=== PATIENT | male | born 1945 | race Caucasian/White ===

== ENCOUNTER 2016-11-17 00:06 | Observation (INO) | payer OTHER ==
[~2016-11-17] VITALS: Ht 182.9 cm; Wt 143.0 kg
[~2016-11-17 00:06] MED LIST: TAMS0.4C38 PO
[2016-11-17] MEDS ORDERED: SODIUM CHLORIDE 0.9% 1000ML 1,000 ML IV STA (00:27)
[2016-11-17] MEDS ORDERED: LORAZEPAM 2 MG/ML 1 ML VIAL IV STA (00:27)
[2016-11-17] MEDS ORDERED: ONDANSETRON INJ 2 MG/ML 2 ML VIAL IV STA (00:27)
[2016-11-17 00:39] LABS: HEMATOCRIT 43.2 % (42-52); MEAN CELL VOLUME 87.4 fL (80-100); MEAN CORPUSCULAR HEMOGLOBIN 31.2 pg (25-34); MEAN CORPUSCULAR HGB CONC 35.6 g/dl (32-36); MEAN PLATELET VOLUME 9.6 fL (7.4-10.4); PLATELET COUNT 192 K/uL (130-400); RED BLOOD COUNT 4.94 M/uL (4.7-6.1); WHITE BLOOD COUNT 8.95 K/uL (4.8-10.8)
[2016-11-17] MEDS ORDERED: ASCO500C43 PO (00:43)
[2016-11-17] MEDS ORDERED: OMEG10007 PO (00:43)
--- NOTE | 2016-11-17 00:52 | EMERGENCY ROOM VISIT NOTE ---
History Report prepared by Nahomi: Santi Downs Under the Supervision of: Dr. Dayna Samaniego M.D. 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 History of Present Illness The patient is a 71 year old male who presents to the Emergency Room with complaints of waxing and waning dizziness that began 90 minutes prior to arrival. The patient states that he was sitting down watching football when the room began to spin around him. He is still currently dizzy and also complains of nausea and vomiting. He denies unilateral weakness but has difficulty ambulating d/t dizziness. 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 A total of 10 systems reviewed and were otherwise negative. Past Medical & Surgical Medical Problems: (1) BPH (benign prostatic hypertrophy) (2) Dizziness (3) Hypertension (4) Obesity Surgical Problems: (1) H/O cataract removal with insertion of prosthetic lens (2) History of total left hip arthroplasty Family History Diabetes mellitus FHx: heart disease Hypertension Kidney disease Kidney stones Social History Smoking Status: Never Smoker Alcohol Use: none Marital Status: Housing Status: lives with family Current/Historical Medications Scheduled Ascorbic Acid (Vitamin C 500 mg), 1,000 MG PO DAILY Fish Oil ([place]-3), 1 CAP PO DAILY Tamsulosin Hcl (Flomax), 0.4 MG PO DAILY Scheduled PRN Cyclobenzaprine HCl (Cyclobenzaprine HCl), 10 MG PO TID PRN for Muscle Spasms Meclizine HCl (Meclizine HCl), 1 TAB PO Q8 PRN for vertigo Allergies Coded Allergies: Levofloxacin (Verified Allergy, Unknown, HIVES, 11/17/16) per records of Dr. NERI. Ppatient unsure when he recieved this med Physical Exam Vital Signs Date Time Temp Pulse Resp B/P Pulse Ox O2 Delivery O2 Flow Rate FiO2 11/17/16 05:05 68 20 150/82 93 Room Air 11/17/16 04:32 72 11/17/16 03:53 65 18 156/82 93 Room Air 11/17/16 03:33 60 18 173/101 95 Room Air 11/17/16 02:38 65 18 136/82 98 Room Air 11/17/16 01:49 65 18 186/83 96 Room Air 11/17/16 01:12 60 16 156/79 95 Nasal Cannula 2.0 11/17/16 01:12 95 Nasal Cannula 2.0 11/17/16 00:45 58 18 160/85 95 11/17/16 00:26 57 11/17/16 00:16 98 Room Air 11/17/16 00:09 36.3 58 18 169/83 97 Room Air Physical Exam Vital signs reviewed. General: Obese well-appearing older male, in mild discomfort. HEENT: No scleral icterus, PERRLA, neck supple. Atraumatic. Cardiovascular: Regular rate and rhythm, no extra sounds. Pulmonary: Hypoxic on room air. Clear to auscultation bilaterally, normal work of breathing. Abdomen: Abdomen is obese. Soft, nontender, nondistended, positive bowel sounds. Musculoskeletal: Atraumatic, no peripheral edema. Neurologic: Patient awake alert and oriented x 3, full strength in all 4 extremities. Minimal horizontal nystagmus. Cranial nerves 2 through 12 grossly intact. Skin: Warm, dry, no rash Medical Decision & Procedures Laboratory Results 11/17/16 00:20 Red Blood Count 4.94, Mean Corpuscular Volume 87.4, Mean Corpuscular Hemoglobin 31.2, Mean Corpuscular Hemoglobin Concent 35.6, Mean Platelet Volume 9.6 Test 11/17/16 00:20 White Blood Count 8.95 K/uL (4.8-10.8) Red Blood Count 4.94 M/uL (4.7-6.1) Hemoglobin 15.4 g/dL (14.0-18.0) Hematocrit 43.2 % (42-52) Mean Corpuscular Volume 87.4 fL (80-100) Mean Corpuscular Hemoglobin 31.2 pg (25-34) Mean Corpuscular Hemoglobin Concent 35.6 g/dl (32-36) Platelet Count 192 K/uL (130-400) Mean Platelet Volume 9.6 fL (7.4-10.4) RDW Standard Deviation 41.3 fL (36.4-46.3) RDW Coefficient of Variation 12.8 % (11.5-14.5) Neutrophils % (Manual) 24.8 % Lymphocytes % (Manual) 30.1 % Monocytes % (Manual) 9.7 % Eosinophils % (Manual) 1.8 % Basophils % (Manual) 0.9 % (0-2) Neutrophils # (Manual) 2.22 K/uL (1.4-6.5) Total Absolute Neutrophils 2.22 K/uL (1.4-6.5) Lymphocytes # (Manual) 2.69 K/uL (1.2-3.4) Total Absolute Lymphocytes 5.62 K/uL (1.2-3.4) Monocytes # (Manual) 0.87 K/uL (0.11-0.59) Eosinophils # (Manual) 0.16 K/uL (0-0.5) Basophils # (Manual) 0.08 K/uL (0-0.2) Percent Large Granular Lymphocytes 32.7 % Absolute Large Granular Lymphocytes 2.93 K/uL Blood Smear Review Magnesium Level 2.1 mg/dl (1.8-2.4) Total Bilirubin 0.3 mg/dl (0.2-1) Direct Bilirubin < 0.1 mg/dl (0-0.2) Aspartate Amino Transf (AST/SGOT) 21 U/L (15-37) Alanine Aminotransferase (ALT/SGPT) 23 U/L (12-78) Alkaline Phosphatase 60 U/L (45-117) Total Protein 7.5 gm/dl (6.4-8.2) Albumin 3.4 gm/dl (3.4-5.0) Laboratory results per my review. Medications Administered Medications (Trade) Dose Ordered Sig/Jhoan Route Start Time Stop Time Status Last Admin Dose Admin Sodium Chloride (Nss 1000ml) 1,000 ml @ 999 mls/hr Q1H1M STAT IV 11/17/16 00:27 11/17/16 01:27 DC 11/17/16 00:42 999 MLS/HR Lorazepam (Ativan Inj) 1 mg NOW STAT IV 11/17/16 00:27 11/17/16 00:28 DC 11/17/16 00:43 1 MG Ondansetron HCl (Zofran Inj) 4 mg NOW STAT IV 11/17/16 00:27 11/17/16 00:28 DC 11/17/16 00:42 4 MG Potassium Chloride (Klor-Con M10) 40 meq NOW STAT PO 11/17/16 02:48 11/17/16 02:49 DC 11/17/16 03:00 40 MEQ Potassium Chloride (Kcl 10 Meq / Wtr) 20 meq NOW STAT IV 11/17/16 04:03 11/17/16 04:05 DC 11/17/16 04:35 20 MEQ Methylprednisolone Sodium Succinate (Solu-Medrol IV) 125 mg NOW STAT IV 11/17/16 04:03 11/17/16 04:05 DC 11/17/16 04:36 125 MG ED Course 0026: Past medical records reviewed. The patient was evaluated in room A2. A complete history and physical examination was performed. 0027: Ordered Zofran 4 mg IV, Lorazepam 1 mg IV, Sodium Chloride 1000 mL @ 999 mL/hr IV. 0248: Ordered Potassium Chloride 40 mew PO. 0250: Upon reevaluation, the patient appeared to have improvement of his symptoms. I discussed findings with him. He verbalized agreement of the treatment plan. The patient was discharged home. Medical Decision Differential diagnosis: Etiologies such as benign positional vertigo, dehydration, hypovolemia, anemia, tumor, infection, hypoglycemia, electrolyte abnormalities, cardiac sources, intracerebral event, toxicologic, neurologic, as well as others were entertained. This pt was evaluated and appeared to be in no distress. IV access was obtained and lab work was drawn. Pt was hydrated with NSS, given IV zofran and ativan. Pt was given oral meclizine and IV solu medral. He had improvement in symptoms and attempted to ambulate to the rest room. Pt became dizzy, unsteady with gait and vomited. He was placed back in bed and was feeling improved. Potassium was repleted. Pt was d/w the hospitalist service for further management. Pt and family were aware of the plan and agreed. Impression Primary Impression: Vomiting Additional Impression: Vertigo Scribe Attestation The scribe's documentation has been prepared under my direction and personally reviewed by me in its entirety. I confirm that the note above accurately reflects all work, treatment, procedures, and medical decision making performed by me. Departure Information Dispostion Home / Self-Care Prescriptions Cyclobenzaprine HCl (Cyclobenzaprine HCl) 10 Mg Tab 10 MG PO TID Y for Muscle Spasms for 30 Days, #90 TAB 4 Refills Prov: Josefa Long M.D. 11/18/16 Meclizine HCl (Meclizine HCl) 25 Mg Tab 1 TAB PO Q8 Y for vertigo, #20 TAB Prov: Dayna Samaniego M.D. 11/17/16 Referrals Joseph Christie M.D. (PCP) Forms HOME CARE DOCUMENTATION FORM, IMPORTANT VISIT INFORMATION, WORK / SCHOOL INSTRUCTIONS Patient Instructions [facility] Additional Instructions Diagnosis: Vomiting, vertigo Meclizine 25 mg every 8 hours as needed for vertigo. Zofran 4 mg ODT every 6 hours as needed for nausea. Drink plenty of clear fluids. Follow-up with your physician this week for reevaluation. Return to the ER for worsening of symptoms or any medical concerns. Problem Qualifiers Primary Impression: Vomiting Vomiting type: unspecified Vomiting Intractability: intractable Nausea presence: with nausea Qualified Codes: R11.2 - Nausea with vomiting, unspecified
[2016-11-17 00:56] LABS: BLOOD UREA NITROGEN 21 mg/dl (7-18); BUN/CREATININE RATIO 18.7 (10-20); CALCIUM 8.8 mg/dl (8.5-10.1); CARBON DIOXIDE 23 mmol/L (21-32); CHLORIDE 105 mmol/L (98-107); GLUCOSE 176 mg/dl (70-99); MAGNESIUM 2.1 mg/dl (1.8-2.4); POTASSIUM 3.2 mmol/L (3.5-5.1); SODIUM 142 mmol/L (136-145)
[2016-11-17 00:59] LABS: ALKALINE PHOSPHATASE 60 U/L (45-117); ALT/SGPT 23 U/L (12-78); AST/SGOT 21 U/L (15-37)
[2016-11-17 01:11] LABS: BASO ABS # 0.08 K/uL (0-0.2); BASOPHIL % 0.9 % (0-2); EOSINOPHIL % 1.8 %; LARGE GRANULAR LYMPH ABSOLUTE 2.93 K/uL; LARGE GRANULAR LYMPHOCYTE % 32.7 %; LYMPH ABS # 2.69 K/uL (1.2-3.4); LYMPHOCYTE % 30.1 %; NEUTROPHILS % 24.8 %
[2016-11-17 01:13] LABS: COMPLETE YES
[2016-11-17] MEDS ORDERED: POTASSIUM CHLORIDE 10 MEQ TABCR PO STA (02:48)
[2016-11-17] MEDS ORDERED: ANT25 PO (03:03)
[2016-11-17] MEDS ORDERED: ONDANSETRON HOME PACK 4MG OD TAB PO ONE (03:15)
[2016-11-17] MEDS ORDERED: POTASSIUM CHLORIDE 10 MEQ / 100ML WTR IV STA (04:03)
[2016-11-17] MEDS ORDERED: METHYLPREDNISOLONE 125 MG VIAL IV STA (04:03)
[2016-11-17] MEDS ORDERED: ONDANSETRON INJ 2 MG/ML 2 ML VIAL IV PRN (05:15)
[2016-11-17] MEDS ORDERED: ACETAMINOPHEN 325 MG TAB PO PRN (05:15)
[2016-11-17] MEDS ORDERED: MECLIZINE HCL 25 MG TAB PO PRN (05:15)
[2016-11-17] MEDS ORDERED: IV FLUIDS COMPLETED PRN (05:30)
[2016-11-17 06:10] VITALS: BP 180/77; PULSE 70; TEMP 36.7; O2SAT 91; Ht 182.9 cm; Wt 143.0 kg
--- NOTE | 2016-11-17 06:15 | DIAGNOSTIC IMAGING REPORT ---
CT SCAN OF THE BRAIN WITHOUT IV CONTRAST CLINICAL HISTORY: Vertigo. COMPARISON STUDY: No priors. TECHNIQUE: Unenhanced axial CT scan of the brain is performed from the vertex to the skull base. CT DOSE: 537.48 mGy.cm FINDINGS: Brain parenchyma: There are age-related involutional changes noting mild subcortical and periventricular microangiopathic change. There is no hemorrhage, mass effect, or evidence of acute territorial ischemia by CT criteria. Alberts-white matter is preserved. No extra-axial fluid collection is seen. Ventricles, sulci, cisterns: Prominent secondary to involutional change. Intracranial vasculature: There is atherosclerotic calcification of the cavernous carotid and vertebral arteries. Calvarium: Unremarkable. Sinuses and mastoids: The visualized paranasal sinuses are clear. The mastoid air cells are well pneumatized. Orbits: The bony orbits are grossly intact. There is a right ocular lens implant. IMPRESSION: There is no hemorrhage, mass effect, or evidence of acute territorial ischemia by CT criteria. Electronically signed by: Chapincito Sanderson M.D. 11/17/2016 6:13 AM Dictated Date/Time: 11/17/2016 6:11 AM
--- NOTE | 2016-11-17 06:24 | HISTORY & PHYSICAL EXAMINATION ---
DATE OF ADMISSION: 11/17/2016 CHIEF COMPLAINT: Dizziness since this morning. HISTORY OF PRESENT COMPLAINT: He is a 71-year-old male with significant past medical history including hypertension, obesity, benign prostatic hypertrophy, prostate cancer. He apparently has been complaining of dizziness. He was watching TV and watching football and he had to go to the bathroom and he had epigastric discomfort with nausea and vomited about 5 or 6 times. No diarrhea. He was also complaining of severe headache with dizziness that persisted for a while. The dizziness involves while moving the head and also associated with pain around the eyes and the headache. He did not have any numbness or tingling in the extremities. With these symptoms he called the ambulance and was brought into the Emergency Room. In the ER, he was noted to have a slight decrease in potassium and he was very dizzy on movement. From that point, he got meclizine without much improvement and then he was advised for admission. PAST MEDICAL HISTORY: Significant for hypertension, obesity, prostate cancer with prostatic hypertrophy, and nephrolithiasis. PAST SURGICAL HISTORY: Cataract surgery, cystoscopy and total hip replacement. FAMILY HISTORY: Brother has colon cancer. Father had heart disorder. Maternal grandfather heart disorder. ALLERGIES: LEVOFLOXACIN. MEDICATIONS: He has been taking fish oil 1 capsule daily, meclizine 1 tablet p.o. q. 8 hourly as needed, Flomax 0.4 mg daily, ascorbic acid 1000 mg daily. SOCIAL HISTORY: He is and lives with his . He does not drink and/or smoke and he has been reasonably ambulant. REVIEW OF SYSTEMS: CENTRAL NERVOUS SYSTEM: He complains of headache and pain around the eyes with the dizziness and nausea, vomiting. RESPIRATORY: No cough or phlegm. No shortness of breath. CARDIOVASCULAR: No chest pain, palpitation. GASTROINTESTINAL: Abdominal discomfort in the epigastric region with nausea and vomiting, no diarrhea. GENITOURINARY: No problem with urine. MUSCULOSKELETAL: No acute arthritis in any joint. EAR, NOSE AND THROAT: No acute symptoms. GENERAL: He denies history of any rash and/or enlargement of lymph nodes. LABORATORY DATA: Noted today white count was 8.95, H\T\H 15.4/43.2, platelet was 192. Sodium 142, potassium 3.2, chloride 105, BUN 21, creatinine 1.10, random glucose 176. LFTs normal. CT scan of the head is pending. IMPRESSION AND PLAN: 1. Dizziness may be secondary to dehydration or labyrinthine disease. He will be admitted to medical floor. He will be given IV fluid and he may need Gisella maneuver if the dizziness continued. He will be given meclizine for dizziness. 2. Nausea, vomiting with epigastric discomfort may have gastritis. Again, IV fluid and Maalox and Mylanta for mild epigastric discomfort. 3. Hypertension. Blood pressure seems to be controlled at this time. Continue with current medication. 4. Gastrointestinal prophylaxis with Maalox and Mylanta. 5. Deep venous thrombosis prophylaxis with subcutaneous heparin. 6. Code status: He will be full code. In my clinical judgment, the beneficiary meets criteria as per CMS for 2 midnight stay in the hospital. KIERSTEN
[2016-11-17] MEDS: NSS + 20MEQ KCL 1000ML 1,000 ML IV SCH ×2 (06:29→12:27)
[2016-11-17] MEDS: ASCORBIC ACID 500 MG TAB PO SCH (08:01)
[2016-11-17] MEDS: TAMSULOSIN HCL 0.4 MG CAP PO SCH (08:01)
[2016-11-17] MEDS: OMEGA-3 (PURIFIED FISH OIL) 1 GM CAP PO SCH (08:01)
[2016-11-17] MEDS ORDERED: HEPARIN SOD 5000 UNIT/0.5 ML CARP SQ SCH (14:00)
[2016-11-17] MEDS ORDERED: MoRPHine SULFATE 2 MG/ML CARP IV PRN (15:30)
[2016-11-17] MEDS ORDERED: HydrALAZINE HCL 20 MG/ML VIAL IV. PRN (15:30)
[2016-11-17] MEDS ORDERED: PROMETHAZINE HCL INJ 12.5 MG in SODIUM CHLORIDE 0.9% 50ML 50 ML IV PRN (15:30)
[2016-11-17] MEDS ORDERED: LORAZEPAM 2 MG/ML 1 ML VIAL IV PRN (15:30)
[2016-11-17] MEDS ORDERED: LORAZEPAM INJ 0.5 MG in SYRINGE 0.75 ML IV PRN (15:30)
[2016-11-17 15:45] VITALS: BP 145/72; PULSE 77
--- NOTE | 2016-11-17 16:48 | Progress Note ---
Internal Med Progress Note Date of Service: Nov 17, 2016. Provider Documentation: SUBJECTIVE: feels a bit better now dizzy spell has minimized , getting dizzy spell when moving head side to side or changing position has persisted retro-orbital and occipital headache -improved no fever no visual disturbance no weakness or paresthesia in extremities OBJECTIVE: Vital Signs-as noted below Exam: General-no sign of distress Eyes-+ nystagmus on lateral gaze, PERRLA/EOMI ENT-moist oral mucosa , normal oropharynx Neck-tenderness on muscle of rt sided neck , no neck stiffness Lungs-CTA no wheeze or rales Heart-regular S1/S2 Abdomen-soft,non tender Extremities-no lower ext edema Neuro-no focal neurological deficit Lab data as noted below. ASSESSMENT & PLAN: HEADACHE : pt mentions of having neck muscle strain a week back on rt side while turning head had radiating pain to back of head -ongoing yesterday as he was watching TV developed dizzy spell and retroorbital headache associated with Nausea CT HEAD : IMPRESSION: There is no hemorrhage, mass effect, or evidence of acute territorial ischemia by CT criteria. 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 -no prior hx received IV Solu Medrol in ED will order Toradol PRN PRN Flexeril for neck muscle spasm MRI or brain ,MRA Of neck ordered to R/O post circulation compromise Neurology eval requested DIZZY SPELL worse with turning head , change of movement suggestive of BPPV ( benign paroxysmal positional vertigo ) PRN Meclizine symptom has improved Neurology eval PT consult for Gisella maneuver LOW K: due to GI loss -nausea /vomiting replaced follow PRP HTN: no prior dx , not on any meds BP elevated possible due to anxiety , headache cont pain control , PRN Ativan PRN IV hydralazine for SBP > 160 DVT PROPHYLAXIS scd and teds ambulate DISPOSITION Discharge home when medically stable Medicine follow up with Dr Mckinney Vital Signs: Date Time Temp Pulse Resp B/P Pulse Ox O2 Delivery O2 Flow Rate FiO2 11/17/16 16:00 Room Air 11/17/16 15:45 77 20 145/72 11/17/16 08:00 Room Air 11/17/16 06:10 36.7 70 18 180/77 91 Room Air 11/17/16 05:46 65 18 156/85 96 Room Air 11/17/16 05:05 68 20 150/82 93 Room Air 11/17/16 04:32 72 11/17/16 03:53 65 18 156/82 93 Room Air 11/17/16 03:33 60 18 173/101 95 Room Air 11/17/16 02:38 65 18 136/82 98 Room Air 11/17/16 01:49 65 18 186/83 96 Room Air 11/17/16 01:12 60 16 156/79 95 Nasal Cannula 2.0 11/17/16 01:12 95 Nasal Cannula 2.0 11/17/16 00:45 58 18 160/85 95 11/17/16 00:26 57 11/17/16 00:16 98 Room Air 11/17/16 00:09 36.3 58 18 169/83 97 Room Air Lab Results: Results Past 24 Hours Test 11/17/16 00:20 11/17/16 06:47 Range/Units White Blood Count 8.95 4.8-10.8 K/uL Red Blood Count 4.94 4.7-6.1 M/uL Hemoglobin 15.4 14.0-18.0 g/dL Hematocrit 43.2 42-52 % Mean Corpuscular Volume 87.4 80-100 fL Mean Corpuscular Hemoglobin 31.2 25-34 pg Mean Corpuscular Hemoglobin Concent 35.6 32-36 g/dl Platelet Count 192 130-400 K/uL Mean Platelet Volume 9.6 7.4-10.4 fL RDW Standard Deviation 41.3 36.4-46.3 fL RDW Coefficient of Variation 12.8 11.5-14.5 % Neutrophils % (Manual) 24.8 % Lymphocytes % (Manual) 30.1 % Monocytes % (Manual) 9.7 % Eosinophils % (Manual) 1.8 % Basophils % (Manual) 0.9 0-2 % Neutrophils # (Manual) 2.22 1.4-6.5 K/uL Total Absolute Neutrophils 2.22 1.4-6.5 K/uL Lymphocytes # (Manual) 2.69 1.2-3.4 K/uL Total Absolute Lymphocytes 5.62 1.2-3.4 K/uL Monocytes # (Manual) 0.87 0.11-0.59 K/uL Eosinophils # (Manual) 0.16 0-0.5 K/uL Basophils # (Manual) 0.08 0-0.2 K/uL Percent Large Granular Lymphocytes 32.7 % Absolute Large Granular Lymphocytes 2.93 K/uL Sodium Level 142 136-145 mmol/L Potassium Level 3.2 3.5-5.1 mmol/L Chloride Level 105 98-107 mmol/L Carbon Dioxide Level 23 21-32 mmol/L Anion Gap 14.0 3-11 mmol/L Blood Urea Nitrogen 21 7-18 mg/dl Creatinine 1.10 0.60-1.40 mg/dl Est Creatinine Clear Calc Drug Dose 90.4 ml/min Estimated GFR () 77.9 Estimated GFR (Non- 67.2 BUN/Creatinine Ratio 18.7 10-20 Random Glucose 176 70-99 mg/dl Calcium Level 8.8 8.5-10.1 mg/dl Magnesium Level 2.1 1.8-2.4 mg/dl Total Bilirubin 0.3 0.2-1 mg/dl Direct Bilirubin < 0.1 0-0.2 mg/dl Aspartate Amino Transf (AST/SGOT) 21 15-37 U/L Alanine Aminotransferase (ALT/SGPT) 23 12-78 U/L Alkaline Phosphatase 60 45-117 U/L Total Protein 7.5 6.4-8.2 gm/dl Albumin 3.4 3.4-5.0 gm/dl Prothrombin Time 11.0 9.0-12.0 SECONDS Prothromb Time International Ratio 1.0 0.9-1.1
[2016-11-17] MEDS ORDERED: KETOROLAC TROMETHAMINE 15 MG/ML VIAL IV PRN (17:45)
[2016-11-17] MEDS ORDERED: LORAZEPAM 2 MG/ML 1 ML VIAL IV SCH (18:00)
[2016-11-17] MEDS: CYCLOBENZAPRINE HCL 10 MG TAB PO SCH (18:28)
--- NOTE | 2016-11-17 22:14 | DIAGNOSTIC IMAGING REPORT ---
MRI OF THE BRAIN COMBO CLINICAL HISTORY: Dizziness and headache. COMPARISON STUDY: CT of the brain dated 11/17/2016. TECHNIQUE: MRI of the brain was performed utilizing various T1 and T2-weighted sequences in the axial, sagittal, and coronal planes. Contrast-enhanced sequences were acquired following the administration of 20 cc of Magnevist. FINDINGS: Brain parenchyma: There are age-related involutional changes noting minimal patchy subcortical and periventricular microangiopathic disease. There is no hemorrhage or mass effect. There is no restricted diffusion to suggest acute ischemia. No enhancing mass lesion is identified on the postcontrast images. Alberts-white matter differentiation is preserved. No extra-axial fluid collection is seen. The cerebellar tonsils are normal in configuration. Ventricles, sulci, and cisterns: Slightly prominent secondary to involutional change. Pituitary and sella: Unremarkable. Intracranial vasculature: Normal flow voids are maintained at the skull base. Orbits: The bony orbits are grossly intact. Orbital contents are normal in appearance noting a right ocular lens implant. Sinuses and mastoids: There is trace mucosal thickening within the maxillary antra. The remaining paranasal sinuses and mastoid air cells are clear. Calvarium: Unremarkable. Cervical cord: Partially visualized cervical spinal cord is normal in morphology and signal intensity. IMPRESSION: No acute intracranial abnormality. Electronically signed by: Chapincito Sanderson M.D. 11/17/2016 10:13 PM Dictated Date/Time: 11/17/2016 10:09 PM
[2016-11-17] MEDS ORDERED: MAGNEVIST IV PRN (22:15)
--- NOTE | 2016-11-17 22:18 | DIAGNOSTIC IMAGING REPORT ---
MR ANGIOGRAM OF THE NECK COMBO CLINICAL HISTORY: Headache and dizziness. COMPARISON STUDY: No priors. TECHNIQUE: Axial 3-D [id number] MR angiography of the neck is performed. Subsequently, following the IV administration of 20 cc of Magnevist coronal MR angiogram of the neck was performed to corroborate the findings. 3-D reformats are created and assessed. All measurements were calculated based on NASCET criteria. FINDINGS: Visualized portions of the thoracic aorta are normal in caliber. The aortic arch demonstrates standard 3-vessel anatomy. The subclavian arteries are widely patent bilaterally. The right common carotid artery is widely patent, as are the right internal and external carotid arteries. The left common carotid artery is widely patent, as are the left internal and external carotid arteries. The vertebral arteries are widely patent and codominant. The partially imaged intracranial vessels at the skull base are within normal limits. IMPRESSION: Unremarkable MR angiogram of the neck. Electronically signed by: Chapincito Sanderson M.D. 11/17/2016 10:16 PM Dictated Date/Time: 11/17/2016 10:13 PM
[2016-11-17 23:09] VITALS: BP 146/71; PULSE 70; TEMP 36.8; O2SAT 97
[2016-11-18] VITALS: O2SAT 91
[2016-11-18] MEDS: CYCLOBENZAPRINE HCL 10 MG TAB PO SCH ×2 (00:11→09:07)
[2016-11-18 06:48] LABS: BUN/CREATININE RATIO 21.7 (10-20); CALCIUM 8.3 mg/dl (8.5-10.1); CREATININE 0.95 mg/dl (0.60-1.40); POTASSIUM 4.1 mmol/L (3.5-5.1)
[2016-11-18 07:28] VITALS: BP 132/71; PULSE 62; TEMP 36.4; O2SAT 98
--- NOTE | 2016-11-18 08:02 | Discharge Instructions ---
Discharge Instructions Admission Reason for Admission: Dizziness & Giddiness, Gastritis, N & V Discharge Discharge Diagnosis / Problem: DIZZY SPELL /HEADACHE Discharge Goals Goal(s): Improve disease control, Diagnostic testing Activity Recommendations Activity Limitations: resume your previous activity . Instructions / Follow-Up Instructions / Follow-Up HOSPITAL FOLLOW UP WITH DR Christie ON 11/27/2016 AT 12:30 PM [facility] NEUROLOGY FOLLOW UP WITH DR Teresita Daniels ON 11/28/2016 @ 12:45 PM Neurology [facility] Diet Patient's current hospital diet: Regular Diet Discharge Diet Recommended Diet: Regular Diet Pending Studies Studies pending at discharge: no Medical Emergencies . Who to Call and When: Medical Emergencies: If at any time you feel your situation is an emergency, please call 911 immediately. . Non-Emergent Contact Non-Emergency issues call your: Primary Care Provider . . "Provider Documentation" section prepared by Josefa Long. VTE Core Measure Inpt VTE Proph given/why not?: Marielle Guzman, SCD's
[2016-11-18] MEDS ORDERED: FLX10 PO (08:04)
[2016-11-18] MEDS: OMEGA-3 (PURIFIED FISH OIL) 1 GM CAP PO SCH (09:06)
[2016-11-18] MEDS: TAMSULOSIN HCL 0.4 MG CAP PO SCH (09:06)
[2016-11-18] MEDS: ASCORBIC ACID 500 MG TAB PO SCH (09:07)
--- NOTE | 2016-11-18 10:01 | Progress Note ---
Progress Note ATTENDING NOTE: MRI /MRA OF NECK REVIEWED : no abnormality noted had PT eval today evaluated for BPPV - [place]-Hallpike testing did not reproduce any symptoms. Pt denies having dizziness or headache this AM stable to be discharged home today Arrangements made for out patient follow up with Neurology Dr Daniels at [facility] office on @ 12: 45 pm
[2016-11-18 10:15] VITALS: BP 132/71; PULSE 62; TEMP 36.4; O2SAT 98
--- NOTE | 2016-11-18 11:09 | Progress Note ---
Internal Med Progress Note Date of Service: Nov 18, 2016. Provider Documentation: SUBJECTIVE: no episode of dizzy spell today , no nausea finished breakfast no headache feels absolutely fine Had PT eval with Ildefonso diaz pike Maneuver -no dizzy spell or symptom revoked MRI /MRA of scan -normal study stable to be discharged home today OBJECTIVE: Vital Signs-as noted below Exam: General-no sign of distress , ambulating independently in room ,no dizzy spell Eyes-non icteric sclera , no nystagmus noted , PERRLA/EOMI ENT-moist oral mucosa , normal oropharynx Neck-tenderness on muscle of rt sided neck , no neck stiffness Lungs-CTA no wheeze or rales Heart-regular S1/S2 Abdomen-soft,non tender Extremities-no lower ext edema Neuro-no focal neurological deficit Lab data as noted below. 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 no visual symptom PRN Flexeril ordered neck muscle spasm MRI or brain ,MRA Of neck normal study stable to be discharged home today out pt follow up with Neurology DIZZY SPELL symptom has resolved possible due to dehydration MRA of neck /MRI of brain negative study Lawley Diaz pike-negative -no BPPV ( benign paroxysmal positional vertigo ) LOW K: corrected normal level today ELEVATED BP : resolved, BP wnl toay no prior dx , not on any meds BP was elevated possible due to anxiety , headache DVT PROPHYLAXIS scd and teds ambulate DISPOSITION Discharge home today Medicine follow up with Dr Mckinney Vital Signs: Date Time Temp Pulse Resp B/P Pulse Ox O2 Delivery O2 Flow Rate FiO2 11/18/16 10:15 36.4 62 18 98 Room Air 11/18/16 10:11 Room Air 11/18/16 07:28 36.4 62 18 132/71 98 Room Air 11/18/16 00:00 91 Room Air 11/17/16 23:09 36.8 70 18 146/71 97 Room Air 11/17/16 16:00 Room Air 11/17/16 15:45 77 20 145/72 Lab Results: Results Past 24 Hours Test 11/18/16 05:20 Range/Units Sodium Level 141 136-145 mmol/L Potassium Level 4.1 3.5-5.1 mmol/L Chloride Level 107 98-107 mmol/L Carbon Dioxide Level 23 21-32 mmol/L Anion Gap 11.0 3-11 mmol/L Blood Urea Nitrogen 21 7-18 mg/dl Creatinine 0.95 0.60-1.40 mg/dl Est Creatinine Clear Calc Drug Dose 104.7 ml/min Estimated GFR () 93.0 Estimated GFR (Non- 80.2 BUN/Creatinine Ratio 21.7 10-20 Random Glucose 148 70-99 mg/dl Calcium Level 8.3 8.5-10.1 mg/dl
--- NOTE | 2016-11-18 11:11 | Discharge Summary ---
Discharge Summary Admission Date: Nov 17, 2016 at 05:12 Discharge Date: Nov 18, 2016 Discharge Disposition: Home Principal Diagnosis: DIZZY SPELL /HEADACHE Procedures: CT SCAN OF THE BRAIN WITHOUT IV CONTRAST IMPRESSION: There is no hemorrhage, mass effect, or evidence of acute territorial ischemia by CT criteria. MR ANGIOGRAM OF THE NECK COMBO IMPRESSION: Unremarkable MR angiogram of the neck. MRI OF THE BRAIN COMBO CLINICAL HISTORY: Dizziness and headache. COMPARISON STUDY: CT of the brain dated 11/17/2016. IMPRESSION: No acute intracranial abnormality. Pending Studies/Follow-Up: Instructions / Follow-Up HOSPITAL FOLLOW UP WITH DR Christie ON 11/27/2016 AT 12:30 PM [facility] NEUROLOGY FOLLOW UP WITH DR Teresita Daniels ON 11/28/2016 @ 12:45 PM Neurology [facility] Medication Reconciliation New Medications: Cyclobenzaprine HCl (Cyclobenzaprine HCl) 10 Mg Tab 10 MG PO TID PRN for Muscle Spasms for 30 Days, #90 TAB 4 Refills Continued Medications: Ascorbic Acid (Vitamin C 500 mg) 1 Chw Chw 1000 MG PO DAILY Fish Oil ([place]-3) 1 Ea Cap 1 CAP PO DAILY, CAP Meclizine HCl (Meclizine HCl) 25 Mg Tab 1 TAB PO Q8 PRN for vertigo, #20 TAB Tamsulosin Hcl (Flomax) 0.4 Mg Cap 0.4 MG PO DAILY, CAP Referrals At Discharge Follow up Referrals: Physician Referral - 11/27/16 with Joseph Christie M.D. Physician Referral - 11/28/16 with Teresita Daniels M.D. Admission Information HPI (per Admitting provider): DATE OF ADMISSION: 11/17/2016 CHIEF COMPLAINT: Dizziness since this morning. HISTORY OF PRESENT COMPLAINT: He is a 71-year-old male with significant past medical history including hypertension, obesity, benign prostatic hypertrophy, prostate cancer. He apparently has been complaining of dizziness. He was watching TV and watching football and he had to go to the bathroom and he had epigastric discomfort with nausea and vomited about 5 or 6 times. No diarrhea. He was also complaining of severe headache with dizziness that persisted for a while. The dizziness involves while moving the head and also associated with pain around the eyes and the headache. He did not have any numbness or tingling in the extremities. With these symptoms he called the ambulance and was brought into the Emergency Room. In the ER, he was noted to have a slight decrease in potassium and he was very dizzy on movement. From that point, he got meclizine without much improvement and then he was advised for admission. PAST MEDICAL HISTORY: Significant for hypertension, obesity, prostate cancer with prostatic hypertrophy, and nephrolithiasis. PAST SURGICAL HISTORY: Cataract surgery, cystoscopy and total hip replacement. FAMILY HISTORY: Brother has colon cancer. Father had heart disorder. Maternal grandfather heart disorder. ALLERGIES: LEVOFLOXACIN. MEDICATIONS: He has been taking fish oil 1 capsule daily, meclizine 1 tablet p.o. q. 8 hourly as needed, Flomax 0.4 mg daily, ascorbic acid 1000 mg daily. SOCIAL HISTORY: He is and lives with his . He does not drink and/or smoke and he has been reasonably ambulant. Physical Exam (per Admitting): REVIEW OF SYSTEMS: CENTRAL NERVOUS SYSTEM: He complains of headache and pain around the eyes with the dizziness and nausea, vomiting. RESPIRATORY: No cough or phlegm. No shortness of breath. CARDIOVASCULAR: No chest pain, palpitation. GASTROINTESTINAL: Abdominal discomfort in the epigastric region with nausea and vomiting, no diarrhea. GENITOURINARY: No problem with urine. MUSCULOSKELETAL: No acute arthritis in any joint. EAR, NOSE AND THROAT: No acute symptoms. GENERAL: He denies history of any rash and/or enlargement of lymph nodes. 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 no visual symptom PRN Flexeril ordered neck muscle spasm MRI or brain ,MRA Of neck normal study stable to be discharged home today out pt follow up with Neurology DIZZY SPELL symptom has resolved possible due to dehydration MRA of neck /MRI of brain negative study Ildefonso cortez-negative -no BPPV ( benign paroxysmal positional vertigo ) LOW K: corrected normal level today ELEVATED BP : resolved, BP wnl toay no prior dx , not on any meds BP was elevated possible due to anxiety , headache DVT PROPHYLAXIS scd and teds ambulate DISPOSITION Discharge home today Medicine follow up with Dr Mckinney Discharge Instructions Patient Name: Elias Salmon Unit Number: [id number] Date of : 1945 Patient Status: Admitted Inpatient (obs) Attending Doctor: Josefa Long M.D. DI: Medical v4 Discharge Instructions Admission Reason for Admission: Dizziness & Giddiness, Gastritis, N & V Discharge Discharge Diagnosis / Problem: DIZZY SPELL /HEADACHE Discharge Goals Goal(s): Improve disease control, Diagnostic testing Activity Recommendations Activity Limitations: resume your previous activity . Instructions / Follow-Up Instructions / Follow-Up HOSPITAL FOLLOW UP WITH DR Christie ON 11/27/2016 AT 12:30 PM [facility] NEUROLOGY FOLLOW UP WITH DR Teresita Daniels ON 11/28/2016 @ 12:45 PM Neurology [facility] Diet Patient's current hospital diet: Regular Diet Discharge Diet Recommended Diet: Regular Diet Pending Studies Studies pending at discharge: no Medical Emergencies . Who to Call and When: Medical Emergencies: If at any time you feel your situation is an emergency, please call 911 immediately. . Non-Emergent Contact Non-Emergency issues call your: Primary Care Provider . . "Provider Documentation" section prepared by Josefa Long. VTE Core Measure Inpt VTE Proph given/why not?: Marielle Guzman, SCD's
== END 2016-11-18 11:53 | disposition home or self-care (01) ==
LOC: ENRESERVTM → ENRESERVDT → EDBD 00:06 → C.EDA 00:07 → C.4E 05:12
PROVIDERS: ADMIT Internal Medicine; ATTEND Hospitalist
DX: R42 Dizziness and giddiness (principal); R51 Headache; R11.2 Nausea with vomiting, unspecified; I10 Essential (primary) hypertension; E66.9 Obesity, unspecified; N40.0 Benign prostatic hyperplasia without lower urinary tract symptoms; G43.909 Migraine, unspecified, not intractable, without status migrainosus; Z85.46 Personal history of malignant neoplasm of prostate; Z87.442 Personal history of urinary calculi; Z96.649 Presence of unspecified artificial hip joint; Z98.49 Cataract extraction status, unspecified eye; Z82.49 Family history of ischemic heart disease and other diseases of the circulatory system; Z83.3 Family history of diabetes mellitus; Z84.1 Family history of disorders of kidney and ureter

== ENCOUNTER 2017-05-10 11:42 | Emergency (ER) | payer OTHER ==
[~2017-05-10] VITALS: Ht 182.9 cm; Wt 132.0 kg
[~2017-05-10 11:42] MED LIST changes: +ANT25 PO; +ASCO500C43 PO; +FLX10 PO; +OMEG10007 PO
[2017-05-10] MEDS ORDERED: SODIUM CHLORIDE 0.9% 1000ML 1,000 ML IV STA (11:55)
[2017-05-10] MEDS ORDERED: MECLIZINE HCL 25 MG TAB PO STA (11:55)
[2017-05-10] MEDS ORDERED: ONDANSETRON 8 MG/54 ML D5W IV STA (11:55)
[2017-05-10 11:57] VITALS: TEMP 36.6; Ht 182.9 cm; Wt 132.0 kg
[2017-05-10 12:03] LABS: BASO % 0.1 %; BASO ABS # 0.01 K/uL (0-0.2); COMPLETE YES; EOS % 0.2 %; HEMATOCRIT 44.4 % (42-52); IG% 0.2 %; LYMPH % 15.6 %; LYMPH ABS # 1.47 K/uL (1.2-3.4); MEAN CELL VOLUME 89.3 fL (80-100); MEAN CORPUSCULAR HGB CONC 34.7 g/dl (32-36); MEAN PLATELET VOLUME 9.7 fL (7.4-10.4); MONO % 6.1 %; NEUT % 77.8 %; PLATELET COUNT 165 K/uL (130-400); RED BLOOD COUNT 4.97 M/uL (4.7-6.1)
--- NOTE | 2017-05-10 12:11 | DIAGNOSTIC IMAGING REPORT ---
CHEST ONE VIEW PORTABLE CLINICAL HISTORY: Altered mental status. Weakness. COMPARISON STUDY: July 01, 2016 FINDINGS: The heart is mildly enlarged. There is no failure. There is no focal pulmonary consolidation. There are no pleural effusions.[ IMPRESSION: No active disease in the chest. Electronically signed by: Jeffrey Gonzalez M.D. 05/10/2017 12:10 PM Dictated Date/Time: 05/10/2017 12:09 PM
[2017-05-10 12:12] LABS: ALT/SGPT 22 U/L (12-78); BLOOD UREA NITROGEN 16 mg/dl (7-18); BUN/CREATININE RATIO 14.2 (10-20); CALCIUM 9.5 mg/dl (8.5-10.1); CARBON DIOXIDE 25 mmol/L (21-32); CHLORIDE 105 mmol/L (98-107); GLUCOSE 165 mg/dl (70-99); MAGNESIUM 1.9 mg/dl (1.8-2.4); POTASSIUM 3.9 mmol/L (3.5-5.1); SODIUM 139 mmol/L (136-145)
[2017-05-10 12:13] LABS: PARTIAL THROMBOPLASTIN RATIO 0.9; PROTHROMBIN TIME (PATIENT) 11.1 SECONDS (9.0-12.0)
[2017-05-10 12:21] LABS: ALKALINE PHOSPHATASE 59 U/L (45-117); AST/SGOT 17 U/L (15-37); CKMB/CK RATIO 2.1 (0-3.0)
--- NOTE | 2017-05-10 12:46 | DIAGNOSTIC IMAGING REPORT ---
CT HEAD WITHOUT CONTRAST (CT) CLINICAL HISTORY: Bundle Cutter dizziness. COMPARISON STUDY: 11/17/2016 TECHNIQUE: Axial CT of the brain is performed from the vertex to the skull base. IV contrast was not administered for this examination. CT DOSE: 537.48 mGy.cm FINDINGS: No intra or extra-axial mass lesions are visualized. There is no CT evidence of acute cortical infarction. There is no evidence of midline shift. There is no acute hemorrhage. No calvarial fractures are visualized. There are minimal white matter hypodensities likely on a small vessel basis. There is no evidence of pathologic ventricular dilatation. There is no evidence of acute sinusitis IMPRESSION: Normal noncontrast head CT for age. Electronically signed by: Jeffrey Gonzalez M.D. 05/10/2017 12:45 PM Dictated Date/Time: 05/10/2017 12:43 PM
[2017-05-10] MEDS ORDERED: KETOROLAC TROMETHAMINE 30 MG/ML VIAL IV STA (13:05)
[2017-05-10 13:22] LABS: URINE APPEARANCE CLEAR (CLEAR); URINE BILIRUBIN NEG (NEG); URINE COLOR YELLOW; URINE EPITHELIAL CELL AUTO >30 /lpf (0-5); URINE NITRITE NEG (NEG); URINE SPECIFIC GRAVITY 1.024 (1.000-1.030); UROBILINOGEN NEG (NEG); ZZUR CULT IF INDIC CLEAN CATCH NO
[2017-05-10 13:23] LABS: MANUAL MICROSCOPIC REQUIRED? NO; REVIEW REQ? NO
[2017-05-10] MEDS ORDERED: MECL1TAB42 PO (14:09)
[2017-05-10] MEDS ORDERED: ONDA4TAB10 SL (14:09)
--- NOTE | 2017-05-10 14:09 | EMERGENCY ROOM VISIT NOTE ---
History Report prepared by Scribmendel: Vargas Parra Under the Supervision of: Dr. Roman Servin D.O. First contact with patient: 11:51 Chief Complaint: CHEST PAIN Stated Complaint: CHEST PAIN History of Present Illness The patient is a 71 year old male who presents to the Emergency Room with complaints of constant chest pain beginning 45 minutes ago. He states that his symptoms began with dizziness shortly after getting out of the shower. He proceeded to vomit. The patient states that his dizziness has persisted, but is improved with sitting. He states that his chest pain radiates into his left arm. He denies any shortness of breath. The patient has a history of similar symptoms occurring about six months ago, except he did not have chest pain at the time. Source of History: patient Onset: 45 minutes ago Position: chest Timing: constant Associated Symptoms: + vomiting, No SOB Note: Additional symptoms: dizziness, pain radiating into his left arm. Review of Systems See HPI for pertinent positives & negatives. A total of 10 systems reviewed and were otherwise negative. Past Medical & Surgical Medical Problems: (1) BPH (benign prostatic hypertrophy) (2) Dizziness (3) Hypertension (4) Obesity Surgical Problems: (1) H/O cataract removal with insertion of prosthetic lens (2) History of total left hip arthroplasty Family History Diabetes mellitus FHx: heart disease Hypertension Kidney disease Kidney stones Social History Smoking Status: Never Smoker Alcohol Use: none Marital Status: Housing Status: lives with family Current/Historical Medications Scheduled Ondasetron Odt (Zofran Odt), 4 MG SL Q6H Tamsulosin Hcl (Flomax), 0.4 MG PO DAILY Scheduled PRN Meclizine Hcl (Meclizine Hcl), 1 TAB PO TID PRN for Dizziness or Vertigo Allergies Coded Allergies: Levofloxacin (Verified Allergy, Unknown, HIVES, 11/17/16) per records of Dr. NERI. Ppatient unsure when he recieved this med Physical Exam Vital Signs Date Time Temp Pulse Resp B/P (MAP) Pulse Ox O2 Delivery O2 Flow Rate FiO2 05/10/17 11:57 36.6 63 18 173/84 95 Room Air 05/10/17 11:51 95 Room Air 05/10/17 11:50 59 Physical Exam CONSTITUTIONAL/VITAL SIGNS: Reviewed / noted above. GENERAL: Non-toxic in appearance. INTEGUMENTARY: Warm, dry, and [place]. HEAD: Normocephalic. EYES: without scleral icterus or trauma. ENT/OROPHARYNX: clear and moist. LYMPHADENOPATHY/NECK: Is supple without lymphadenopathy or meningismus. RESPIRATORY: Lungs clear and equal. CARDIOVASCULAR: Regular rate and rhythm. GI/ABDOMEN: Soft and nontender. No organomegaly or pulsatile mass. No rebound or guarding. Normal bowel sounds. EXTREMITIES: Warm and well perfused. BACK: No CVA tenderness. NEUROLOGICAL: Intact without focal deficits. PSYCHIATRIC: normal affect. MUSCULOSKELETAL: Normally developed with good muscle tone. Medical Decision & Procedures ER Provider Diagnostic Interpretation: Radiology results as stated below per my review and radiologist interpretation: CT HEAD WITHOUT CONTRAST (CT) FINDINGS: No intra or extra-axial mass lesions are visualized. There is no CT evidence of acute cortical infarction. There is no evidence of midline shift. There is no acute hemorrhage. No calvarial fractures are visualized. There are minimal white matter hypodensities likely on a small vessel basis. There is no evidence of pathologic ventricular dilatation. There is no evidence of acute sinusitis IMPRESSION: Normal noncontrast head CT for age. Electronically signed by: Jeffrey Gonzalez M.D. CHEST ONE VIEW PORTABLE FINDINGS: The heart is mildly enlarged. There is no failure. There is no focal pulmonary consolidation. There are no pleural effusions.[ IMPRESSION: No active disease in the chest. Electronically signed by: Jeffrey Gonzalez M.D. Laboratory Results 05/10/17 11:38 Red Blood Count 4.97, Mean Corpuscular Volume 89.3, Mean Corpuscular Hemoglobin 31.0, Mean Corpuscular Hemoglobin Concent 34.7, Mean Platelet Volume 9.7, Neutrophils (%) (Auto) 77.8, Lymphocytes (%) (Auto) 15.6, Monocytes (%) (Auto) 6.1, Eosinophils (%) (Auto) 0.2, Basophils (%) (Auto) 0.1, Neutrophils # (Auto) 7.31, Lymphocytes # (Auto) 1.47, Monocytes # (Auto) 0.57, Eosinophils # (Auto) 0.02, Basophils # (Auto) 0.01 05/10/17 11:38 Test 05/10/17 11:38 05/10/17 12:53 White Blood Count 9.40 K/uL (4.8-10.8) Red Blood Count 4.97 M/uL (4.7-6.1) Hemoglobin 15.4 g/dL (14.0-18.0) Hematocrit 44.4 % (42-52) Mean Corpuscular Volume 89.3 fL (80-100) Mean Corpuscular Hemoglobin 31.0 pg (25-34) Mean Corpuscular Hemoglobin Concent 34.7 g/dl (32-36) Platelet Count 165 K/uL (130-400) Mean Platelet Volume 9.7 fL (7.4-10.4) Neutrophils (%) (Auto) 77.8 % Lymphocytes (%) (Auto) 15.6 % Monocytes (%) (Auto) 6.1 % Eosinophils (%) (Auto) 0.2 % Basophils (%) (Auto) 0.1 % Neutrophils # (Auto) 7.31 K/uL (1.4-6.5) Lymphocytes # (Auto) 1.47 K/uL (1.2-3.4) Monocytes # (Auto) 0.57 K/uL (0.11-0.59) Eosinophils # (Auto) 0.02 K/uL (0-0.5) Basophils # (Auto) 0.01 K/uL (0-0.2) RDW Standard Deviation 41.9 fL (36.4-46.3) RDW Coefficient of Variation 12.9 % (11.5-14.5) Immature Granulocyte % (Auto) 0.2 % Immature Granulocyte # (Auto) 0.02 K/uL (0.00-0.02) Prothrombin Time 11.1 SECONDS (9.0-12.0) Prothromb Time International Ratio 1.0 (0.9-1.1) Activated Partial Thromboplast Time 23.4 SECONDS (21.0-31.0) Partial Thromboplastin Ratio 0.9 Anion Gap 9.0 mmol/L (3-11) Est Creatinine Clear Calc Drug Dose 86.6 ml/min Estimated GFR () 77.9 Estimated GFR (Non- 67.2 BUN/Creatinine Ratio 14.2 (10-20) Calcium Level 9.5 mg/dl (8.5-10.1) Magnesium Level 1.9 mg/dl (1.8-2.4) Total Bilirubin 0.7 mg/dl (0.2-1) Direct Bilirubin 0.1 mg/dl (0-0.2) Aspartate Amino Transf (AST/SGOT) 17 U/L (15-37) Alanine Aminotransferase (ALT/SGPT) 22 U/L (12-78) Alkaline Phosphatase 59 U/L (45-117) Total Creatine Kinase 112 U/L (39-308) Creatine Kinase MB 2.3 ng/ml (0.5-3.6) Creatine Kinase MB Ratio 2.1 (0-3.0) Troponin I < 0.015 ng/ml (0-0.045) Total Protein 7.8 gm/dl (6.4-8.2) Albumin 3.7 gm/dl (3.4-5.0) Lipase 259 U/L (73-393) Thyroid Stimulating Hormone (TSH) 1.050 uIu/ml (0.300-4.500) Urine Color YELLOW Urine Appearance CLEAR (CLEAR) Urine pH 5.0 (4.5-7.5) Urine Specific [place] 1.024 (1.000-1.030) Urine Protein TRACE (NEG) Urine Glucose (UA) 1+ (NEG) Urine Ketones TRACE (NEG) Urine Occult Blood NEG (NEG) Urine Nitrite NEG (NEG) Urine Bilirubin NEG (NEG) Urine Urobilinogen NEG (NEG) Urine Leukocyte Esterase NEG (NEG) Urine WBC (Auto) 1-5 /hpf (0-5) Urine RBC (Auto) 0-4 /hpf (0-4) Urine Hyaline Casts (Auto) 10-30 /lpf (0-5) Urine Epithelial Cells (Auto) >30 /lpf (0-5) Urine Bacteria (Auto) NEG (NEG) Laboratory results as stated above per my review. Medications Administered Medications (Trade) Dose Ordered Sig/Jhoan Route Start Time Stop Time Status Last Admin Dose Admin Sodium Chloride 1,000 ml @ 999 mls/hr Q1H1M STAT IV 05/10/17 11:55 05/10/17 12:55 DC 05/10/17 12:12 999 MLS/HR Meclizine HCl (Antivert Tab) 25 mg NOW STAT PO 05/10/17 11:55 05/10/17 11:56 DC 05/10/17 12:13 25 MG Ondansetron HCl (Zofran 8mg Iv) 8 mg NOW STAT IV 05/10/17 11:55 05/10/17 11:57 DC 05/10/17 12:13 8 MG Ketorolac Tromethamine (Toradol Inj) 30 mg NOW STAT IV 05/10/17 13:05 05/10/17 13:06 DC 05/10/17 13:11 30 MG ECG Indication: chest pain Rate (beats per minute): 56 Rhythm: sinus bradycardia Findings: no acute ischemic change, no ectopy ED Course 1152: Previous medical records were reviewed. The patient was evaluated in room B12B. A complete history and physical examination was performed. 1155: Ordered Zofran 8 mg IV, Antivert Tab 25 mg PO, Sodium Chloride 1000 ml @ 999 mls/hr IV. 1305: Ordered Toradol Inj 30 mg IV. 1405: On reevaluation, the patient is resting comfortably. I discussed the results and findings with the patient. He verbalized agreement of the treatment plan. He was discharged home. Medical Decision The differential was considered includes acute myocardial infarction, acute coronary syndrome, myocarditis, pericarditis, pericardial effusion/tamponade, esophageal perforation, thoracic aortic dissection, pulmonary embolism, pneumonia, pneumothorax, pancreatitis, shingles, acute cholecystitis, perforated abdominal viscus. Patient was found to have a slightly elevated blood pressure due to circumstances. I do not believe that the patient requires hypertension monitoring. Medication Reconciliation: I attest that I have personally reviewed the patient' s current medication list. This is a 71-year-old male who presents to the ED with a chief complaint of dizziness this morning. The patient states that he became dizzy and vomited. He states that he has had vertigo in the past. He has been evaluated this in the hospital previously. He states nothing was found. They told him it was viral related. His symptoms are worse with standing and certain movements. He also developed an episode of chest pain and left arm pain after his vomiting. I was about one hour ago. The symptoms now resolved. He developed a headache while he was here. His physical exam and neurologic exam was unremarkable. He did have an episode of vomiting during his ED stay which resulted in some bradycardia. This resolved after the vomiting episode. He did feel dizzy during this time. He has not had any additional arrhythmias or abnormal vital signs. His chest x-ray did not show acute disease. Complete metabolic panel was normal. Troponin was negative. EKG shows a normal sinus rhythm without ischemic changes. CBC is normal, CT scan of the brain was negative for acute disease. Urine did not show infection. The patient was treated with IV fluids , IV Zofran and by mouth meclizine. IV Toradol was given for the headache. He was told the results. On reassessment, he is feeling better. He is felt to be stable for discharge. He will return for recurrence or worsening. Impression Primary Impression: Vertigo Additional Impressions: Vomiting Chest pain, precordial Scribe Attestation The scribe's documentation has been prepared under my direction and personally reviewed by me in its entirety. I confirm that the note above accurately reflects all work, treatment, procedures, and medical decision making performed by me. Departure Information Dispostion Home / Self-Care Prescriptions Meclizine Hcl (MECLIZINE HCL) 25 Mg Tab 1 TAB PO TID Y for Dizziness or Vertigo for 10 Days, #30 TAB Prov: Roman Servin D.O. 05/10/17 Ondasetron Odt (ZOFRAN ODT) 4 Mg Tab 4 MG SL Q6H for Nausea, #15 TAB Prov: Roman Servin D.O. 05/10/17 Referrals Joseph Christie M.D. (PCP) Patient Instructions [facility] Additional Instructions Meclizine as needed for vertigo. Zofran: Allow one tablet to dissolve under the tongue every 6 hours as needed for nausea or vomiting. Follow-up with your doctor for further care and evaluation in 1-2 days. Return to the emergency department for worsening or new symptoms or any concerns. You have been examined and treated today on an emergency basis only. This is not a substitute for, or an effort to provide, complete comprehensive medical care. It is impossible to recognize and treat all injuries or illnesses in a single emergency department visit. It is therefore important that you follow up closely with your doctor. Call as soon as possible for an appointment. Problem Qualifiers
[2017-05-10 14:30] VITALS: BP 150/74; PULSE 56; O2SAT 94
== END 2017-05-10 14:45 | disposition home or self-care (01) ==
LOC: EDBD 11:42 → C.EDB 11:43
DX: R42 Dizziness and giddiness (principal); R11.10 Vomiting, unspecified; R07.2 Precordial pain; M79.602 Pain in left arm; R00.1 Bradycardia, unspecified; I10 Essential (primary) hypertension; N40.0 Benign prostatic hyperplasia without lower urinary tract symptoms; Z79.899 Other long term (current) drug therapy; Z82.49 Family history of ischemic heart disease and other diseases of the circulatory system; Z83.3 Family history of diabetes mellitus; Z84.1 Family history of disorders of kidney and ureter

== ENCOUNTER → 2018-06-05 | Outpatient (CLI) | payer OTHER ==
[~2018-06-05] MED LIST changes: -ANT25 PO; -ASCO500C43 PO; -FLX10 PO; -OMEG10007 PO
--- NOTE | 2018-06-05 09:48 | DIAGNOSTIC IMAGING REPORT ---
MRI THE RIGHT FOREFOOT NO CONTRAST CLINICAL HISTORY: Right foot pain localized the first and fifth digits. COMPARISON STUDY: No previous studies for comparison. FINDINGS: There is T1 and T2 edema involving the medial aspect of the tuft of the distal phalanx of the great toe. This is a nonspecific finding which can be seen in a fracture, infection, or neoplasm. Correlation with radiographs is recommended. There are no pathologic soft tissue masses. There are no findings to indicate a neuroma. There are mild osteoarthritic changes, most pronounced the level the first metatarsal phalangeal joint, and fifth metatarsal phalangeal joint. IMPRESSION: 1. Small focus of nonspecific edema involving the medial aspect of the tuft of the distal phalanx the great toe. This a nonspecific finding which can be seen in a fracture infection or neoplasm. Correlation with conventional radiographs is recommended. Electronically signed by: Jeffrey Gonzalez M.D. 06/05/2018 9:47 AM Dictated Date/Time: 06/05/2018 9:40 AM
== END | disposition home or self-care (01) ==
LOC: C.MRI 08:21
PROVIDERS: ATTEND Podiatrist Foot & Ankle Surgery
DX: M79.671 Pain in right foot (principal); R60.0 Localized edema

== ENCOUNTER 2019-02-27 16:54 | Inpatient (IN) ==
[2019-02-27] MEDS ORDERED: fentaNYL citrate 100 MCG/2 ML VIAL IV ONE (16:59)
[2019-02-27] MEDS: NITROGLYCERIN SL 0.4 MG/TAB TAB SL PRN ×4 (17:07→19:52)
[2019-02-27 17:08] LABS: Hematocrit (blood only) 43.4 % (42-52); Hemoglobin 15.4 g/dL (14.0-18.0); Mean Corpuscular Hgb Conc 35.5 g/dL (32-36); Mean Corpuscular Volume 88.9 fL (80-100); Mean Platelet Volume 9.5 fL (7.4-10.4); Platelet Count 207 K/uL (130-400); RDW Coefficient of Variation 12.8 % (11.5-14.5); Red Blood Count 4.88 M/uL (4.7-6.1); White Blood Count 8.77 K/uL (4.8-10.8)
[2019-02-27] MEDS ORDERED: HEPARIN SOD (PORCINE) 1000 UNIT/ML 10 ML VIAL ONE (17:08)
[2019-02-27] MEDS ORDERED: HEPARIN 25000 UNIT/500 ML D5W IV ONE (17:08)
[2019-02-27] MEDS ORDERED: Heparin IV Low Dose WITH Bolus IV STA (17:12)
--- NOTE | 2019-02-27 17:14 | XRay Report ---
XR chest 1V portable CLINICAL HISTORY: Chest Pain pain COMPARISON STUDY: 05/10/2017 FINDINGS: Mild cardia megaly. Diaphragms are smooth. Lungs are clear. IMPRESSION: Mild cardiomegaly. Otherwise negative study. The above report was generated using voice recognition software. It may contain grammatical, syntax or spelling errors. Electronically signed by: Jose Clarke M.D. 02/27/2019 5:13 PM
[2019-02-27 17:19] LABS: Partial Thromboplastin Ratio 0.9; Partial Thromboplastin Time 25.7 Seconds (21.0-31.0); Prothrombin Time 10.7 Seconds (9.0-12.0)
[2019-02-27] MEDS ORDERED: MIDAZOLAM HCL 1 MG/ML 2ML VIAL ONE ×2 (17:19→20:09)
[2019-02-27] MEDS ORDERED: NITROGLYCERIN/D5W 100MCG/ML 20ML SYR ONE (17:20)
[2019-02-27] MEDS ORDERED: NiCARDipine HCL INJ 2.5 MG/ML 10 ML AMP ONE (17:20)
[2019-02-27] MEDS ORDERED: HEPARIN (PORCINE) 1000 UNIT/ML 10 ML (CATH LAB USE ONLY) ONE (17:20)
[2019-02-27] MEDS ORDERED: fentaNYL citrate 100 MCG/2 ML VIAL ONE ×2 (17:20→20:09)
[2019-02-27] MEDS ORDERED: METOPROLOL TARTRATE 1 MG/ML VIAL IV STA (17:21)
[2019-02-27 17:22] LABS: Alanine Aminotransferase 24 U/L (12-78); Albumin Level 3.4 gm/dl (3.4-5.0); Aspartate Aminotransferase 20 U/L (15-37); BUN Creatinine Ratio 11.8 (10-20); Blood Urea Nitrogen 13 mg/dl (7-18); Calcium 8.9 mg/dl (8.5-10.1); Carbon Dioxide 24 mmol/L (21-32); Chloride 107 mmol/L (98-107); Creatinine Clr Calc Pharmacy 84.8 ml/min; Est GFR (African American) 76.8; Est GFR (Non-African American) 66.2; Glucose 147 mg/dl (70-99); Potassium 3.5 mmol/L (3.5-5.1); Sodium 140 mmol/L (136-145)
[2019-02-27 17:22] LABS: iSTAT Creatinine 0.9 mg/dl (0.6-1.3); iSTAT Ionized Calcium 1.14 mmol/l (1.12-1.32); iSTAT Potassium 3.6 mEq/L (3.3-5.0)
[2019-02-27 17:27] LABS: Albumin Globulin Ratio 0.8 (0.9-2); Alkaline Phosphatase 69 U/L (45-117); Bilirubin,Total 0.5 mg/dl (0.2-1); Globulin 4.4 gm/dl (2.5-4.0); Phosphorus 1.7 mg/dl (2.5-4.9); Total Protein 7.8 gm/dl (6.4-8.2); Troponin I < 0.015 ng/ml (0-0.045)
[2019-02-27 17:47] LABS: ALC (manual) 4.31 K/uL (1.2-3.4); Basophils # (manual) 0.16 K/uL (0-0.2); Basophils % (manual) 1.8 %; Eosinophils # (manual) 0.24 K/uL (0-0.5); Eosinophils % (manual) 2.7 %; Lymphocytes # (manual) 1.96 K/uL (1.2-3.4); Lymphocytes % (manual) 22.3 %; Monocytes # (manual) 0.55 K/uL (0.11-0.59); Monocytes % (manual) 6.3 %; Myelocytes # (manual) 0.08 K/uL (0-0); Myelocytes % (manual) 0.9 %; Neutrophils % (manual) 39.2 %; RBC Morphology Unremarkable; Reactive Lymphocytes # (manual) 2.35 K/uL
--- NOTE | 2019-02-27 18:05 | Emergency Department Note ---
Entered by Jose Lr acting as a scribe for History of Present Illness General Chief complaint: Heart Alert Stated complaint: heart alert Source: patient and EMS History of Present Illness Onset (ago): minute(s) 30 Location: chest Pain Consistency: + constant Maximum Pain Intensity: 8 Quality: + sharp Relieved By: + medication (Nitro - mild) Associated symptoms: no nausea/vomiting Treatments prior to arrival: aspirin The patient is a 73 y/o white male w/ PMHx HTN, obesity, BPH, left hip arthroplasty who presents to the ED w/ CC of constant, sharp, left-sided chest pain beginning 30 minutes ago. 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 His symptoms do not radiate from the left side. He reports his symptoms have not waned with 2 full dose aspirins. EMS notes the patient was given a spray of intro in route without much relief. The patient notes his father of an abscess on his heart that burst. He states he takes prostate medication. The patient denies nausea and vomiting, taking other medication, alcohol use, and a history of smoking. Home Medications Home Medications Medication Instructions Recorded Confirmed Type tamsulosin 0.4 mg PO DAILY 02/27/19 02/27/19 History Allergies Allergy/AdvReac Type Severity Reaction Status Date / Time levofloxacin Allergy Unknown HIVES Verified 02/27/19 17:26 Past Med/Surg History Medical History Hypertension (Chronic) Obesity (Chronic) BPH (benign prostatic hypertrophy) (Chronic) Surgical History H/O cataract removal with insertion of prosthetic lens (Resolved) History of total left hip arthroplasty (Resolved) "2012; Dr. Hines" Family History Other Heart disease Social History Feels Safe at Home: Yes Smoking Status: Never smoker Review of Systems See HPI for pertinent positives & negatives. and A total of 10 systems reviewed and were otherwise negative Physical Exam Vital Signs Vital Signs - 24 hr 02/27/19 16:59 02/27/19 17:04 02/27/19 17:23 Temperature 36.7 C Temperature Source Oral Sepsis Recent Fever Within 48 Hours No Sepsis New/Unexplained Change in Mental Status No Sepsis Action Taken by Nursing No Action Required Pulse Rate 69 Pulse Rate [Right Finger] 100 H Respiratory Rate 18 18 Respiratory Effort / Characteristics Non-Labored Respiratory Depth Normal Respiratory Pattern Regular Blood Pressure 209/108 H Blood Pressure [Right Arm] 167/79 H Blood Pressure Mean 141 Blood Pressure Mean [Right Arm] 108 Blood Pressure Position Sitting Pulse Oximetry 98 98 98 Oxygen Delivery Method Room Air Room Air Nasal Cannula Oxygen Flow Rate 2 02/27/19 17:30 Temperature Temperature Source Sepsis Recent Fever Within 48 Hours Sepsis New/Unexplained Change in Mental Status Sepsis Action Taken by Nursing Pulse Rate 100 H Pulse Rate [Right Finger] Respiratory Rate Respiratory Effort / Characteristics Respiratory Depth Respiratory Pattern Blood Pressure 167/79 H Blood Pressure [Right Arm] Blood Pressure Mean Blood Pressure Mean [Right Arm] Blood Pressure Position Pulse Oximetry Oxygen Delivery Method Oxygen Flow Rate GENERAL: Non-toxic in appearance. EYE EXAM: Normal conjunctiva. PERRL, no anisocoria and EOM's grossly intact w/o pain. OROPHARYNX: Moist mucus membranes. Grossly normal dentition. NECK: Supple, no nuchal rigidity, no adenopathy, non-tender. no signs of meningismus. LUNGS: Clear to auscultation. Normal chest wall mechanics. HEART: NSR, no MRG. ABDOMEN: Abdomen soft, non-tender, normo-active bowel sounds, no masses, no rebound or guarding. BACK: No CVA TTP. SKIN: No rashes and no bruising. UPPER EXTREMITIES: Upper extremities are grossly normal. LOWER EXTREMITIES: No pitting edema. No calf pain. NEURO EXAM: Cranial nerves II-XII grossly intact, normal speech, moves all 4 extremities on command w/o issue. Course 1653: The patient was evaluated in room B01. A complete history and physical exam was performed. 1706: I reevaluated the patient and updated the family at the bedside. 1720: Discussed the patient's case with Dr. Morris, Cardiology at the bedside. He is requesting I give the patient 5mg of Lopressor. 172: Discussed the patient's case with Minna Chauhan PA-C, [facility] Hospitalist (attending - Dr. Walls). The patient will be evaluated for further management. Administered Medications Nitroglycerin (Nitrostat) 0.4 mg SL UD PRN PRN Reason: Chest Pain Stop: 03/29/19 16:58 Last Admin: 02/27/19 17:07 Dose: 0.4 mg Documented by: [id number] Discontinued Medications Fentanyl Citrate (Fentanyl Citrate) 50 mcg IV NOW ONE Stop: 02/27/19 17:00 Last Admin: 02/27/19 17:07 Dose: 50 mcg Documented by: [id number] Metoprolol Tartrate (Lopressor) 5 mg IV NOW STA Stop: 02/27/19 17:22 Last Admin: 02/27/19 17:30 Dose: 5 mg Documented by: [id number] Medical Decision Making Medical Records Attestation: I reviewed the patient's medical records. Home Medications Current Medication List: was personally reviewed by me Laboratory Data Attestation: I reviewed the patient's lab results. Result diagrams: 02/27/19 16:39 02/27/19 16:39 Lab Results 02/27/19 02/27/19 02/27/19 Range/Units 16:39 16:39 16:39 WBC 8.77 (4.8-10.8) K/uL RBC 4.88 (4.7-6.1) M/uL Hgb 15.4 (14.0-18.0) g/dL POC Hgb (14.0-18.0) g/dl Hct 43.4 (42-52) % POC Hct (42-52) % MCV 88.9 (80-100) fL MCH 31.6 (25-34) pg MCHC 35.5 (32-36) g/dL RDW Std Deviation 42.0 (36.4-46.3) fL RDW Coeff of Mariam 12.8 (11.5-14.5) % Plt Count 207 (130-400) K/uL MPV 9.5 (7.4-10.4) fL Neutrophils % (Manual) 39.2 % Lymphocytes % (Manual) 22.3 % Reactive Lymphs % (Man) 26.8 % Monocytes % (Manual) 6.3 % Eosinophils % (Manual) 2.7 % Basophils % (Manual) 1.8 % Myelocytes % (Man) 0.9 % Neutrophils # (Manual) 3.44 (1.4-6.5) K/uL Total Absolute Neuts 3.44 (1.4-6.5) K/uL Lymphocytes # (Manual) 1.96 (1.2-3.4) K/uL Reactive Lymphs # 2.35 K/uL Total Abs Lymphocytes 4.31 H (1.2-3.4) K/uL Monocytes # (Manual) 0.55 (0.11-0.59) K/uL Eosinophils # (Manual) 0.24 (0-0.5) K/uL Basophils # (Manual) 0.16 (0-0.2) K/uL Myelocytes # (Manual) 0.08 H (0-0) K/uL RBC Morphology Unremarkable PT 10.7 (9.0-12.0) Seconds INR 1.0 (0.9-1.1) APTT 25.7 (21.0-31.0) Seconds PTT Ratio 0.9 POC Sodium (135-144) mEq/L Sodium 140 (136-145) mmol/L POC Potassium (3.3-5.0) mEq/L Potassium 3.5 (3.5-5.1) mmol/L POC Chloride (101-112) mEq/L Chloride 107 (98-107) mmol/L Carbon Dioxide 24 (21-32) mmol/L POC Total CO2 (24-31) mEq/l Anion Gap 9.0 (3-11) POC Anion Gap (16-25) mmol/L POC BUN (7-18) mg/dl BUN 13 (7-18) mg/dl Creatinine 1.10 (0.6-1.4) mg/dl POC Creatinine (0.6-1.3) mg/dl Est Cr Clr Drug Dosing 84.8 ml/min Est GFR ( Amer) 76.8 Est GFR (Non-Af Amer) 66.2 BUN/Creatinine Ratio 11.8 (10-20) Glucose 147 H (70-99) mg/dl POC Glucose (other) (70-99) mg/dl Calcium 8.9 (8.5-10.1) mg/dl POC Ioniz Calcium Colleen (1.12-1.32) mmol/l Phosphorus 1.7 L (2.5-4.9) mg/dl Magnesium 2.0 (1.8-2.4) mg/dl Total Bilirubin 0.5 (0.2-1) mg/dl AST 20 (15-37) U/L ALT 24 (12-78) U/L Alkaline Phosphatase 69 (45-117) U/L POC Troponin I (0-0.045) ng/ml Troponin I < 0.015 (0-0.045) ng/ml Total Protein 7.8 (6.4-8.2) gm/dl Albumin 3.4 (3.4-5.0) gm/dl Globulin 4.4 H (2.5-4.0) gm/dl Albumin/Globulin Ratio 0.8 L (0.9-2) Lipase 122 (73-393) U/L 02/27/19 02/27/19 Range/Units 17:02 17:07 WBC (4.8-10.8) K/uL RBC (4.7-6.1) M/uL Hgb (14.0-18.0) g/dL POC Hgb 15.0 (14.0-18.0) g/dl Hct (42-52) % POC Hct 44 (42-52) % MCV (80-100) fL MCH (25-34) pg MCHC (32-36) g/dL RDW Std Deviation (36.4-46.3) fL RDW Coeff of Mariam (11.5-14.5) % Plt Count (130-400) K/uL MPV (7.4-10.4) fL Neutrophils % (Manual) % Lymphocytes % (Manual) % Reactive Lymphs % (Man) % Monocytes % (Manual) % Eosinophils % (Manual) % Basophils % (Manual) % Myelocytes % (Man) % Neutrophils # (Manual) (1.4-6.5) K/uL Total Absolute Neuts (1.4-6.5) K/uL Lymphocytes # (Manual) (1.2-3.4) K/uL Reactive Lymphs # K/uL Total Abs Lymphocytes (1.2-3.4) K/uL Monocytes # (Manual) (0.11-0.59) K/uL Eosinophils # (Manual) (0-0.5) K/uL Basophils # (Manual) (0-0.2) K/uL Myelocytes # (Manual) (0-0) K/uL RBC Morphology PT (9.0-12.0) Seconds INR (0.9-1.1) APTT (21.0-31.0) Seconds PTT Ratio POC Sodium 141 (135-144) mEq/L Sodium (136-145) mmol/L POC Potassium 3.6 (3.3-5.0) mEq/L Potassium (3.5-5.1) mmol/L POC Chloride 105 (101-112) mEq/L Chloride (98-107) mmol/L Carbon Dioxide (21-32) mmol/L POC Total CO2 24 (24-31) mEq/l Anion Gap (3-11) POC Anion Gap 17.0 (16-25) mmol/L POC BUN 14 (7-18) mg/dl BUN (7-18) mg/dl Creatinine (0.6-1.4) mg/dl POC Creatinine 0.9 (0.6-1.3) mg/dl Est Cr Clr Drug Dosing ml/min Est GFR ( Amer) Est GFR (Non-Af Amer) BUN/Creatinine Ratio (10-20) Glucose (70-99) mg/dl POC Glucose (other) 178 H (70-99) mg/dl Calcium (8.5-10.1) mg/dl POC Ioniz Calcium Colleen 1.14 (1.12-1.32) mmol/l Phosphorus (2.5-4.9) mg/dl Magnesium (1.8-2.4) mg/dl Total Bilirubin (0.2-1) mg/dl AST (15-37) U/L ALT (12-78) U/L Alkaline Phosphatase (45-117) U/L POC Troponin I < 0.03 (0-0.045) ng/ml Troponin I (0-0.045) ng/ml Total Protein (6.4-8.2) gm/dl Albumin (3.4-5.0) gm/dl Globulin (2.5-4.0) gm/dl Albumin/Globulin Ratio (0.9-2) Lipase (73-393) U/L Imaging Data Radiologist's Impression: Radiology results as stated below per my review and the radiologist's interpretation: XR chest 1V portable CLINICAL HISTORY: Chest Pain pain COMPARISON STUDY: 05/10/2017 FINDINGS: Mild cardia megaly. Diaphragms are smooth. Lungs are clear. IMPRESSION: Mild cardiomegaly. Otherwise negative study. The above report was generated using voice recognition software. It may contain grammatical, syntax or spelling errors. Electronically signed by: Jose Clarke M.D. 02/27/2019 5:13 PM ECG Data Attestation: I personally reviewed and interpreted this ECG as follows: Indication: chest pain Rate (beats per minute): 69 Rhythm: sinus rhythm Findings: + other (Wide QRS, concordant elevation in V2 and V3, concerning for STEMI), + RBBB and + T-wave inversion (lead III) Blood Pressure Blood Pressure Findings: Elevated blood pressure Blood Pressure Disposition: further management by hospitalist MDM Narrative The patient is a 73 y/o white male w/ PMHx HTN, obesity, BPH, left hip arthroplasty who presents to the ED w/ CC of constant, sharp, left-sided chest pain beginning 30 minutes ago. Differential diagnoses includes but is not limited to acute coronary syndrome, myocardial infarction, pericarditis, pulmonary embolus, aortic dissection, pneumonia, pneumothorax, musculoskeletal, shingles, esophageal. Patient was seen and evaluated bedside. The patient reportedly had onset acute left-sided chest pain. Describes it as pressure radiates to the left upper extremity. Had some mild nausea but no vomiting no diaphoresis. The patient denies any known medical problems with the exception of BPH for which he takes tamsulosin. Patient does have a listed history of hypertension but does not take any other medications. The patient to take 2 full dose aspirin prior to arrival. The patient was given nitro in route which somewhat ameliorated his pain. A heart alert had been called prehospital. I did order additional blood work E KG troponin chest x-ray. The patient does appear to have an anterior OK as he has concordant elevation in V2 and V3. Patient was seen and evaluated by the surgical assistant certified to consider the patient taken to the catheterization lab. I did speak the on-call hospitalist who agreed to further evaluate for the patient. Patient was admitted to medicine service. Impression & Plan ST elevation (STEMI) myocardial infarction, HTN (hypertension), Chest pain Critical Care Time I have personally spent 30 minutes of critical care time in the direct management of this patient. This includes bedside care, interpretation of diagnostic studies, and testing, discussion with consultants, patient, and family members, and other required patient management activities. This 30 minutes is in excess of all separately billable procedures. Critical Care Time: Yes Total Critical Care Time: 30 Discharge Plan Visit Data *Final* Discharge Date/Time: 02/27/19 17:45 Chief Complaint: Heart Alert Stated Complaint: heart alert ED Provider: Maxi Dallas Discharge Problem: ST elevation (STEMI) myocardial infarction, HTN (hypertension), Chest pain Patient Disposition: Still a Patient Discharge Instructions Interventions: ED Discharge Assessment Last Done: 02/27/19 17:33 Discharge Problem: ST elevation (STEMI) myocardial infarction Qualifiers: Involved coronary artery: LAD coronary artery Qualified Code(s): I21.02 - ST elevation (STEMI) myocardial infarction involving left anterior descending coronary artery HTN (hypertension) Qualifiers: Hypertension type: unspecified Qualified Code(s): I10 - Essential (primary) hypertension Chest pain Qualifiers: Chest pain type: chest pain due to myocardial ischemia Ischemic chest pain type: unspecified angina pectoris type Qualified Code(s): I25.9 - Chronic ischemic heart disease, unspecified The scribe's documentation has been prepared under my direction and personally reviewed by me in its entirety. I confirm that the note above accurately reflects all work, treatment, procedures, and medical decision making performed by me.
[2019-02-27] MEDS ORDERED: ICU PROTOCOL FOR HYPERGLYCEMIA PRN (18:42)
[2019-02-27] MEDS ORDERED: TICAGRELOR 90 MG TAB PO ONE (18:47)
[2019-02-27] MEDS ORDERED: ACETAMINOPHEN 325 MG TAB PO PRN (18:57)
[2019-02-27] MEDS ORDERED: SODIUM CHLORIDE 0.9% 1000ML 1,000 ML IV SCH (19:00)
[2019-02-27] MEDS ORDERED: ATROPINE SULFATE 0.1 MG/ML 10ML SYR IV ONE (19:19)
[2019-02-27] MEDS ORDERED: ATROPINE SULFATE 0.1 MG/ML 10ML SYR IV STA (19:39)
[2019-02-27] MEDS ORDERED: POTASSIUM CHLORIDE 10 MEQ TABCR PO ONE (19:45)
[2019-02-27] MEDS ORDERED: MoRPHine SULFATE 4 MG/ML 1 ML CARP\\VIAL IV PRN (19:49)
[2019-02-27] MEDS ORDERED: TRAMADOL HCL 50 MG TABLET PO PRN (19:49)
[2019-02-27] MEDS ORDERED: PROMETHAZINE HCL 12.5 MG in SODIUM CHLORIDE 0.9% 50 ML IV PRN (19:49)
[2019-02-27 19:50] LABS: Basophils # (auto) 0.02 K/uL (0-0.2); Basophils % (auto) 0.2 %; Eosinophils # (auto) 0.03 K/uL (0-0.5); Eosinophils % (auto) 0.3 %; Hematocrit (blood only) 40.6 % (42-52); Hemoglobin 14.3 g/dL (14.0-18.0); Immature Granulocytes # (auto) 0.04 K/uL (0.00-0.02); Immature Granulocytes % (auto) 0.3 %; Lymphocytes % (auto) 11.1 %; Mean Corpuscular Hgb Conc 35.2 g/dL (32-36); Mean Corpuscular Volume 89.6 fL (80-100); Mean Platelet Volume 9.6 fL (7.4-10.4); Monocytes # (auto) 0.65 K/uL (0.11-0.59); Monocytes % (auto) 5.5 %; Neutrophils # (auto) 9.69 K/uL (1.4-6.5); Neutrophils % (auto) 82.6 %; Platelet Count 183 K/uL (130-400); RDW Coefficient of Variation 12.9 % (11.5-14.5); RDW Standard Deviation 42.3 fL (36.4-46.3); Red Blood Count 4.53 M/uL (4.7-6.1); White Blood Count 11.73 K/uL (4.8-10.8)
--- NOTE | 2019-02-27 19:50 | History & Physical Report ---
Date of Service February 27, 2019 Assessment & Plan (1) ST elevation (STEMI) myocardial infarction: CAD sp PCI Patient still complaining of chest pain postprocedure. Symptomatic bradycardia Hypertension, slightly elevated prediabetes as per records ICU monitoring Management of cardiac issues as per tutorial laboratory supervisor. Check TSH, lipid profile, hemoglobin A1c DVT prophylaxis. Lovenox subcu if Full code History of Present Illness Chief Complaint: Chest pain Primary Care Provider: Joseph Christie MD History obtained from patient, family, and records. Medical history significant for hypertension, BPH, arthritis, prediabetes as per records. Recent confinement November 2016 headache, dizziness symptoms. Patient was mowing his lawn this afternoon when he experienced sharp left-sided chest pain with some radiation to the neck. No shortness of breath, no cough symptoms. Incomplete relief of pain with aspirin and nitroglycerin by EMS en route to the hospital. ST elevation noted on the anterior leads on EKG. Heart alert called upon arrival at the ER. Patient underwent emergent cardiac catheterization and PCI. Hypotension and bradycardia status post atropine administration as per ONLINE PROJECT MANAGER. Patient currently at ICU still complaining of chest pain. 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 Hines" Family History Other Heart disease Social History Preferred Language: [place]ian Communication Ability: Effective Perennial House Manager Required: No Beliefs That Will Affect Care: None Current Living Situation: Spouse Other Information That Helps Us Care for You: No Feels Safe at Home: Yes Safety Concerns: Feels Safe At This Time Smoking Status: Never smoker Hx Alcohol Use: No Hx Substance Use: No Review of Systems Review of Systems: As per HPI, all 10 systems reviewed, all other ROS negative Physical Exam Physical Exam: GENERAL: Slightly anxious, obese , no respiratory distress SKIN: Normal color, warm HEENT: [place] palpebral conjunctivae, no ptosis, dry buccal mucosa NECK : Supple, short neck, no tenderness CHEST : CTA, no tenderness HEART : RRR, no obvious murmurs ABDOMEN: distention, nontender EXTREMITIES : Minimal LE swelling, no tenderness, no other conspicuous deformities noted NEUROLOGIC : Coherent, no facial asymmetry, no other gross focality Results & Data Vital Signs (Past 12 Hours) Vital Signs Temp Pulse Pulse Resp BP BP Pulse Ox 02/27/19 17:30 100 H 167/79 H 02/27/19 17:23 100 H 18 167/79 H 98 02/27/19 17:04 98 02/27/19 16:59 36.7 C 69 18 209/108 H 98 Laboratory Results Laboratory Results WBC 8.77 K/uL (4.8-10.8) 02/27/19 16:39 RBC 4.88 M/uL (4.7-6.1) 02/27/19 16:39 Hgb 15.4 g/dL (14.0-18.0) 02/27/19 16:39 POC Hgb 15.0 g/dl (14.0-18.0) 02/27/19 17:07 Hct 43.4 % (42-52) 02/27/19 16:39 POC Hct 44 % (42-52) 02/27/19 17:07 MCV 88.9 fL (80-100) 02/27/19 16:39 MCH 31.6 pg (25-34) 02/27/19 16:39 MCHC 35.5 g/dL (32-36) 02/27/19 16:39 RDW Std Deviation 42.0 fL (36.4-46.3) 02/27/19 16:39 RDW Coeff of Mariam 12.8 % (11.5-14.5) 02/27/19 16:39 Plt Count 207 K/uL (130-400) 02/27/19 16:39 MPV 9.5 fL (7.4-10.4) 02/27/19 16:39 Neutrophils % (Manual) 39.2 % 02/27/19 16:39 Lymphocytes % (Manual) 22.3 % 02/27/19 16:39 Reactive Lymphs % (Man) 26.8 % 02/27/19 16:39 Monocytes % (Manual) 6.3 % 02/27/19 16:39 Eosinophils % (Manual) 2.7 % 02/27/19 16:39 Basophils % (Manual) 1.8 % 02/27/19 16:39 Myelocytes % (Man) 0.9 % 02/27/19 16:39 Neutrophils # (Manual) 3.44 K/uL (1.4-6.5) 02/27/19 16:39 Total Absolute Neuts 3.44 K/uL (1.4-6.5) 02/27/19 16:39 Lymphocytes # (Manual) 1.96 K/uL (1.2-3.4) 02/27/19 16:39 Reactive Lymphs # 2.35 K/uL 02/27/19 16:39 Total Abs Lymphocytes 4.31 K/uL (1.2-3.4) H 02/27/19 16:39 Monocytes # (Manual) 0.55 K/uL (0.11-0.59) 02/27/19 16:39 Eosinophils # (Manual) 0.24 K/uL (0-0.5) 02/27/19 16:39 Basophils # (Manual) 0.16 K/uL (0-0.2) 02/27/19 16:39 Myelocytes # (Manual) 0.08 K/uL (0-0) H 02/27/19 16:39 RBC Morphology Unremarkable 02/27/19 16:39 PT 10.7 Seconds (9.0-12.0) 02/27/19 16:39 INR 1.0 (0.9-1.1) 02/27/19 16:39 APTT 25.7 Seconds (21.0-31.0) 02/27/19 16:39 PTT Ratio 0.9 02/27/19 16:39 Activ Coag Time Kaolin 175 SECONDS (94-140) H 02/27/19 17:38 POC Sodium 141 mEq/L (135-144) 02/27/19 17:07 Sodium 140 mmol/L (136-145) 02/27/19 16:39 POC Potassium 3.6 mEq/L (3.3-5.0) 02/27/19 17:07 Potassium 3.5 mmol/L (3.5-5.1) 02/27/19 16:39 POC Chloride 105 mEq/L (101-112) 02/27/19 17:07 Chloride 107 mmol/L (98-107) 02/27/19 16:39 Carbon Dioxide 24 mmol/L (21-32) 02/27/19 16:39 POC Total CO2 24 mEq/l (24-31) 02/27/19 17:07 Anion Gap 9.0 (3-11) 02/27/19 16:39 POC Anion Gap 17.0 mmol/L (16-25) 02/27/19 17:07 POC BUN 14 mg/dl (7-18) 02/27/19 17:07 BUN 13 mg/dl (7-18) 02/27/19 16:39 Creatinine 1.10 mg/dl (0.6-1.4) 02/27/19 16:39 POC Creatinine 0.9 mg/dl (0.6-1.3) 02/27/19 17:07 Est Cr Clr Drug Dosing 84.8 ml/min 02/27/19 16:39 Est GFR ( Amer) 76.8 02/27/19 16:39 Est GFR (Non-Af Amer) 66.2 02/27/19 16:39 BUN/Creatinine Ratio 11.8 (10-20) 02/27/19 16:39 Glucose 147 mg/dl (70-99) H 02/27/19 16:39 POC Glucose (other) 178 mg/dl (70-99) H 02/27/19 17:07 Calcium 8.9 mg/dl (8.5-10.1) 02/27/19 16:39 POC Ioniz Calcium Colleen 1.14 mmol/l (1.12-1.32) 02/27/19 17:07 Phosphorus 1.7 mg/dl (2.5-4.9) L 02/27/19 16:39 Magnesium 2.0 mg/dl (1.8-2.4) 02/27/19 16:39 Total Bilirubin 0.5 mg/dl (0.2-1) 02/27/19 16:39 AST 20 U/L (15-37) 02/27/19 16:39 ALT 24 U/L (12-78) 02/27/19 16:39 Alkaline Phosphatase 69 U/L (45-117) 02/27/19 16:39 POC Troponin I < 0.03 ng/ml (0-0.045) 02/27/19 17:02 Troponin I < 0.015 ng/ml (0-0.045) 02/27/19 16:39 Total Protein 7.8 gm/dl (6.4-8.2) 02/27/19 16:39 Albumin 3.4 gm/dl (3.4-5.0) 02/27/19 16:39 Globulin 4.4 gm/dl (2.5-4.0) H 02/27/19 16:39 Albumin/Globulin Ratio 0.8 (0.9-2) L 02/27/19 16:39 Lipase 122 U/L (73-393) 02/27/19 16:39 Diagnostic Findings Chest x-ray showed mild cardiomegaly EKG as per my interpretation :Rate 70, NSR, LAD, LAFB, RBBB, ST elevation anterior leads, PVCs (1) ST elevation (STEMI) myocardial infarction Involved coronary artery: LAD coronary artery Qualified Code(s): I21.02 - ST elevation (STEMI) myocardial infarction involving left anterior descending coronary artery
[2019-02-27] MEDS ORDERED: FUROSEMIDE 40 MG/4 ML VIAL IV STA (20:46)
[2019-02-27] MEDS ORDERED: LIDOCAINE IV BOLUS & DRIP IV STA (20:59)
[2019-02-27] MEDS ORDERED: SODIUM CHLOR 0.45% + 20MEQ KCL 20 MEQ/1,000 ML BAG IV SCH (21:00)
[2019-02-27] MEDS ORDERED: TICAGRELOR 90 MG TAB PO SCH (21:00)
[2019-02-27] MEDS ORDERED: METOPROLOL TARTRATE 25 MG TAB PO SCH (21:00)
[2019-02-27] MEDS ORDERED: LIDOCAINE/D5W DRIP 4MG/ML 2,000 MG/500 ML BAG IV SCH (21:05)
--- NOTE | 2019-02-27 21:46 | XRay Report ---
XR chest 1V portable CLINICAL HISTORY: Pacer wire placement R/O pneumothorax COMPARISON STUDY: 02/27/2019 5:03 PM FINDINGS: Temporary cardiac pacemaker placed. Lead is in good position. No evidence for pneumothorax. IMPRESSION: Temporary cardiac pacemaker placed. Good position. No evidence for pneumothorax. The above report was generated using voice recognition software. It may contain grammatical, syntax or spelling errors. Electronically signed by: Jose Clarke M.D. 02/27/2019 9:44 PM
[2019-02-27] MEDS: TAMSULOSIN HCL 0.4 MG CAP PO SCH (22:14)
[2019-02-28] MEDS: LISINOPRIL 5 MG TAB PO SCH (00:47)
[2019-02-28] MEDS ORDERED: GLUCOSE 40% GEL 15 GM TUBE PO PRN (04:31)
[2019-02-28] MEDS ORDERED: CARBOHYDRATES FOR HYPOGLYCEMIA PO PRN (04:31)
[2019-02-28] MEDS ORDERED: GLUCOSE 10 TABS/TUBE PO PRN (04:31)
[2019-02-28] MEDS ORDERED: DEXTROSE 50% 50 ML SYRINGE IV PRN (04:31)
[2019-02-28] MEDS ORDERED: GLUCAGON FOR INJ 1 MG VIAL SQ PRN (04:31)
[2019-02-28] MEDS: INSULIN ASPART 100 UNITS/ML 3 ML PEN SC SCH ×4 (04:53→20:55)
[2019-02-28] MEDS: ASPIRIN 81 MG ECTAB PO SCH (07:26)
[2019-02-28] MEDS: TICAGRELOR 90 MG TAB PO SCH ×2 (07:26→20:51)
[2019-02-28] MEDS: TAMSULOSIN HCL 0.4 MG CAP PO SCH (07:26)
[2019-02-28] MEDS: ENOXAPARIN INJ 40 MG/0.4 ML SYR SQ SCH (07:27)
[2019-02-28] MEDS ORDERED: ATORVASTATIN 40 MG TAB PO SCH (09:00)
[2019-02-28] MEDS ORDERED: LISINOPRIL 5 MG TAB PO SCH (09:00)
--- NOTE | 2019-02-28 09:13 | Cardiology Consultation ---
Date of Consultation February 28, 2019 Assessment & Plan (1) ST elevation (STEMI) myocardial infarction: The patient is clinically stable after his stent placement. Overnight he has had normal sinus rhythm and no episodes of bradycardia or heart block. No ventricular ectopy. At this point I will discontinue his lidocaine. Also, we will start him on a beta-jackie to see his response prior to discontinuing the pacemaker. An echocardiogram is pending. Serial troponins are ordered. I will increase his atorvastatin from 40 to 80 mg daily. (2) Hypertension: He is on a low dose of an SHAHZAD inhibitor. In this setting I think he would benefit from a beta-jackie and as mentioned, start before we discontinue his temporary pacemaker. If he remains hypertensive after starting the beta-jackie then we will titrate his SHAHZAD inhibitor. (3) Obesity: He should be evaluated as an outpatient for sleep apnea (4) Diabetes: He states that he is a borderline diabetic. We will obtain hemoglobin A1c. History of Present Illness Attending Physician: Hayden Barajas MD History of Present Illness This is a 73-year-old phase 0 diabetic and hypertension who presented with a STEMI. Patient states that late yesterday afternoon he was cutting his grass and developed chest pain. He immediately presented to the emergency department and was taken directly to the cardiac catheterization lab receiving coronary stent within the LAD. Post procedure he had some episodes of heart block and bradycardia along with ventricular ectopy. He was taken back to the [facility] where he received a temporary pacemaker. He was also placed on lidocaine. The patient stabilized through the night. He is currently on room air. He is alert and oriented and denies chest pain or shortness of breath. He has been in a sinus rhythm through most of the night. Allergies Allergy/AdvReac Type Severity Reaction Status Date / Time levofloxacin Allergy Intermediate HIVES Verified 02/27/19 19:13 Home Medications Home Medications Medication Instructions Recorded Confirmed Type tamsulosin 0.4 mg PO DAILY 02/27/19 02/27/19 History Patient History Medical History Hypertension (Chronic) Obesity (Chronic) BPH (benign prostatic hypertrophy) (Chronic) Surgical History H/O cataract removal with insertion of prosthetic lens (Chronic) History of total left hip arthroplasty (Chronic) "2012; Dr. 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 He is a large man and most likely predisposed to sleep apnea. Physical Exam Physical Exam: General: no acute distress and stated age Head: normocephalic, no masses, lesions, tenderness or abnormalities Eyes: conjunctiva are pink and non-injected, sclera clear Neck: supple, no adenopathy, no bruits, normal jugular venous pulse, no hepatojugular reflux Chest: normal shape and normal respiratory effort Lungs: clear to auscultation and percussion Cardiac Exam: - regular rate & rhythm, no murmurs gallops or rubs - normal S1, normal S2 Pulses: 2(+) throughout Abdomen: abdomen soft, non-tender, no abnormal masses and no hepatosplenomegaly Musculoskeletal: no gait disturbance, no joint inflammation, no deforming arthritis Extremities: no edema and no cyanosis Neuro: grossly normal exam Results & Data Vital Signs (Past 12 Hours) Vital Signs Temp Pulse Resp BP Pulse Ox 02/28/19 08:01 36.4 C L 65 20 169/77 H 92 02/28/19 08:00 65 20 92 02/28/19 07:31 78 14 166/77 H 93 02/28/19 07:30 68 17 92 02/28/19 07:28 74 14 123/78 93 02/28/19 07:01 64 16 123/78 91 02/28/19 07:00 63 19 93 02/28/19 06:31 66 18 171/76 H 95 02/28/19 06:30 64 18 94 02/28/19 06:02 66 18 97 02/28/19 06:01 67 25 H 164/73 H 97 02/28/19 06:00 83 16 94 04/28/19 05:31 65 19 167/73 H 98 02/28/19 05:01 66 20 159/73 H 93 02/28/19 05:00 64 18 96 02/28/19 04:30 63 17 164/75 H 97 02/28/19 04:01 65 19 158/71 H 94 02/28/19 04:00 70 18 93 02/28/19 03:32 61 20 97 02/28/19 03:31 64 18 176/71 H 97 02/28/19 03:30 68 18 97 02/28/19 03:15 63 18 96 02/28/19 03:09 63 20 186/75 H 98 02/28/19 03:01 66 20 209/84 H 95 02/28/19 03:00 70 19 97 02/28/19 02:45 64 18 94 02/28/19 02:31 68 22 203/64 H 92 02/28/19 02:30 65 16 94 02/28/19 02:15 63 18 96 02/28/19 02:01 63 19 176/71 H 97 02/28/19 02:00 72 23 98 02/28/19 01:45 67 17 97 02/28/19 01:31 63 16 195/80 H 97 02/28/19 01:30 65 18 96 02/28/19 01:15 67 18 96 02/28/19 01:01 67 18 188/78 H 96 02/28/19 01:00 71 19 95 02/28/19 00:45 66 19 95 02/28/19 00:32 68 16 96 02/28/19 00:31 66 24 213/91 H 97 02/28/19 00:30 71 21 97 02/28/19 00:08 70 24 97 02/28/19 00:01 70 21 197/89 H 96 02/28/19 00:00 71 19 97 02/27/19 23:31 71 24 187/89 H 95 02/27/19 23:30 69 21 96 02/27/19 23:01 66 14 182/88 H 96 02/27/19 22:46 66 15 169/78 H 97 02/27/19 22:31 68 18 132/80 95 02/27/19 22:15 67 27 H 160/97 H 95 02/27/19 22:01 78 14 154/61 H 97 02/27/19 21:45 70 26 H 169/76 H 95 02/27/19 21:31 74 22 154/85 H 97 02/27/19 21:15 78 19 141/76 H 95 02/27/19 21:08 80 17 148/70 H 92 Laboratory Results Laboratory Results - last 24 hr 02/27/19 02/27/19 02/27/19 16:39 16:39 16:39 WBC 8.77 RBC 4.88 Hgb 15.4 POC Hgb Hct 43.4 POC Hct MCV 88.9 MCH 31.6 MCHC 35.5 RDW Std Deviation 42.0 RDW Coeff of Mariam 12.8 Plt Count 207 MPV 9.5 Immature Gran % (Auto) Neut % (Auto) Lymph % (Auto) [place] % (Auto) Eos % (Auto) Baso % (Auto) Immature Gran # (Auto) Neut # (Auto) Lymph # (Auto) [place] # (Auto) Eos # (Auto) Baso # (Auto) Neutrophils % (Manual) 39.2 Lymphocytes % (Manual) 22.3 Reactive Lymphs % (Man) 26.8 Monocytes % (Manual) 6.3 Eosinophils % (Manual) 2.7 Basophils % (Manual) 1.8 Myelocytes % (Man) 0.9 Neutrophils # (Manual) 3.44 Total Absolute Neuts 3.44 Lymphocytes # (Manual) 1.96 Reactive Lymphs # 2.35 Total Abs Lymphocytes 4.31 H Monocytes # (Manual) 0.55 Eosinophils # (Manual) 0.24 Basophils # (Manual) 0.16 Myelocytes # (Manual) 0.08 H RBC Morphology Unremarkable PT 10.7 INR 1.0 APTT 25.7 PTT Ratio 0.9 Activ Coag Time Kaolin POC Sodium Sodium 140 POC Potassium Potassium 3.5 POC Chloride Chloride 107 Carbon Dioxide 24 POC Total CO2 Anion Gap 9.0 POC Anion Gap POC BUN BUN 13 Creatinine 1.10 POC Creatinine Est Cr Clr Drug Dosing 84.8 Est GFR ( Amer) 76.8 Est GFR (Non-Af Amer) 66.2 BUN/Creatinine Ratio 11.8 Glucose 147 H POC Glucose POC Glucose (other) Calcium 8.9 POC Ioniz Calcium Colleen Phosphorus 1.7 L Magnesium 2.0 Total Bilirubin 0.5 AST 20 ALT 24 Alkaline Phosphatase 69 POC Troponin I Troponin I < 0.015 Total Protein 7.8 Albumin 3.4 Globulin 4.4 H Albumin/Globulin Ratio 0.8 L LDL Cholesterol Direct Lipase 122 TSH 1.450 Nasal Screen MRSA (PCR) 02/27/19 02/27/19 02/27/19 17:02 17:03 17:07 WBC RBC Hgb POC Hgb 15.0 Hct POC Hct 44 MCV MCH MCHC RDW Std Deviation RDW Coeff of Mariam Plt Count MPV Immature Gran % (Auto) Neut % (Auto) Lymph % (Auto) [place] % (Auto) Eos % (Auto) Baso % (Auto) Immature Gran # (Auto) Neut # (Auto) Lymph # (Auto) [place] # (Auto) Eos # (Auto) Baso # (Auto) Neutrophils % (Manual) Lymphocytes % (Manual) Reactive Lymphs % (Man) Monocytes % (Manual) Eosinophils % (Manual) Basophils % (Manual) Myelocytes % (Man) Neutrophils # (Manual) Total Absolute Neuts Lymphocytes # (Manual) Reactive Lymphs # Total Abs Lymphocytes Monocytes # (Manual) Eosinophils # (Manual) Basophils # (Manual) Myelocytes # (Manual) RBC Morphology PT INR APTT PTT Ratio Activ Coag Time Kaolin 164 H POC Sodium 141 Sodium POC Potassium 3.6 Potassium POC Chloride 105 Chloride Carbon Dioxide POC Total CO2 24 Anion Gap POC Anion Gap 17.0 POC BUN 14 BUN Creatinine POC Creatinine 0.9 Est Cr Clr Drug Dosing Est GFR ( Amer) Est GFR (Non-Af Amer) BUN/Creatinine Ratio Glucose POC Glucose POC Glucose (other) 178 H Calcium POC Ioniz Calcium Colleen 1.14 Phosphorus Magnesium Total Bilirubin AST ALT Alkaline Phosphatase POC Troponin I < 0.03 Troponin I Total Protein Albumin Globulin Albumin/Globulin Ratio LDL Cholesterol Direct Lipase TSH Nasal Screen MRSA (PCR) 02/27/19 02/27/19 02/27/19 17:38 19:40 19:40 WBC 11.73 H RBC 4.53 L Hgb 14.3 POC Hgb Hct 40.6 L POC Hct MCV 89.6 MCH 31.6 MCHC 35.2 RDW Std Deviation 42.3 RDW Coeff of Mariam 12.9 Plt Count 183 MPV 9.6 Immature Gran % (Auto) 0.3 Neut % (Auto) 82.6 Lymph % (Auto) 11.1 [place] % (Auto) 5.5 Eos % (Auto) 0.3 Baso % (Auto) 0.2 Immature Gran # (Auto) 0.04 H Neut # (Auto) 9.69 H Lymph # (Auto) 1.30 [place] # (Auto) 0.65 H Eos # (Auto) 0.03 Baso # (Auto) 0.02 Neutrophils % (Manual) Lymphocytes % (Manual) Reactive Lymphs % (Man) Monocytes % (Manual) Eosinophils % (Manual) Basophils % (Manual) Myelocytes % (Man) Neutrophils # (Manual) Total Absolute Neuts Lymphocytes # (Manual) Reactive Lymphs # Total Abs Lymphocytes Monocytes # (Manual) Eosinophils # (Manual) Basophils # (Manual) Myelocytes # (Manual) RBC Morphology PT INR APTT PTT Ratio Activ Coag Time Kaolin 175 H POC Sodium Sodium POC Potassium Potassium POC Chloride Chloride Carbon Dioxide POC Total CO2 Anion Gap POC Anion Gap POC BUN BUN Creatinine POC Creatinine Est Cr Clr Drug Dosing Est GFR ( Amer) Est GFR (Non-Af Amer) BUN/Creatinine Ratio Glucose POC Glucose POC Glucose (other) Calcium POC Ioniz Calcium Colleen Phosphorus Magnesium Total Bilirubin AST ALT Alkaline Phosphatase POC Troponin I Troponin I Total Protein Albumin Globulin Albumin/Globulin Ratio LDL Cholesterol Direct 140 Lipase TSH Nasal Screen MRSA (PCR) 02/27/19 02/28/19 02/28/19 20:10 02:05 04:46 WBC RBC Hgb POC Hgb Hct POC Hct MCV MCH MCHC RDW Std Deviation RDW Coeff of Mariam Plt Count MPV Immature Gran % (Auto) Neut % (Auto) Lymph % (Auto) [place] % (Auto) Eos % (Auto) Baso % (Auto) Immature Gran # (Auto) Neut # (Auto) Lymph # (Auto) [place] # (Auto) Eos # (Auto) Baso # (Auto) Neutrophils % (Manual) Lymphocytes % (Manual) Reactive Lymphs % (Man) Monocytes % (Manual) Eosinophils % (Manual) Basophils % (Manual) Myelocytes % (Man) Neutrophils # (Manual) Total Absolute Neuts Lymphocytes # (Manual) Reactive Lymphs # Total Abs Lymphocytes Monocytes # (Manual) Eosinophils # (Manual) Basophils # (Manual) Myelocytes # (Manual) RBC Morphology PT INR APTT PTT Ratio Activ Coag Time Kaolin POC Sodium Sodium POC Potassium Potassium POC Chloride Chloride Carbon Dioxide POC Total CO2 Anion Gap POC Anion Gap POC BUN BUN Creatinine POC Creatinine Est Cr Clr Drug Dosing Est GFR ( Amer) Est GFR (Non-Af Amer) BUN/Creatinine Ratio Glucose POC Glucose 182 H POC Glucose (other) Calcium POC Ioniz Calcium Colleen Phosphorus Magnesium 2.0 Total Bilirubin AST ALT Alkaline Phosphatase POC Troponin I Troponin I Total Protein Albumin Globulin Albumin/Globulin Ratio LDL Cholesterol Direct Lipase TSH Nasal Screen MRSA (PCR) Negative 02/28/19 02/28/19 04:49 07:17 WBC RBC Hgb POC Hgb Hct POC Hct MCV MCH MCHC RDW Std Deviation RDW Coeff of Mariam Plt Count MPV Immature Gran % (Auto) Neut % (Auto) Lymph % (Auto) [place] % (Auto) Eos % (Auto) Baso % (Auto) Immature Gran # (Auto) Neut # (Auto) Lymph # (Auto) [place] # (Auto) Eos # (Auto) Baso # (Auto) Neutrophils % (Manual) Lymphocytes % (Manual) Reactive Lymphs % (Man) Monocytes % (Manual) Eosinophils % (Manual) Basophils % (Manual) Myelocytes % (Man) Neutrophils # (Manual) Total Absolute Neuts Lymphocytes # (Manual) Reactive Lymphs # Total Abs Lymphocytes Monocytes # (Manual) Eosinophils # (Manual) Basophils # (Manual) Myelocytes # (Manual) RBC Morphology PT INR APTT PTT Ratio Activ Coag Time Kaolin POC Sodium Sodium POC Potassium Potassium POC Chloride Chloride Carbon Dioxide POC Total CO2 Anion Gap POC Anion Gap POC BUN BUN Creatinine POC Creatinine Est Cr Clr Drug Dosing Est GFR ( Amer) Est GFR (Non-Af Amer) BUN/Creatinine Ratio Glucose POC Glucose 177 H 178 H POC Glucose (other) Calcium POC Ioniz Calcium Colleen Phosphorus Magnesium Total Bilirubin AST ALT Alkaline Phosphatase POC Troponin I Troponin I Total Protein Albumin Globulin Albumin/Globulin Ratio LDL Cholesterol Direct Lipase TSH Nasal Screen MRSA (PCR) Medications Administered Current Inpatient Medications Acetaminophen (Tylenol) 650 mg PO Q4H PRN PRN Reason: Mild Pain (scale 1-3) Stop: 03/29/19 18:56 [facility] [place]: 03/30/19 08:59 Last Admin: 02/28/19 07:26 Dose: 81 mg Documented by: Atorvastatin Calcium (Lipitor) [facility] [place]: 03/30/19 08:59 Dextrose (Dextrose 50%) 25 - 50 ml IV UD PRN; Protocol PRN Reason: Hypoglycemia Protocol Stop: 03/30/19 04:30 Enoxaparin Sodium (Lovenox) 40 mg SQ QAM [facility] Stop: 03/30/19 08:59 Last Admin: 02/28/19 07:27 Dose: 40 mg Documented by: Glucagon (Glucagen) 1 mg SQ UD PRN; Protocol PRN Reason: Hypoglycemia Protocol Stop: 03/30/19 04:30 Glucose (Dex4 Glucose) 4 - 8 tabs PO UD PRN; Protocol PRN Reason: Hypoglycemia Protocol Stop: 03/30/19 04:30 Glucose (Glucose 40%) 15 - 30 gm PO UD PRN; Protocol PRN Reason: Hypoglycemia Protocol Stop: 03/30/19 04:30 Promethazine HCl 12.5 mg/ (Sodium Chloride) 50.5 mls @ 202 mls/hr IV Q6H PRN PRN Reason: Nausea And Vomiting Stop: 03/29/19 19:48 Insulin Aspart (Novolog Flexpen) 0 units SC ACHS [facility] Stop: 03/30/19 04:34 Last Admin: 02/28/19 04:53 Dose: Not Given Documented by: Lisinopril (Zestril) 5 mg PO QAM [facility] Stop: 03/30/19 00:44 Last Admin: 02/28/19 00:47 Dose: 5 mg Documented by: Metoprolol Tartrate (Lopressor) 25 mg PO BID [facility] Stop: 03/30/19 08:59 Miscellaneous (Icu Protocol For Hyperglycemia) 1 ea N/A PRN PRN; Protocol PRN Reason: Hyperglycemia Protocol Stop: 03/01/19 18:41 Miscellaneous (Carbohydrates For Hypoglycemia) 15 - 30 gm PO UD PRN PRN Reason: Hypoglycemia Treatment Stop: 03/30/19 04:30 Morphine Sulfate (Morphine Sulfate) 4 mg IV Q4H PRN PRN Reason: Pain Stop: 03/13/19 19:48 Nitroglycerin (Nitrostat) 0.4 mg SL UD PRN PRN Reason: Chest Pain Stop: 03/29/19 16:58 Last Admin: 02/27/19 19:52 Dose: 0.4 mg Documented by: Tamsulosin HCl (Flomax) 0.4 mg PO DAILY [facility] Stop: 03/29/19 19:14 Last Admin: 02/28/19 07:26 Dose: 0.4 mg Documented by: Ticagrelor (Brilinta) 90 mg PO BID [facility] Stop: 03/30/19 08:59 Last Admin: 02/28/19 07:26 Dose: 90 mg Documented by: Tramadol HCl (Ultram) 25 - 50 mg PO Q4H PRN PRN Reason: Pain Stop: 03/29/19 19:48 (1) ST elevation (STEMI) myocardial infarction Involved coronary artery: LAD coronary artery Qualified Code(s): I21.02 - ST elevation (STEMI) myocardial infarction involving left anterior descending coronary artery
[2019-02-28] MEDS: ATORVASTATIN 40 MG TAB PO SCH (09:41)
[2019-02-28] MEDS: METOPROLOL TARTRATE 25 MG TAB PO SCH ×2 (09:41→20:51)
[2019-02-28 09:47] LABS: BUN Creatinine Ratio 14.5 (10-20); Calcium 8.8 mg/dl (8.5-10.1); Creatinine Clr Calc Pharmacy 101.3 ml/min; Est GFR (African American) 90.5; Est GFR (Non-African American) 78.1; Potassium 3.8 mmol/L (3.5-5.1)
--- NOTE | 2019-02-28 10:07 | XRay Report ---
XR chest 1V portable HISTORY: 73 years-old Male STEMI, hypoxia acute hypoxia COMPARISON: Chest radiograph 02/27/2019 TECHNIQUE: Portable AP view of the chest FINDINGS: Cardiac silhouette is enlarged, unchanged. Temporary pacer projecting over the right ventricle redemo nstrated. There is a kink noted about the proximal portion of the lead at the level of the clavicular head. Calcification the thoracic aortic arch. No pneumothorax, pleural effusion or overt pulmonary e jenn. Mild diaphragmatic elevation. IMPRESSION: 1. Cardiomegaly without acute process. 2. Single pacer lead overlying the right ventricle redemonstrated. A kink is noted about the proximal portion of the lead at the level of the clavicular head. The above report was generated using voice recognition software. It may contain grammatical, syntax o r spelling errors. Electronically signed by: Vick Oglesby M.D. 02/28/2019 10:05 AM
--- NOTE | 2019-02-28 12:02 | Critical Care Consultation ---
Date of Consultation February 28, 2019 Assessment & Plan (1) Chest pain: Impression: 1. ST elevation AZ, status post PCI with 3 CHEL to LAD. 2. Bradycardia, post AZ, status post temporary pacer wire. 3. Morbid obesity, possible obstructive sleep apnea. 4. Hypertension, borderline diabetes. Plan: 1. Continue post PCI day 2 treatment, patient is already on antiplatelet therapy, SHAHZAD inhibitors, beta-blockers. 2. Continue current treatment. 3. GI and DVT prophylaxis. 4. Glucose control. 5. Case discussed with Dr. Barajas, appreciate input. 6. Disposition plan per the principal team. Critical care time spent with the patient was 35 minutes including discussion with the staff. History of Present Illness Reason for Consultation: Acute chest pain syndrome Requesting Physician: Dr. Barajas Attending Physician: Hadyen Barajas MD History of Present Illness Dear Dr. Barajas: Thank you for your kind referral of Mrs. Salmon to critical care service. This 73-year-old gentleman with a history of hypertension, borderline diabetes, morbid obesity, has had episodes of chest pain in the past according to him 5 years ago where he has been evaluated and it was negative for ACS, the patient presented this time with sudden onset chest pain that has been heavy at the time. The patient was taken to the [facility] and underwent 3 stents placement in the LAD. The patient did have a brief period of bradycardia and underwent also placement of temporary pacer wire. According to the nursing staff, he did not have activation of the temporary pacer. Today, the patient denies any chest pain, no shortness of breath, tolerating oral intake, no nausea no vomiting, no dizziness or near syncopal episodes, he does not have any palpitation, and no evidence on the monitor throughout the night for bradycardia. Allergies Allergy/AdvReac Type Severity Reaction Status Date / Time levofloxacin Allergy Intermediate HIVES Verified 02/27/19 19:13 Home Medications Home Medications Medication Instructions Recorded Confirmed Type tamsulosin 0.4 mg PO DAILY 02/27/19 02/27/19 History Patient History Medical History Hypertension (Chronic) Obesity (Chronic) BPH (benign prostatic hypertrophy) (Chronic) Surgical History H/O cataract removal with insertion of prosthetic lens (Chronic) History of total left hip arthroplasty (Chronic) "2013; Dr. 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 Physical Exam Physical Exam: Vital signs are stable, blood pressure slightly elevated, S1-S2 regular rate and rhythm, lungs are clear, right anterior IJ pacer wire in place, abdomen is benign, no edema, morbid obesity, neurologically is intact, no skin rash and no mucosal abnormality. Results & Data Vital Signs (Past 12 Hours) Vital Signs Temp Pulse Resp BP Pulse Ox 02/28/19 08:01 36.4 C L 65 20 169/77 H 92 02/28/19 08:00 65 20 92 02/28/19 07:31 78 14 166/77 H 93 02/28/19 07:30 68 17 92 02/28/19 07:28 74 14 123/78 93 02/28/19 07:01 64 16 123/78 91 02/28/19 07:00 63 19 93 02/28/19 06:31 66 18 171/76 H 95 02/28/19 06:30 64 18 94 02/28/19 06:02 66 18 97 02/28/19 06:01 67 25 H 164/73 H 97 02/28/19 06:00 83 16 94 02/28/19 05:31 65 19 167/73 H 98 02/28/19 05:01 66 20 159/73 H 93 02/28/19 05:00 64 18 96 02/28/19 04:30 63 17 164/75 H 97 02/28/19 04:01 65 19 158/71 H 94 02/28/19 04:00 70 18 93 02/28/19 03:32 61 20 97 02/28/19 03:31 64 18 176/71 H 97 02/28/19 03:30 68 18 97 02/28/19 03:15 63 18 96 02/28/19 03:09 63 20 186/75 H 98 02/28/19 03:01 66 20 209/84 H 95 02/28/19 03:00 70 19 97 02/28/19 02:45 64 18 94 02/28/19 02:31 68 22 203/64 H 92 02/28/19 02:30 65 16 94 02/28/19 02:15 63 18 96 02/28/19 02:01 63 19 176/71 H 97 02/28/19 02:00 72 23 98 02/28/19 01:45 67 17 97 02/28/19 01:31 63 16 195/80 H 97 02/28/19 01:30 65 18 96 02/28/19 01:15 67 18 96 02/28/19 01:01 67 18 188/78 H 96 02/28/19 01:00 71 19 95 02/28/19 00:45 66 19 95 02/28/19 00:32 68 16 96 02/28/19 00:31 66 24 213/91 H 97 02/28/19 00:30 71 21 97 02/28/19 00:08 70 24 97 02/28/19 00:01 70 21 197/89 H 96 02/28/19 00:00 71 19 97 Laboratory Results Slight leukocytosis, CBC otherwise are unremarkable. BMP within normal range. Slight hyperglycemia. Troponin is 61 expected post PCI. Diagnostic Findings Chest x-ray showed slight cardiomegaly, no pulmonary vascular congestion. The pacer wire in place. (1) Chest pain Chest pain type: chest pain due to myocardial ischemia Ischemic chest pain type: unspecified angina pectoris type Qualified Code(s): I25.9 - Chronic ischemic heart disease, unspecified
--- NOTE | 2019-02-28 13:18 | Cardiology Progress Note ---
Date of Service February 28, 2019 Assessment & Plan (1) ST elevation (STEMI) myocardial infarction: (2) AV block, postoperative: Pacer checked threshold 0.2 mA, set at 60 bpm and 1 mA and turned off. Monitor for AV or infranodal block before removing tomorrow. Remove carefully given "kink" by todays CXR. Empiric Ancef given WBC without fever with site as found today. Present on Admission?: No Subjective Patient reports no chest pain pr dyspnea, hasnt been out of bed. Pressure devices removed from both wrists. Review of Systems Constitutional: no fever, no chills and no sweats Respiratory: + snoring; no cough and no chest congestion Cardiovascular: no chest pain at rest, no palpitations and no syncope Gastrointestinal: no blood in stools Genitourinary: no hematuria Hematologic / Lymphatic: no easy bruising Physical Exam Constitutional: + obese Neck: Pacer insertion site open to air/undressed though pacer wire and sterile sleeve are adherent to neck with Tegaderm, no drainage (purulent or otherwise) or bleeding is present. Respiratory: normal respiratory effort, lungs clear to auscultation Cardiovascular: RRR, no murmur, no edema Vessels: radial pulses present Review of telemtry shows no significant AV block, no more switching bundles as on last nights EKG's; PVC's and short runs AIVR noted; lidocaine discontinued. EKG's are reviewed and demontrate near complete resolution of ST-changes with baseline RBBB and septal Q-waves. Results & Data Vital Signs (Past 12 Hours) Vital Signs Temp Pulse Resp BP Pulse Ox 02/28/19 08:01 36.4 C L 65 20 169/77 H 92 02/28/19 08:00 65 20 92 02/28/19 07:31 78 14 166/77 H 93 02/28/19 07:30 68 17 92 02/28/19 07:28 74 14 123/78 93 02/28/19 07:01 64 16 123/78 91 02/28/19 07:00 63 19 93 02/28/19 06:31 66 18 171/76 H 95 02/28/19 06:30 64 18 94 02/28/19 06:02 66 18 97 02/28/19 06:01 67 25 H 164/73 H 97 02/28/19 06:00 83 16 94 04/28/19 05:31 65 19 167/73 H 98 02/28/19 05:01 66 20 159/73 H 93 02/28/19 05:00 64 18 96 02/28/19 04:30 63 17 164/75 H 97 02/28/19 04:01 65 19 158/71 H 94 02/28/19 04:00 70 18 93 02/28/19 03:32 61 20 97 02/28/19 03:31 64 18 176/71 H 97 02/28/19 03:30 68 18 97 02/28/19 03:15 63 18 96 02/28/19 03:09 63 20 186/75 H 98 02/28/19 03:01 66 20 209/84 H 95 02/28/19 03:00 70 19 97 02/28/19 02:45 64 18 94 02/28/19 02:31 68 22 203/64 H 92 02/28/19 02:30 65 16 94 02/28/19 02:15 63 18 96 02/28/19 02:01 63 19 176/71 H 97 02/28/19 02:00 72 23 98 02/28/19 01:45 67 17 97 02/28/19 01:31 63 16 195/80 H 97 02/28/19 01:30 65 18 96 02/28/19 01:15 67 18 96 (1) ST elevation (STEMI) myocardial infarction Involved coronary artery: LAD coronary artery Qualified Code(s): I21.02 - ST elevation (STEMI) myocardial infarction involving left anterior descending coronary artery
[2019-02-28] MEDS: CEFAZOLIN 2000MG 2,000 MG/15 ML SYR IV SCH ×2 (14:46→20:51)
[2019-02-28] MEDS ORDERED: LIDOCAINE 2% 20 MG/ML 5 ML SYR IV ONE (15:56)
--- NOTE | 2019-02-28 20:20 | Hospitalist Progress Note ---
Date of Service February 28, 2019 Assessment & Plan (1) ST elevation (STEMI) myocardial infarction: S/P PCI. Receiving aspirin, ticagrelor, metoprolol, lisinopril, atorvastatin. (2) AV block, postoperative: Temporary pacemaker inserted. (3) Hypertension: Receiving lisinopril and metoprolol. Follow and titrate Rx. (4) Hypoxia: O2 sats low during the night. No overt CHF on this morning's CXR. Consider sleep apnea and / or obesity hypoventilation syndrome. Check nocturnal pulse oximetry. (5) Hyperglycemia: History of prediabetes. Fingerstick blood sugars 170's - 180's. Hgb A1C pending. Follow. (6) Dyslipidemia: Direct LDL = 140. Started on atorvastatin. (7) BPH (benign prostatic hypertrophy): Continue tamsulosin. (8) DVT prophylaxis: SQ enoxaparin. (9) Discharge planning issues: Anticipated discharge to home. Family Medicine follow-up with Dr. Christie. Subjective Recheck for STEMI and other problems. Patient seen in their room around 0850. Pt brought to ED yesterday by EMS after experiencing severe chest pain while mowing grass on riding mower. EKG indicated anterior STEMI. Heart Alert called and taken to cathode ray tube assembler for PCI. Admitted to ICU after PCI. Had bradycardia requiring atropine and insertion of temporary pacemaker wire. Had frequent ventricular ectopy and started on lidocaine infusion. Hypoxic during the night. Comfortable this morning. No chest pain. No cough or SOB. Review of Systems: Constitutional- no fever. Cardiac- as noted above Pulmonary- as noted above GI- no nausea, vomiting, diarrhea, melena, hematochezia. - no urinary symptoms. Otherwise, as noted above. Physical Exam Constitutional: no acute distress Neck: + abnormal visual inspection (transvenous pacemaker introducer right IJ) Respiratory: no respiratory distress Auscultation: + rales (few bibasilar) Cardiovascular: Rate/Rhythm: regular rate and regular rhythm Heart Sounds: no gallop, no murmur and no cardiac rub Vessels: no JVD Extremities: no calf tenderness and no edema Gastrointestinal (Abdomen): normal bowel sounds, soft, nontender, no hepatosplenomegaly Skin: no rashes, warm and dry Psychiatric: Orientation: alert and oriented x 3 Results & Data Vital Signs (Past 12 Hours) Vital Signs Temp Pulse Resp BP Pulse Ox 02/28/19 18:01 70 10 L 142/73 H 95 02/28/19 18:00 70 16 92 02/28/19 17:31 71 24 139/70 94 02/28/19 17:30 70 20 96 02/28/19 17:01 72 18 141/66 H 95 02/28/19 17:00 67 21 95 02/28/19 16:32 81 15 147/68 H 95 02/28/19 16:30 72 19 97 02/28/19 16:02 67 36 H 93 02/28/19 16:01 66 25 H 132/68 93 02/28/19 16:00 37.0 C 64 28 H 94 02/28/19 15:31 63 14 126/70 93 02/28/19 15:30 60 15 95 02/28/19 15:01 68 21 126/71 94 02/28/19 15:00 63 21 96 02/28/19 14:31 66 20 120/73 95 02/28/19 14:30 65 19 95 02/28/19 14:01 67 21 129/72 94 02/28/19 14:00 64 21 94 02/28/19 13:31 75 21 126/70 91 02/28/19 13:30 72 23 93 02/28/19 13:19 68 23 117/56 L 95 02/28/19 13:01 67 22 140/62 95 02/28/19 13:00 69 23 95 02/28/19 12:31 73 28 H 157/74 H 95 02/28/19 12:30 72 22 96 02/28/19 12:01 73 20 149/66 H 95 02/28/19 12:00 78 13 96 02/28/19 11:31 73 21 175/86 H 94 02/28/19 11:30 79 20 95 02/28/19 11:01 69 16 156/69 H 94 02/28/19 11:00 72 18 95 02/28/19 10:31 73 23 152/81 H 93 02/28/19 10:30 69 19 92 02/28/19 10:01 68 21 172/73 H 94 02/28/19 10:00 71 24 95 02/28/19 09:31 72 26 H 173/72 H 95 02/28/19 09:30 70 26 H 95 02/28/19 09:01 74 21 178/88 H 95 02/28/19 09:00 74 27 H 95 02/28/19 08:31 81 22 172/81 H 94 02/28/19 08:30 76 14 94 Laboratory Results Laboratory Results - last 24 hr 02/27/19 02/27/19 02/27/19 16:39 19:40 20:10 Sodium Potassium Chloride Carbon Dioxide Anion Gap BUN Creatinine Est Cr Clr Drug Dosing Est GFR ( Amer) Est GFR (Non-Af Amer) BUN/Creatinine Ratio Glucose POC Glucose Calcium Magnesium Troponin I Triglycerides Cholesterol LDL Cholesterol Direct 140 LDL Cholesterol, Calc VLDL Cholesterol, Calc HDL Cholesterol Cholesterol/HDL Ratio TSH 1.450 Nasal Screen MRSA (PCR) Negative 02/28/19 02/28/19 02/28/19 02:05 04:46 04:49 Sodium Potassium Chloride Carbon Dioxide Anion Gap BUN Creatinine Est Cr Clr Drug Dosing Est GFR ( Amer) Est GFR (Non-Af Amer) BUN/Creatinine Ratio Glucose POC Glucose 182 H 177 H Calcium Magnesium 2.0 Troponin I Triglycerides Cholesterol LDL Cholesterol Direct LDL Cholesterol, Calc VLDL Cholesterol, Calc HDL Cholesterol Cholesterol/HDL Ratio TSH Nasal Screen MRSA (PCR) 02/28/19 02/28/19 02/28/19 07:17 09:07 09:07 Sodium 138 Potassium 3.8 Chloride 104 Carbon Dioxide 26 Anion Gap 8.0 BUN 14 Creatinine 0.96 Est Cr Clr Drug Dosing 101.3 Est GFR ( Amer) 90.5 Est GFR (Non-Af Amer) 78.1 BUN/Creatinine Ratio 14.5 Glucose 203 H POC Glucose 178 H Calcium 8.8 Magnesium Troponin I 61.300 H* Triglycerides 112 Cholesterol 200 LDL Cholesterol Direct LDL Cholesterol, Calc 132 VLDL Cholesterol, Calc 22 HDL Cholesterol 46 Cholesterol/HDL Ratio 4 TSH Nasal Screen MRSA (PCR) 02/28/19 02/28/19 11:16 16:16 Sodium Potassium Chloride Carbon Dioxide Anion Gap BUN Creatinine Est Cr Clr Drug Dosing Est GFR ( Amer) Est GFR (Non-Af Amer) BUN/Creatinine Ratio Glucose POC Glucose 184 H 183 H Calcium Magnesium Troponin I Triglycerides Cholesterol LDL Cholesterol Direct LDL Cholesterol, Calc VLDL Cholesterol, Calc HDL Cholesterol Cholesterol/HDL Ratio TSH Nasal Screen MRSA (PCR) (1) ST elevation (STEMI) myocardial infarction Involved coronary artery: LAD coronary artery Qualified Code(s): I21.02 - ST elevation (STEMI) myocardial infarction involving left anterior descending coronary artery
[2019-03-01 05:03] LABS: Basophils # (auto) 0.02 K/uL (0-0.2); Basophils % (auto) 0.2 %; Eosinophils # (auto) 0.13 K/uL (0-0.5); Eosinophils % (auto) 1.5 %; Hematocrit (blood only) 42.1 % (42-52); Hemoglobin 14.7 g/dL (14.0-18.0); Immature Granulocytes # (auto) 0.02 K/uL (0.00-0.02); Immature Granulocytes % (auto) 0.2 %; Lymphocytes # (auto) 1.59 K/uL (1.2-3.4); Lymphocytes % (auto) 18.5 %; Mean Corpuscular Hgb Conc 34.9 g/dL (32-36); Mean Corpuscular Volume 89.8 fL (80-100); Mean Platelet Volume 9.7 fL (7.4-10.4); Monocytes # (auto) 0.87 K/uL (0.11-0.59); Monocytes % (auto) 10.1 %; Neutrophils # (auto) 5.97 K/uL (1.4-6.5); Neutrophils % (auto) 69.5 %; Platelet Count 150 K/uL (130-400); RDW Coefficient of Variation 13.1 % (11.5-14.5); RDW Standard Deviation 42.8 fL (36.4-46.3); Red Blood Count 4.69 M/uL (4.7-6.1)
[2019-03-01 05:28] LABS: BUN Creatinine Ratio 20.2 (10-20); Calcium 8.5 mg/dl (8.5-10.1); Est GFR (African American) 102.2; Est GFR (Non-African American) 88.2; Potassium 3.6 mmol/L (3.5-5.1)
[2019-03-01] MEDS: CEFAZOLIN 2000MG 2,000 MG/15 ML SYR IV SCH ×3 (05:49→20:26)
[2019-03-01 06:03] LABS: Estimated Average Glucose 163 mg/dl; Hemoglobin A1C 7.3 % (4.5-5.6)
--- NOTE | 2019-03-01 07:56 | Operative Report ---
DATE OF OPERATION: 02/27/2019 INDICATIONS: Acute anterolateral NM presenting in a timely (less than 1 hour) fashion in an untreated hypertensive male with no presenting signs of congestive heart failure. PROCEDURE PERFORMED: Left heart catheterization, coronary cineangiography and PCI with drug-eluting stent x3, left anterior descending artery radiologic interpretation and supervision. METHOD: Upon arrival to the lab scientist, the patient was prepped and draped in the usual sterile fashion. After local infiltration with 2% lidocaine, attempts at placing a 6-Chilean sheath in the right radial artery were unsuccessful. A compression band was applied. A 6-Chilean sheath was placed in the left radial artery. Sheath was aspirated and flushed after IV nitroglycerin and nicardipine was administered. A 6-Chilean EBU 4 guiding catheter was advanced over wire under fluoroscopic guidance into the central circulation where it was aspirated and flushed. After confirmation of adequate waveforms, it was advanced into the left main. Cineangiograms of the left anterior descending artery were obtained and reviewed. A 0.014-inch Fleet Administrator wire was advanced through the guiding catheter across the area of stenosis of the apical LAD. A 2.0 Mini Trek 15 angioplasty catheter was placed in mid left anterior descending artery, inflated to maximum pressure less than a minute and the balloon was withdrawn. A 3.0 Xience 18 then 3.0 Xience 28 then 3.5 Xience 12 stent were positioned in the mid LAD, each inflated to maximum pressure less than a minute and the balloon was withdrawn. Stented segment was postdilated using a 3.5 NC Trek 15 to maximum pressure for the than 1 minute on multiple occasions. The balloon was withdrawn. Final cineangiograms were obtained and the wire was removed from the coronary artery. The guiding catheter was removed from the left main under fluoroscopic guidance from the body over wire and the sheath was aspirated and flushed. A 5-Chilean diagnostic JR 3.5 catheter was advanced over wire under fluoroscopic guidance across the aortic valve. Left ventricular end diastolic pressure was measured. The catheter was removed from the left ventricle to the aorta. Catheter was used to engage the origin of the right coronary artery. Cineangiograms of the right coronary were obtained and reviewed. The catheter was removed from the right main under fluoroscopic guidance from the body over wire and the sheath was aspirated and flushed. External compression device was deployed over the left radial artery. The patient returned to his room in good condition. COMPLICATIONS: None. FINDINGS: Left main is normal. Left anterior descending artery is moderate in caliber with a mid total occlusion after the origin of a moderate sized first diagonal branch. Left circumflex is large in caliber with no significant stenosis present. Small first marginal a moderate sized first posterolateral branch and 2nd posterolateral branch, and the posterior descending artery arising from the distal circumflex were all free of significant disease. The right coronary artery is small and nondominant with no significant stenosis present. Left ventricular end diastolic pressure is mildly elevated. No significant aortic valve gradient is demonstrated. Final cineangiograms demonstrate no residual stenosis, no uncovered dissection or MARITZA grade 3 flow throughout the LAD. IMPRESSION: Successful angioplasty and drug-eluting stent placement. Recommendations were dual antiplatelet therapy for 6-12 months. Medical therapy post-NM. I attest to the content of the Intraoperative Record and any orders documented therein. Any exception s are noted below.
--- NOTE | 2019-03-01 07:57 | Operative Report ---
DATE OF OPERATION: 02/27/2019 INDICATIONS: Ventricular escape rhythm with a left bundle branch block pattern and retrograde P waves, switching left and right bundle branch block on EKG in the face of acute anterolateral VA, patient is normotensive. PROCEDURE PERFORMED: Temporary venous access, placement of temporary pacemaker wire under fluoroscopy. Pacemaker testing, radiological interpretation and supervision and acute cardiac care. DESCRIPTION OF PROCEDURE: Upon arrival in the cath lab tech, the patient was prepped and draped in the usual sterile fashion. After local infiltration of 2% lidocaine, a 6-Guatemalan sheath was placed in the right internal jugular via middle approach. Sheath was sutured to the right neck. A 5-Guatemalan balloon tipped temporary pacing wire was advanced under fluoroscopic guidance from the right IJ to the right ventricular apex where it was tested and left on. Soon thereafter, the patient developed ventricular fibrillation requiring 2 asynchronous defibrillations with successful return to sinus rhythm, bullous and rebolus, and IV maintenance drip of lidocaine at 1 mg per minute was initiated. Pacing wire which had been withdrawn upon development of ventricular arrhythmia was repositioned and tested again left on with no recurrence of ventricular arrhythmias noted. Pacing wire was secured to the right head and neck. EKG was performed before leaving the cath lab tech. The patient returned to his room in good condition. COMPLICATIONS: None. FINDINGS: A pacing wire was advanced to 36 cm with a pacing threshold of 1/2 milliamp, pacer was left on at 60 at 3 milliamps and full demand mode. IMPRESSION: Successful temporary pacing wire. I attest to the content of the Intraoperative Record and any orders documented therein. Any exception s are noted below.
[2019-03-01] MEDS: INSULIN ASPART 100 UNITS/ML 3 ML PEN SC SCH ×4 (08:13→20:28)
[2019-03-01] MEDS: ENOXAPARIN INJ 40 MG/0.4 ML SYR SQ SCH (08:14)
[2019-03-01] MEDS: TICAGRELOR 90 MG TAB PO SCH ×2 (08:14→20:26)
[2019-03-01] MEDS: LISINOPRIL 5 MG TAB PO SCH (08:14)
[2019-03-01] MEDS: METOPROLOL TARTRATE 25 MG TAB PO SCH ×2 (08:14→20:27)
[2019-03-01] MEDS: TAMSULOSIN HCL 0.4 MG CAP PO SCH (08:14)
[2019-03-01] MEDS: ATORVASTATIN 40 MG TAB PO SCH (08:14)
[2019-03-01] MEDS: ASPIRIN 81 MG ECTAB PO SCH (08:14)
[2019-03-01] MEDS ORDERED: LISINOPRIL 5 MG TAB PO ONE (09:32)
--- NOTE | 2019-03-01 09:38 | Cardiology Progress Note ---
Date of Service March 01, 2019 Assessment & Plan (1) ST elevation (STEMI) myocardial infarction: The patient is clinically stable after his stent placement. Patient had an uneventful night. No more arrhythmias. Temporary pacing line was removed this morning. The patient can be transferred to a regular telemetry floor depending on bed availability. I will consult cardiac rehab. (2) Hypertension: Increase lisinopril to 10 mg daily. (3) Obesity: He should be evaluated as an outpatient for sleep apnea (4) Diabetes: Hemoglobin A1c was 7.3 Subjective The patient had uneventful night. He has had a stable heart rhythm since yesterday. He is tolerating his medications. Temporary pacing line was removed. I have discussed the option of cardiac rehab with him and he would like to proceed. Review of Systems Review of Systems: All systems reviewed & are unremarkable except as noted in HPI & below Unchanged. Physical Exam Physical Exam: General: no acute distress and stated age Head: normocephalic, no masses, lesions, tenderness or abnormalities Eyes: conjunctiva are pink and non-injected, sclera clear Neck: supple, no adenopathy, no bruits, normal jugular venous pulse, no hepatojugular reflux Chest: normal shape and normal respiratory effort Lungs: clear to auscultation and percussion Cardiac Exam: - regular rate & rhythm, no murmurs gallops or rubs - normal S1, normal S2 Pulses: 2(+) throughout Abdomen: abdomen soft, non-tender, no abnormal masses and no hepatosplenomegaly Musculoskeletal: no gait disturbance, no joint inflammation, no deforming arthritis Extremities: no edema and no cyanosis Neuro: grossly normal exam Results & Data Vital Signs (Past 12 Hours) Vital Signs Temp Pulse Resp BP Pulse Ox 03/01/19 09:00 70 23 95 03/01/19 08:34 67 27 H 95 03/01/19 08:01 75 21 148/73 H 96 03/01/19 08:00 75 25 H 96 03/01/19 07:30 74 15 94 03/01/19 07:01 59 L 19 138/68 94 03/01/19 07:00 61 19 94 03/01/19 06:45 62 20 93 03/01/19 06:00 71 16 143/81 H 94 03/01/19 05:01 62 18 111/67 93 03/01/19 04:01 58 L 15 131/83 94 04/29/19 03:01 62 17 162/68 H 94 03/01/19 02:01 65 10 L 149/78 H 96 03/01/19 01:01 61 18 158/65 H 94 03/01/19 00:01 36.8 C 66 27 H 142/75 H 94 02/28/19 23:08 70 02/28/19 23:01 66 18 135/72 93 02/28/19 22:01 70 18 102/65 91 Laboratory Results Laboratory Results - last 24 hr 02/27/19 02/28/19 02/28/19 19:40 09:07 09:07 WBC RBC Hgb Hct MCV MCH MCHC RDW Std Deviation RDW Coeff of Mariam Plt Count MPV Immature Gran % (Auto) Neut % (Auto) Lymph % (Auto) [place] % (Auto) Eos % (Auto) Baso % (Auto) Immature Gran # (Auto) Neut # (Auto) Lymph # (Auto) [place] # (Auto) Eos # (Auto) Baso # (Auto) Sodium 138 Potassium 3.8 Chloride 104 Carbon Dioxide 26 Anion Gap 8.0 BUN 14 Creatinine 0.96 Est Cr Clr Drug Dosing 101.3 Est GFR ( Amer) 90.5 Est GFR (Non-Af Amer) 78.1 BUN/Creatinine Ratio 14.5 Glucose 203 H POC Glucose Estimat Average Glucose 163 Hemoglobin A1c 7.3 H Calcium 8.8 Troponin I 61.300 H* Triglycerides 112 Cholesterol 200 LDL Cholesterol, Calc 132 VLDL Cholesterol, Calc 22 HDL Cholesterol 46 Cholesterol/HDL Ratio 4 02/28/19 02/28/19 02/28/19 11:16 16:16 20:53 WBC RBC Hgb Hct MCV MCH MCHC RDW Std Deviation RDW Coeff of Mariam Plt Count MPV Immature Gran % (Auto) Neut % (Auto) Lymph % (Auto) [place] % (Auto) Eos % (Auto) Baso % (Auto) Immature Gran # (Auto) Neut # (Auto) Lymph # (Auto) [place] # (Auto) Eos # (Auto) Baso # (Auto) Sodium Potassium Chloride Carbon Dioxide Anion Gap BUN Creatinine Est Cr Clr Drug Dosing Est GFR ( Amer) Est GFR (Non-Af Amer) BUN/Creatinine Ratio Glucose POC Glucose 184 H 183 H 167 H Estimat Average Glucose Hemoglobin A1c Calcium Troponin I Triglycerides Cholesterol LDL Cholesterol, Calc VLDL Cholesterol, Calc HDL Cholesterol Cholesterol/HDL Ratio 03/01/19 03/01/19 03/01/19 04:48 04:48 07:27 WBC 8.60 RBC 4.69 L Hgb 14.7 Hct 42.1 MCV 89.8 MCH 31.3 MCHC 34.9 RDW Std Deviation 42.8 RDW Coeff of Mariam 13.1 Plt Count 150 MPV 9.7 Immature Gran % (Auto) 0.2 Neut % (Auto) 69.5 Lymph % (Auto) 18.5 [place] % (Auto) 10.1 Eos % (Auto) 1.5 Baso % (Auto) 0.2 Immature Gran # (Auto) 0.02 Neut # (Auto) 5.97 Lymph # (Auto) 1.59 [place] # (Auto) 0.87 H Eos # (Auto) 0.13 Baso # (Auto) 0.02 Sodium 137 Potassium 3.6 Chloride 105 Carbon Dioxide 27 Anion Gap 5.0 BUN 16 Creatinine 0.81 Est Cr Clr Drug Dosing 120.0 Est GFR ( Amer) 102.2 Est GFR (Non-Af Amer) 88.2 BUN/Creatinine Ratio 20.2 H Glucose 153 H POC Glucose 152 H Estimat Average Glucose Hemoglobin A1c Calcium 8.5 Troponin I Triglycerides Cholesterol LDL Cholesterol, Calc VLDL Cholesterol, Calc HDL Cholesterol Cholesterol/HDL Ratio Medications Administered Current Inpatient Medications Acetaminophen (Tylenol) 650 mg PO Q4H PRN PRN Reason: Mild Pain (scale 1-3) Stop: 03/29/19 18:56 Aspirin (Ecotrin Ectab) 81 mg PO [facility] Stop: 03/30/19 08:59 Last Admin: 03/01/19 08:14 Dose: 81 mg Documented by: Atorvastatin Calcium (Lipitor) 80 mg PO [facility] Stop: 03/30/19 08:59 Last Admin: 03/01/19 08:14 Dose: 80 mg Documented by: Dextrose (Dextrose 50%) 25 - 50 ml IV UD PRN; Protocol PRN Reason: Hypoglycemia Protocol Stop: 03/30/19 04:30 Enoxaparin Sodium (Lovenox) 40 mg SQ [facility] Stop: 03/30/19 08:59 Last Admin: 03/01/19 08:14 Dose: 40 mg Documented by: Glucagon (Glucagen) 1 mg SQ UD PRN; Protocol PRN Reason: Hypoglycemia Protocol Stop: 03/30/19 04:30 Glucose (Dex4 Glucose) 4 - 8 tabs PO UD PRN; Protocol PRN Reason: Hypoglycemia Protocol Stop: 03/30/19 04:30 Glucose (Glucose 40%) 15 - 30 gm PO UD PRN; Protocol PRN Reason: Hypoglycemia Protocol Stop: 03/30/19 04:30 Promethazine HCl 12.5 mg/ (Sodium Chloride) 50.5 mls @ 202 mls/hr IV Q6H PRN PRN Reason: Nausea And Vomiting Stop: 03/29/19 19:48 Cefazolin Sodium (Ancef 2000mg) 2,000 mg in 15 mls @ 3.75 mls/min IV Q8H [facility] Stop: 03/02/19 12:59 Last Admin: 03/01/19 05:49 Dose: 3.75 mls/min Documented by: Insulin Aspart (Novolog Flexpen) 0 units SC ACHS [facility] Stop: 03/30/19 04:34 Last Admin: 03/01/19 08:13 Dose: 4 units Documented by: Lisinopril (Zestril) 10 mg PO QAM [facility] Stop: 04/01/19 08:59 Metoprolol Tartrate (Lopressor) 25 mg PO BID [facility] Stop: 03/30/19 08:59 Last Admin: 03/01/19 08:14 Dose: 25 mg Documented by: Miscellaneous (Icu Protocol For Hyperglycemia) 1 ea N/A PRN PRN; Protocol PRN Reason: Hyperglycemia Protocol Stop: 03/01/19 18:41 Miscellaneous (Carbohydrates For Hypoglycemia) 15 - 30 gm PO UD PRN PRN Reason: Hypoglycemia Treatment Stop: 03/30/19 04:30 Morphine Sulfate (Morphine Sulfate) 4 mg IV Q4H PRN PRN Reason: Pain Stop: 03/13/19 19:48 Nitroglycerin (Nitrostat) 0.4 mg SL UD PRN PRN Reason: Chest Pain Stop: 03/29/19 16:58 Last Admin: 02/27/19 19:52 Dose: 0.4 mg Documented by: Tamsulosin HCl (Flomax) 0.4 mg PO DAILY [facility] Stop: 03/29/19 19:14 Last Admin: 03/01/19 08:14 Dose: 0.4 mg Documented by: Ticagrelor (Brilinta) 90 mg PO BID [facility] Stop: 03/30/19 08:59 Last Admin: 03/01/19 08:14 Dose: 90 mg Documented by: Tramadol HCl (Ultram) 25 - 50 mg PO Q4H PRN PRN Reason: Pain Stop: 03/29/19 19:48 (1) ST elevation (STEMI) myocardial infarction Involved coronary artery: LAD coronary artery Qualified Code(s): I21.02 - ST elevation (STEMI) myocardial infarction involving left anterior descending coronary artery
--- NOTE | 2019-03-01 09:42 | Critical Care Progress Note ---
Date of Service March 01, 2019 Assessment & Plan (1) ST elevation (STEMI) myocardial infarction: Neuro- awake alert CV- HD stable. s/p STEMI with CHEL to LAD. aspirin, ticagrelor, atorvastatin, metoprolol, lisinopril. Pulmonary- sat well on RA ID- no signs infection Renal- cr ok GI- diet as tolerated Heme- enoxaparin proph Endocrine- blood sugars ok though fasting >126. hgb a1c is high at 7.3. wlll need reeval of sugars as outpatient as likely has DM Dispo- ok to transfer out of ICU Subjective no complaints today. no chest pain no shortness of breath. TVP removed this morning Physical Exam Physical Exam: Constitutional: Comfortable NAD in chair HEENT: normocephalic atraumatic. MMM. CV: RRR nl s1,s2 no murmurs rubs or gallops Lungs: clear to auscultation bilaterally. no accessory muscle use Abd: soft nontender nondistended. normal bowel sounds Ext: no edema. no cyanosis, no clubbing Skin: warm dry Neuro: alert and oriented. moving all extremities Psych: normal mood and affect Results & Data Vital Signs (Past 12 Hours) Vital Signs Temp Pulse Resp BP Pulse Ox 03/01/19 09:00 70 23 95 03/01/19 08:34 67 27 H 95 03/01/19 08:01 75 21 148/73 H 96 03/01/19 08:00 75 25 H 96 03/01/19 07:30 74 15 94 03/01/19 07:01 59 L 19 138/68 94 03/01/19 07:00 61 19 94 03/01/19 06:45 62 20 93 03/01/19 06:00 71 16 143/81 H 94 03/01/19 05:01 62 18 111/67 93 03/01/19 04:01 58 L 15 131/83 94 03/01/19 03:01 62 17 162/68 H 94 03/01/19 02:01 65 10 L 149/78 H 96 03/01/19 01:01 61 18 158/65 H 94 03/01/19 00:01 36.8 C 66 27 H 142/75 H 94 02/28/19 23:08 70 02/28/19 23:01 66 18 135/72 93 04/28/19 22:01 70 18 102/65 91 Laboratory Results Laboratory Results - last 24 hr 02/27/19 02/28/19 02/28/19 19:40 09:07 09:07 WBC RBC Hgb Hct MCV MCH MCHC RDW Std Deviation RDW Coeff of Mariam Plt Count MPV Immature Gran % (Auto) Neut % (Auto) Lymph % (Auto) [place] % (Auto) Eos % (Auto) Baso % (Auto) Immature Gran # (Auto) Neut # (Auto) Lymph # (Auto) [place] # (Auto) Eos # (Auto) Baso # (Auto) Sodium 138 Potassium 3.8 Chloride 104 Carbon Dioxide 26 Anion Gap 8.0 BUN 14 Creatinine 0.96 Est Cr Clr Drug Dosing 101.3 Est GFR ( Amer) 90.5 Est GFR (Non-Af Amer) 78.1 BUN/Creatinine Ratio 14.5 Glucose 203 H POC Glucose Estimat Average Glucose 163 Hemoglobin A1c 7.3 H Calcium 8.8 Troponin I 61.300 H* Triglycerides 112 Cholesterol 200 LDL Cholesterol, Calc 132 VLDL Cholesterol, Calc 22 HDL Cholesterol 46 Cholesterol/HDL Ratio 4 02/28/19 02/28/19 02/28/19 11:16 16:16 20:53 WBC RBC Hgb Hct MCV MCH MCHC RDW Std Deviation RDW Coeff of Mariam Plt Count MPV Immature Gran % (Auto) Neut % (Auto) Lymph % (Auto) [place] % (Auto) Eos % (Auto) Baso % (Auto) Immature Gran # (Auto) Neut # (Auto) Lymph # (Auto) [place] # (Auto) Eos # (Auto) Baso # (Auto) Sodium Potassium Chloride Carbon Dioxide Anion Gap BUN Creatinine Est Cr Clr Drug Dosing Est GFR ( Amer) Est GFR (Non-Af Amer) BUN/Creatinine Ratio Glucose POC Glucose 184 H 183 H 167 H Estimat Average Glucose Hemoglobin A1c Calcium Troponin I Triglycerides Cholesterol LDL Cholesterol, Calc VLDL Cholesterol, Calc HDL Cholesterol Cholesterol/HDL Ratio 03/01/19 03/01/19 03/01/19 04:48 04:48 07:27 WBC 8.60 RBC 4.69 L Hgb 14.7 Hct 42.1 MCV 89.8 MCH 31.3 MCHC 34.9 RDW Std Deviation 42.8 RDW Coeff of Mariam 13.1 Plt Count 150 MPV 9.7 Immature Gran % (Auto) 0.2 Neut % (Auto) 69.5 Lymph % (Auto) 18.5 [place] % (Auto) 10.1 Eos % (Auto) 1.5 Baso % (Auto) 0.2 Immature Gran # (Auto) 0.02 Neut # (Auto) 5.97 Lymph # (Auto) 1.59 [place] # (Auto) 0.87 H Eos # (Auto) 0.13 Baso # (Auto) 0.02 Sodium 137 Potassium 3.6 Chloride 105 Carbon Dioxide 27 Anion Gap 5.0 BUN 16 Creatinine 0.81 Est Cr Clr Drug Dosing 120.0 Est GFR ( Amer) 102.2 Est GFR (Non-Af Amer) 88.2 BUN/Creatinine Ratio 20.2 H Glucose 153 H POC Glucose 152 H Estimat Average Glucose Hemoglobin A1c Calcium 8.5 Troponin I Triglycerides Cholesterol LDL Cholesterol, Calc VLDL Cholesterol, Calc HDL Cholesterol Cholesterol/HDL Ratio (1) ST elevation (STEMI) myocardial infarction Involved coronary artery: LAD coronary artery Qualified Code(s): I21.02 - ST elevation (STEMI) myocardial infarction involving left anterior descending coronary artery
--- NOTE | 2019-03-01 10:46 | Hospitalist Progress Note ---
Date of Service March 01, 2019 Assessment & Plan (1) ST elevation (STEMI) myocardial infarction: Presented to ED 02/27 with severe chest pain that occurred while mowing grass on riding mower. EKG demonstrated anterior STEMI. Heart Alert called. Cardiac cath demonstrated total occlusion of mid LAD. PCI with 3 drug-eluting stents performed with good results. Echo 02/28 showed small area of anterior lateral, apical and distal septal myocardium hypokinesis with overall LVEF 55-60%. Receiving aspirin, ticagrelor, metoprolol, lisinopril, atorvastatin. Increase activity. (2) AV block, postoperative: Temporary pacemaker inserted. No further bradyarrhythmias. Pacemaker wire removed. (3) Hypertension: Receiving lisinopril and metoprolol. Follow and titrate Rx. (4) Hypoxia: O2 sats low during the night of 02/27. No overt CHF on CXR 02/28. Considered sleep apnea and / or obesity hypoventilation syndrome. Nocturnal pulse oximetry night of 02/28 did not show any significant desaturation. (5) Hyperglycemia: History of prediabetes. Random glucose as high as 203. Hgb A1C = 7.3, so meets criteria for diagnosis of DM at this time. Receiving insulin coverage. Follow. Consider starting metformin at time of DC. (6) Dyslipidemia: Direct LDL = 140. Started on atorvastatin. (7) BPH (benign prostatic hypertrophy): Continue tamsulosin. (8) DVT prophylaxis: SQ enoxaparin. (9) Discharge planning issues: Anticipated discharge to home. Family Medicine follow-up with Dr. Christie. Subjective Recheck for STEMI and other problems. Patient seen in their room around 1010. Doing well. No chest pain. No cough or SOB. Oxygenating well on RA. Temporary pacer wire removed. Review of Systems: Constitutional- no fever. Cardiac- as noted above Pulmonary- as noted above GI- no nausea, vomiting, diarrhea, melena, hematochezia. - no urinary symptoms. Otherwise, as noted above. Physical Exam Constitutional: no acute distress Respiratory: normal respiratory effort, lungs clear to auscultation no respiratory distress Cardiovascular: Rate/Rhythm: regular rate and regular rhythm Heart Sounds: no gallop, no murmur and no cardiac rub Vessels: no JVD Extremities: no calf tenderness and no edema Gastrointestinal (Abdomen): normal bowel sounds, soft, nontender, no hepatosplenomegaly Skin: no rashes, warm and dry Psychiatric: Orientation: alert and oriented x 3 Results & Data Vital Signs (Past 12 Hours) Vital Signs Temp Pulse Resp BP Pulse Ox 03/01/19 09:00 70 23 95 03/01/19 08:34 67 27 H 95 03/01/19 08:01 75 21 148/73 H 96 03/01/19 08:00 75 25 H 96 03/01/19 07:30 74 15 94 03/01/19 07:01 59 L 19 138/68 94 03/01/19 07:00 61 19 94 03/01/19 06:45 62 20 93 03/01/19 06:00 71 16 143/81 H 94 03/01/19 05:01 62 18 111/67 93 03/01/19 04:01 58 L 15 131/83 94 03/01/19 03:01 62 17 162/68 H 94 03/01/19 02:01 65 10 L 149/78 H 96 03/01/19 01:01 61 18 158/65 H 94 03/01/19 00:01 36.8 C 66 27 H 142/75 H 94 02/28/19 23:08 70 02/28/19 23:01 66 18 135/72 93 (1) ST elevation (STEMI) myocardial infarction Involved coronary artery: LAD coronary artery Qualified Code(s): I21.02 - ST elevation (STEMI) myocardial infarction involving left anterior descending coronary artery
[2019-03-01] MEDS: INSULIN GLARGINE SOLOSTAR 100 UNITS/ML 3 ML PEN SC SCH (20:27)
--- OUTSIDE RECORDS SUMMARY | 2019-03-01 22:39 | External Medical Summary | Continuity of Care Document ---
:1945 Author Name Manish Jiménez, Provider Address Unavailable Unavailable , Care Team Providers Name Role Phone Unavailable Unavailable Unavailable Juan Jiménez, Hayden Pulido Unavailable [email or web address], UNKNOWN Unavailable Unavailable Unavailable Unavailable Unavailable Problems Benign prostatic hypertrophy with urinary obstruction (600.0 1) (N40.1) Arthritis (716.90) (M19.90) Hypercholesterolemia (272.0) (E78.00) Urinary frequency (788.41) (R35.0) Nocturia (788.43) (R35.1) Diverticulitis of colon (562.11) (K57.32) Acute bronchitis (466.0) (J20.9) Increased urinary frequency (788.41) (R35.0) Abdominal pain, LLQ (left lower quadrant) (789.04) (R10.32) Chest pain (786.50) (R07.9) Dysmetabolic syndrome X (277.7) (E88.81) Primary localized osteoarthrosis of the hip (715.15) (M16.10 ) Allergic rhinitis due to dust (477.8) (J30.89) Venous stasis (459.81) (I87.8) Essential hypertension (401.9) (I10) Morbid obesity (278.01) (E66.01) Fatty liver (571.8) (K76.0) Allergies and Adverse Reactions Levaquin TABS (Allergy) Reaction: Hives Status: Denied No Known Drug Allergies (Allergy) Medications Metoprolol Tartrate 50 MG Oral Tablet; T PEPITO 1 TABLET BY MOUTH DAILY IN THE MORNING Jessy Martinez Start: 15-Mar-2013 Quantity: 90 Refills: 3 Co Q-10 CAPS , M.D. Refills: 0 Resveratrol CAPS , M.D. Refills: 0 Vitamin C TABS , M.D. Refills: 0 Vitamin E 100 UNIT Oral Tablet , M.D. Refills: 0 Vitamin B Complex TABS , M.D. Refills: 0 Procedures History of Complete Colonoscopy Status: Completed Immunizations Immunizations not documented Family History Father Family history of Rheumatic Heart Disease Status: Active Unknown Family Member Family history of Hypertension (V17.49) Status: Active Comments: Family History Family history of Diabetes Mellitus (V18.0) Status: Active Comments: Family History Family history of Nephrolithiasis Status: Active Commen ts: Family History Social History - Smoking Status Never smoker Plan of Treatment Planned Observations Planned Goals not documented Results No Known Results Results not documented
--- OUTSIDE RECORDS SUMMARY | 2019-03-01 22:39 | External Medical Summary | Continuity of Care Document ---
:1945 Author Name Manish Jiménez, Provider Address Unavailable Unavailable , Care Team Providers Name Role Phone Unavailable Unavailable Unavailable Juan Jiménez, Hayden Pulido Unavailable [email or web address] [place], UNKNOWN Unavailable Unavailable Unavailable Unavailable Unavailable Problems Abdominal pain, LLQ (left lower quadrant) (789.04) (R10.32) Increased urinary frequency (788.41) (R35.0) Acute bronchitis (466.0) (J20.9) Diverticulitis of colon (562.11) (K57.32) Nocturia (788.43) (R35.1) Morbid obesity (278.01) (E66.01) Essential hypertension (401.9) (I10) Venous stasis (459.81) (I87.8) Allergic rhinitis due to dust (477.8) (J30.89) Primary localized osteoarthrosis of the hip (715.15) (M16.10 ) Dysmetabolic syndrome X (277.7) (E88.81) Chest pain (786.50) (R07.9) Urinary frequency (788.41) (R35.0) Hypercholesterolemia (272.0) (E78.00) Arthritis (716.90) (M19.90) Benign prostatic hypertrophy with urinary obstruction (600.0 1) (N40.1) Fatty liver (571.8) (K76.0) Allergies and Adverse [...]
[2019-03-02] MEDS: CEFAZOLIN 2000MG 2,000 MG/15 ML SYR IV SCH (05:35)
[2019-03-02] MEDS: ENOXAPARIN INJ 40 MG/0.4 ML SYR SQ SCH (07:39)
[2019-03-02] MEDS: TICAGRELOR 90 MG TAB PO SCH (07:40)
[2019-03-02] MEDS: INSULIN GLARGINE SOLOSTAR 100 UNITS/ML 3 ML PEN SC SCH (07:41)
[2019-03-02] MEDS: ASPIRIN 81 MG ECTAB PO SCH (07:41)
[2019-03-02] MEDS: METOPROLOL TARTRATE 25 MG TAB PO SCH (07:41)
[2019-03-02] MEDS: ATORVASTATIN 40 MG TAB PO SCH (07:41)
[2019-03-02] MEDS: TAMSULOSIN HCL 0.4 MG CAP PO SCH (07:41)
[2019-03-02] MEDS: INSULIN ASPART 100 UNITS/ML 3 ML PEN SC SCH ×2 (07:42→11:49)
[2019-03-02] MEDS ORDERED: LISINOPRIL 10 MG TAB PO SCH (09:00)
--- NOTE | 2019-03-02 10:31 | Cardiology Progress Note ---
Date of Service March 02, 2019 Assessment & Plan (1) ST elevation (STEMI) myocardial infarction: The patient will be discharged today to outpatient follow-up. I will arrange that follow-up visit. (2) Hypertension: Better controlled today. (3) Obesity: He should be evaluated as an outpatient for sleep apnea as an outpatient. (4) Diabetes: Medicine to start the patient on metformin prior to discharge and then he will have a follow-up with his primary care. Subjective The patient had an uneventful night. No current complaints. I reviewed his medications with him. He will be ready for discharge today. Review of Systems Review of Systems: All systems reviewed & are unremarkable except as noted in HPI & below Unchanged Physical Exam Physical Exam: General: no acute distress and stated age Head: normocephalic, no masses, lesions, tenderness or abnormalities Eyes: conjunctiva are pink and non-injected, sclera clear Neck: supple, no adenopathy, no bruits, normal jugular venous pulse, no hepatojugular reflux Chest: normal shape and normal respiratory effort Lungs: clear to auscultation and percussion Cardiac Exam: - regular rate & rhythm, no murmurs gallops or rubs - normal S1, normal S2 Pulses: 2(+) throughout Abdomen: abdomen soft, non-tender, no abnormal masses and no hepatosplenomegaly Musculoskeletal: no gait disturbance, no joint inflammation, no deforming arthritis Extremities: no edema and no cyanosis Neuro: grossly normal exam Results & Data Vital Signs (Past 12 Hours) Vital Signs Temp Pulse Pulse Resp BP BP Pulse Ox 03/02/19 07:57 37 C 77 16 114/72 97 03/02/19 03:12 37.0 C 63 18 122/73 95 03/02/19 00:00 69 03/01/19 23:12 36.9 C 67 18 126/67 94 Laboratory Results Laboratory Results - last 24 hr 03/01/19 03/01/19 03/01/19 11:42 16:05 20:10 POC Glucose 142 H 135 H 126 H 03/02/19 07:34 POC Glucose 153 H Medications Administered Current Inpatient Medications Acetaminophen (Tylenol) 650 mg PO Q4H PRN PRN Reason: Mild Pain (scale 1-3) Stop: 03/29/19 18:56 Aspirin ([facility]rin Ectab) [facility] [place]: 03/30/19 08:59 Last Admin: 03/02/19 07:41 Dose: 81 mg Documented by: Atorvastatin Calcium (Lipitor) 80 mg PO QAM [facility] Stop: 03/30/19 08:59 Last Admin: 03/02/19 07:41 Dose: 80 mg Documented by: Dextrose (Dextrose 50%) 25 - 50 ml IV UD PRN; Protocol PRN Reason: Hypoglycemia Protocol Stop: 03/30/19 04:30 Enoxaparin Sodium (Lovenox) 40 mg SQ QAM [facility] Stop: 03/30/19 08:59 Last Admin: 03/02/19 07:39 Dose: 40 mg Documented by: Glucagon (Glucagen) 1 mg SQ UD PRN; Protocol PRN Reason: Hypoglycemia Protocol Stop: 03/30/19 04:30 Glucose (Dex4 Glucose) 4 - 8 tabs PO UD PRN; Protocol PRN Reason: Hypoglycemia Protocol Stop: 03/30/19 04:30 Glucose (Glucose 40%) 15 - 30 gm PO UD PRN; Protocol PRN Reason: Hypoglycemia Protocol Stop: 03/30/19 04:30 Promethazine HCl 12.5 mg/ (Sodium Chloride) 50.5 mls @ 202 mls/hr IV Q6H PRN PRN Reason: Nausea And Vomiting Stop: 03/29/19 19:48 Cefazolin Sodium (Ancef 2000mg) 2,000 mg in 15 mls @ 3.75 mls/min IV Q8H [facility] Stop: 03/02/19 12:59 Last Admin: 03/02/19 05:35 Dose: 3.75 mls/min Documented by: Insulin Aspart (Novolog Flexpen) 0 units SC ACHS [facility] Stop: 03/30/19 04:34 Last Admin: 03/02/19 07:42 Dose: 4 units Documented by: Insulin Glargine (Lantus Solostar Pen) 10 units SC BID [facility] Stop: 03/31/19 20:59 Last Admin: 03/02/19 07:41 Dose: 10 units Documented by: Lisinopril (Zestril) 10 mg PO QAM [facility] Stop: 04/01/19 08:59 Last Admin: 03/02/19 07:40 Dose: 10 mg Documented by: Metoprolol Tartrate (Lopressor) 25 mg PO BID [facility] Stop: 03/30/19 08:59 Last Admin: 03/02/19 07:41 Dose: 25 mg Documented by: Miscellaneous (Carbohydrates For Hypoglycemia) 15 - 30 gm PO UD PRN PRN Reason: Hypoglycemia Treatment Stop: 03/30/19 04:30 Morphine Sulfate (Morphine Sulfate) 4 mg IV Q4H PRN PRN Reason: Pain Stop: 03/13/19 19:48 Nitroglycerin (Nitrostat) 0.4 mg SL UD PRN PRN Reason: Chest Pain Stop: 03/29/19 16:58 Last Admin: 02/27/19 19:52 Dose: 0.4 mg Documented by: Tamsulosin HCl (Flomax) 0.4 mg PO DAILY [facility] Stop: 03/29/19 19:14 Last Admin: 03/02/19 07:41 Dose: 0.4 mg Documented by: Ticagrelor (Brilinta) 90 mg PO BID [facility] Stop: 03/30/19 08:59 Last Admin: 03/02/19 07:40 Dose: 90 mg Documented by: Tramadol HCl (Ultram) 25 - 50 mg PO Q4H PRN PRN Reason: Pain Stop: 03/29/19 19:48 (1) ST elevation (STEMI) myocardial infarction Involved coronary artery: LAD coronary artery Qualified Code(s): I21.02 - ST elevation (STEMI) myocardial infarction involving left anterior descending coronary artery
--- NOTE | 2019-03-02 11:28 | Hospitalist Progress Note ---
Date of Service March 02, 2019 Assessment & Plan (1) ST elevation (STEMI) myocardial infarction: Presented to ED 02/27 with severe chest pain that occurred while mowing grass on riding mower. EKG demonstrated anterior STEMI. Heart Alert called. Cardiac cath demonstrated total occlusion of mid LAD. PCI LAD with 3 drug-eluting stents performed with good results. Echo 02/28 showed small area of anterior lateral, apical and distal septal myocardium hypokinesis with overall LVEF 55-60%. Continue aspirin, ticagrelor, metoprolol, lisinopril, atorvastatin. Cardiac rehab to be arranged. (2) AV block, postoperative: Temporary pacemaker inserted after cath for bradyarrhythmias. Had no further bradyarrhythmias. Pacemaker wire removed. (3) Hypertension: Receiving lisinopril and metoprolol. Follow and titrate Rx. (4) Hypoxia: O2 sats low during the night of 02/27. No overt CHF on CXR 02/28. Considered sleep apnea and / or obesity hypoventilation syndrome. Nocturnal pulse oximetry night of 02/28 did not show any significant desaturation. Outpatient sleep study recommended. (5) Hyperglycemia: History of prediabetes. Random glucose as high as 203. Hgb A1C = 7.3, so meets criteria for diagnosis of DM at this time. Received insulin coverage. Discharge on metformin 500 mg daily with lunch. Outpt diabetes management / eductaion. (6) Dyslipidemia: Direct LDL = 140. Started on atorvastatin. (7) BPH (benign prostatic hypertrophy): Continue tamsulosin. (8) DVT prophylaxis: SQ enoxaparin. Ambulating. (9) Discharge planning issues: Discharge to home. Family Medicine follow-up with Dr. Christie. Cardiology follow-up with Dr. Mon. Subjective Recheck for STEMI and other problems. Patient seen in their room around 1130. Doing well. No chest pain. No cough or SOB. Review of Systems: Constitutional- no fever. Cardiac- as noted above Pulmonary- as noted above GI- no nausea, vomiting, diarrhea, melena, hematochezia. - no urinary symptoms. Otherwise, as noted above. Physical Exam Constitutional: no acute distress Respiratory: normal respiratory effort, lungs clear to auscultation no respiratory distress Cardiovascular: Rate/Rhythm: regular rate and regular rhythm Heart Sounds: no gallop, no murmur and no cardiac rub Vessels: no JVD Extremities: no calf tenderness and no edema Gastrointestinal (Abdomen): normal bowel sounds, soft, nontender, no hepatosplenomegaly Skin: no rashes, warm and dry Psychiatric: Orientation: alert and oriented x 3 Results & Data Vital Signs (Past 12 Hours) Vital Signs Temp Pulse Pulse Resp BP BP Pulse Ox 03/02/19 11:26 36.9 C 66 18 118/61 95 03/02/19 07:57 37 C 77 16 114/72 97 03/02/19 03:12 37.0 C 63 18 122/73 95 03/02/19 00:00 69 Laboratory Results Laboratory Results - last 24 hr 03/02/19 03/02/19 07:34 11:25 POC Glucose 153 H 125 H (1) ST elevation (STEMI) myocardial infarction Involved coronary artery: LAD coronary artery Qualified Code(s): I21.02 - ST elevation (STEMI) myocardial infarction involving left anterior descending coronary artery
--- NOTE | 2019-03-02 21:33 | Discharge Summary ---
Date of Service Date of Admission: 02/27/19 Date of Discharge: 03/02/19 Admission HPI Per Admitting Provider History obtained from patient, family, and records. Medical history significant for hypertension, BPH, arthritis, prediabetes as per records. Recent confinement November 2016 headache, dizziness symptoms. Patient was mowing his lawn this afternoon when he experienced sharp left-sided chest pain with some radiation to the neck. No shortness of breath, no cough symptoms. Incomplete relief of pain with aspirin and nitroglycerin by EMS en route to the hospital. ST elevation noted on the anterior leads on EKG. Heart alert called upon arrival at the ER. Patient underwent emergent cardiac catheterization and PCI. Hypotension and bradycardia status post atropine administration as per [employer]. Patient currently at ICU still complaining of chest pain. Admission Exam Per Admitting Provider GENERAL: Slightly anxious, obese , no respiratory distress SKIN: Normal color, warm HEENT: [place] palpebral conjunctivae, no ptosis, dry buccal mucosa NECK : Supple, short neck, no tenderness CHEST : CTA, no tenderness HEART : RRR, no obvious murmurs ABDOMEN: distention, nontender EXTREMITIES : Minimal LE swelling, no tenderness, no other conspicuous deformities noted NEUROLOGIC : Coherent, no facial asymmetry, no other gross focality Principal Diagnosis ST elevation MA mid LAD occlusion hypertension dyslipidemia DM type 2 (newly diagnosed) Discharge Data Allergies Allergy/AdvReac Type Severity Reaction Status Date / Time levofloxacin Allergy Intermediate HIVES Verified 02/27/19 19:13 Consultations 02/27/19 17:22 ED Decision to Admit Stat 02/27/19 18:43 Consult Case Management - Discharge Planning Routine Consult Internal Medicine Routine 02/27/19 18:46 Consult Graining Press Operator Routine 02/28/19 09:03 Consult Cardiology Routine 03/01/19 09:38 Consult Cardiac Rehabilitation Routine Procedures Performed Operation Date: 02/27/19 17:20 Actual Procedures p Aspiration/PCI w/CHEL for Stemi - David Olvera MD s Cath, Left with Cors and Vent - David Olvera MD s Cineradiography w/Routine Exam - David Olvera MD Operation Date: 02/27/19 20:20 Actual Procedures p Ins/RemTemporary Transvenous Pacer - David Olvera MD s Cineradiography w/Routine Exam - David Olvera MD Ordered Studies 02/27/19 17:18 CL Cath Imgs for PACS use only Stat 02/27/19 20:04 CL Cath Imgs for PACS use only Stat Hospital Course (1) ST elevation (STEMI) myocardial infarction: Presented to ED 02/27 with severe chest pain that occurred while mowing grass on riding mower. EKG demonstrated anterior STEMI. Heart Alert called. Cardiac cath demonstrated total occlusion of mid LAD. PCI LAD with 3 drug-eluting stents performed with good results. Echo 02/28 showed small area of anterior lateral, apical and distal septal myocardium hypokinesis with overall LVEF 55-60%. Continue aspirin, ticagrelor, metoprolol, lisinopril, atorvastatin. Cardiac rehab to be arranged. (2) AV block, postoperative: Temporary pacemaker inserted after cath for bradyarrhythmias. Had no further bradyarrhythmias. Pacemaker wire removed. (3) Hypertension: Receiving lisinopril and metoprolol. Follow and titrate Rx. (4) Hypoxia: O2 sats low during the night of 02/27. No overt CHF on CXR 02/28. Considered sleep apnea and / or obesity hypoventilation syndrome. Nocturnal pulse oximetry night of 02/28 did not show any significant desaturation. Outpatient sleep study recommended. (5) Hyperglycemia: History of prediabetes. Random glucose as high as 203. Hgb A1C = 7.3, so meets criteria for diagnosis of DM at this time. Received insulin coverage. Discharge on metformin 500 mg daily with lunch. Outpt diabetes management / eductaion. (6) Dyslipidemia: Direct LDL = 140. Started on atorvastatin. (7) BPH (benign prostatic hypertrophy): Continue tamsulosin. (8) DVT prophylaxis: SQ enoxaparin. Ambulating. (9) Discharge planning issues: Discharge to home. Family Medicine follow-up with Dr. Christie. Cardiology follow-up with Dr. Mon. Total Time Total Time Spent Total Time Spent (In Minutes): 45 Discharge Plan Discharge Items Patient Disposition: Home - Self-Care Reason For Visit: chest pain Discharge Diagnosis: myocardial infarction (heart attack) Condition: Good Discharge Goals: Improve disease control Activity: Per 'Additional Instructions' section Activity Comment: light activity, gradually increase activity as tolerated Non-emergency contact: Primary Care Provider, Hospitalist and [employer]mediate [employer] Teacher Call non-emergency contact if: you have any medication questions and your symptoms worsen Follow-up/Referrals: Joseph Christie MD [Primary Care Provider] - (03/05/2019 12:40 PM Joseph Christie MD [facility]) Matthew Mon DO [[employer] Teacher] - (Office will contact you with appointment.) Diet: Carb Consistent or DM2 and Heart Healthy Addtl Provider Instructions: It is very important that you take aspirin and Brilinta daily as instructed until otherwise instructed by Cardiology. Metoprolol (Lopressor) and lisinopril (Zestril or Prinivil) help your heart work more efficiently after a heart attack. Your LDL cholesterol was Take atorvastatin (Lipitor) to lower cholesterol and help prevent heart attacks and strokes. Your blood sugars were as high as 203. Hemoglobin A1C level was 7.3. You have diabetes. Start metformin (Glucophage) [address] Christie will monitor and provide additional guidance. Seek medical attention if you have: * temperature above 101 * chest pain, chest pressure, or trouble breathing * abdominal pain, nausea, vomiting * diarrhea, dark stools or bloody stools * any unanswered questions or concerns Call 911 if symptoms are severe. Call if you have any questions or problems. My cell # is [phone]. You can also reach a [facility] hospitalist on duty at [facility] 24 hours a day by calling [phone]. Prescriptions: New lisinopril [Zestril] 10 mg Tablet 10 mg PO QAM Qty: 30 RF: 5 metoprolol tartrate 25 mg Tablet 25 mg PO BID Qty: 60 RF: 5 Brilinta 90 mg Tablet 90 mg PO BID Qty: 30 RF: 5 aspirin 81 mg tablet,chewable 81 mg PO DAILY Qty: 30 RF: 12 atorvastatin 80 mg tablet 80 mg PO DAILY Qty: 30 RF: 5 metformin 500 mg tablet 500 mg PO DAILY Qty: 30 RF: 5 nitroglycerin [Nitrostat] 0.4 mg tablet, sublingual 0.4 mg Sublingual Q5M PRN (Reason: chest pain) Qty: 25 RF: 1 Continued tamsulosin 0.4 mg capsule 0.4 mg PO DAILY RF: 0 Stand-Alone Forms: My [facility] Discharge Orders: Discharge Order (Routine); Ordered 03/02/19 Ordered By: Hayden Barajas Admission Data Admit Date/Time: 02/27/19 18:45 Attending Provider: Hayden Barajas Admit Provider: Hayden Barajas Primary Care Provider: Joseph Christie Other Providers: Matthew Mon Pooja S ; Viv Puckett Service: Intensive Care Unit Other Interventions: Discharge Summary Assessment (RN) Last Done: 03/02/19 12:12 DC Date/Time DO NOT enter until pt leaves facility: 03/02/19 12:46
== END 2019-03-02 12:46 | disposition home or self-care (01) | DRG 246 ==
LOC: ED 16:54 → CC 17:45 → 1E 18:45 → 2E 03-01 12:12

== ENCOUNTER 2022-09-05 09:23 | Observation (INO) ==
--- NOTE | 2022-09-05 09:50 | Emergency Department Note ---
History of Present Illness General Chief complaint: Chest Pain Stated complaint: CHEST PAIN, REFERRED BY DR Montesinos Seen by Provider: 09/05/22 09:36 Source: patient Mode of arrival: ambulatory Limitations: no limitations History of Present Illness Provider complaint: chest pain Onset (ago): day(s) 1 Location: chest Maximum Pain Intensity: 5 This is a 77-year-old male presents emergency department complaining of chest pain. 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 Patient states he does have a prior history of blockages and has several stents. He states he follows with Dr. Mon regularly, he believes the last time he saw him was around 6 months ago. He denies any recent change in activity, medications, and no recent illness. He states he began noticing intermittent central to right slightly left-sided chest pain that began yesterday. He did not notice any particular correlation with exertion. He states several episodes did happen after eating. He states several episodes would resolve on their own from anywhere to 20 minutes to an hour after onset. He states several times he did take a nitro though which would help it resolve quicker. He states he took a total of 3 nitroglycerin tablets at home. Patient denies any nausea, dizziness, diaphores is, shortness of breath accompanying his pain. He denies any recent change in urine or stools. No recent leg swelling. Home Medications Medication Instructions Recorded Confirmed Type tamsulosin 0.4 mg capsule 0.4 mg PO DAILY 02/27/19 09/05/22 History aspirin 81 mg chewable tablet 81 mg PO DAILY #30 tabs 03/02/19 09/05/22 Rx metoprolol tartrate 25 mg tablet 25 mg PO BID #60 tabs 03/02/19 09/05/22 Rx nitroglycerin 0.4 mg sublingual 0.4 mg sublingual Q5M PRN chest 03/02/19 09/05/22 Rx tablet (Nitrostat) pain #25 tabs Allergies Allergy/AdvReac Type Severity Reaction Status Date / Time levofloxacin Allergy Intermediate HIVES Verified 05/02/20 08:19 Past Med/Surg History Medical History Bilateral primary osteoarthritis of knee BPH (benign prostatic hypertrophy) Coronary artery disease STEMI 02/27/19, s/p PCI LAD w 3 drug-eluting stents Diabetes mellitus type 2 with complications Dyslipidemia Hypertension Obesity Status post insertion of drug-eluting stent into left anterior descending (LAD) artery 3 drug-eluting stents LAD 02/27/19 Surgical History H/O cataract removal with insertion of prosthetic lens History of total left hip arthroplasty "2012; Dr. Hines" Family History Other Heart disease Social History Smoking Status: Never smoker Hx Alcohol Use: No Hx Substance Use: No Preferred Language: Serbian Communication Ability: Effective Contracts Specialist Required: No Beliefs That Will Affect Care: None Current Living Situation: Spouse Other Information That Helps Us Care for You: No Feels Safe at Home: Yes Safety Concerns: Feels Safe At This Time Assistive Devices: Glasses Review of Systems A total of 10 systems reviewed and were otherwise negative All systems reviewed & are unremarkable except as noted in HPI & below Physical Exam Vital Signs Vital Signs - 24 hr 09/05/22 09:28 09/05/22 09:50 09/05/22 11:20 Temperature 36.6 C Temperature Source Temporal Artery Scan Pulse Rate 55 L 54 L Pulse Rate from SpO2 Sensor 54 L Respiratory Rate 18 25 H Respiratory Effort / Characteristics Non-Labored Spontaneous Non-Labored Spontaneous Respiratory Depth Normal Normal Respiratory Pattern Regular Blood Pressure 154/82 H 132/74 Blood Pressure Mean 106 93 Blood Pressure Position Sitting Pulse Oximetry 99 98 Oxygen Delivery Method Room Air Room Air Sepsis Recent Fever Within 48 Hours No Sepsis New/Unexplained Change in Mental Status N/A Sepsis Action Taken by Nursing No Action Required GENERAL: alert, well appearing, well nourished, no distress, non-toxic EYE EXAM: normal conjunctiva, PERRL and EOM's grossly intact OROPHARYNX: no exudate, no erythema, lips, buccal mucosa, and tongue normal and mucous membranes are moist NECK: supple, no nuchal rigidity, no adenopathy, non-tender LUNGS: Clear to auscultation. Normal chest wall mechanics, no w/r/r HEART: no murmurs, S1 normal and S2 normal, no reproducible chest wall tenderness with palpation ABDOMEN: abdomen soft, non-tender, normo-active bowel sounds, no masses, no rebound or guarding. BACK: Back is symmetrical on inspection and there is no deformity, no midline tenderness, no CVA tenderness. SKIN: no rashes and no bruising UPPER EXTREMITIES: upper extremities are grossly normal. FROM, nml pulses b/l. LOWER EXTREMITIES: No pitting edema. FROM, nml pulses b/l. NEURO EXAM: Normal sensorium, cranial nerves II-XII grossly intact, normal speech, no gross weakness of arms, no gross weakness of legs. Gross sensation intact. Course Course 1102: No recurrence of pain. Patient updated on results and plan. 1120: Discussed with Dr. Ferrer cardiology. Agrees with plan for heparin. Patient should remain n.p.o. as he will likely need cardiac catheterization. Administered Medications Heparin Sodium/Dextrose (Heparin Sodium/Dextrose) 25,000 units in 500 mls @ 20 mls/hr IV .Q24H [facility]; Protocol Stop: 10/05/22 11:44 Last Admin: 09/05/22 12:14 Dose: 1,000 units/hr, 20 mls/hr Documented By: LINDA Co-signed By: DEYANIRA Discontinued Medications Acetaminophen (Acetaminophen 325 Mg Tab) Confirm Administered Dose 650 mg .ROUTE .STK-MED ONE Stop: 09/05/22 14:34 Last Admin: 09/05/22 14:36 Dose: 650 mg Documented By: VIOLETA Fentanyl Citrate (Fentanyl Citrate 100 Mcg/2 Ml Vial) Confirm Administered Dose 100 mcg .ROUTE .STK-MED ONE Stop: 09/05/22 13:11 Last Increment: 09/05/22 13:54 Dose: 40 mcg Documented By: MSD Fentanyl Citrate (Fentanyl Citrate 100 Mcg/2 Ml Vial) Confirm Administered Dose 100 mcg .ROUTE .STK-MED ONE Stop: 09/05/22 14:52 Last Admin: 09/05/22 15:59 Dose: Not Given Documented By: JESUS Heparin Sodium (Porcine) (Heparin Sod (Porcine) 1000 Unit/Ml) 1 units IV NOW ONE Stop: 09/05/22 11:38 Last Admin: 09/05/22 12:13 Dose: 4,000 units Documented By: LINDA Co-signed By: DEYANIRA Heparin Sodium (Porcine) (Heparin (Porcine) 1000 Unit/Ml 10 Ml (Computer Hardware Engineer Use Only)) Confirm Administered Dose 10,000 units .ROUTE .STK-MED ONE Stop: 09/05/22 13:11 Last Admin: 09/05/22 13:54 Dose: 10,000 units Documented By: VIOLETA Midazolam HCl (Midazolam Hcl 1 Mg/Ml 2ml Vial) Confirm Administered Dose 2 mg .ROUTE .STK-MED ONE Stop: 09/05/22 13:11 Last Admin: 09/05/22 13:54 Dose: 2 mg Documented By: VIOLETA Nicardipine HCl (Nicardipine Hcl Inj 2.5 Mg/Ml 10 Ml Amp) Confirm Administered Dose 25 mg .ROUTE .STK-MED ONE Stop: 09/05/22 13:11 Last Admin: 09/05/22 13:54 Dose: 25 mg Documented By: ERIC Nitroglycerin/Dextrose (Nitroglycerin/D5w 100mcg/Ml 20ml Syr) Confirm Administered Dose 2,000 mcg .ROUTE .STK-MED ONE Stop: 09/05/22 13:12 Last Admin: 09/05/22 13:54 Dose: 2,000 mcg Documented By: ERIC Ticagrelor (Ticagrelor 90 Mg Tab) Confirm Administered Dose 180 mg .ROUTE .STK- MED ONE Stop: 09/05/22 13:56 Last Admin: 09/05/22 14:09 Dose: 180 mg Documented By: VIOLETA Medical Decision Making Differential Diagnosis Differential diagnoses includes but is not limited to acute coronary syndrome, myocardial infarction, pericarditis, pulmonary embolus, aortic dissection, pneumonia, pneumothorax, musculoskeletal, shingles, esophageal. Medical Records Attestation: I reviewed the patient's medical records. Home Medications Current Medication List: was personally reviewed by me Laboratory Data Attestation: I reviewed the patient's lab results. Result diagrams: 09/05/22 09:39 09/05/22 09:39 Lab Results 09/05/22 09/05/22 09/05/22 Range/Units 09:39 09:39 09:39 WBC 5.89 (4.8-10.8) K/ul RBC 4.81 (4.63-6.08) M/uL Hgb 15.1 (14.0-18.0) g/dl Hct 44.2 (40.1-51.0) % MCV 91.9 (80.0-100.0) fL MCH 31.4 (25.0-34.0) pg MCHC 34.2 (32.0-36.0) g/dL RDW Std Deviation 42.0 (36.4-46.3) fL RDW Coeff of Mariam 12.5 (11.5-14.5) % Plt Count 166 (130-400) K/uL MPV 9.5 (9.4-12.4) fL Immature Gran % (Auto) 0.3 % Neut % (Auto) 40.9 % Lymph % (Auto) 42.6 % King % (Auto) 12.2 % Eos % (Auto) 3.7 % Baso % (Auto) 0.3 % Neut # (Auto) 2.40 (1.4-6.5) K/uL Lymph # (Auto) 2.51 (1.2-3.4) K/uL King # (Auto) 0.72 (0.24-0.82) K/uL Eos # (Auto) 0.22 (0-0.50) K/uL Baso # (Auto) 0.02 (0-0.2) K/uL Immature Gran # (Auto) 0.02 (0.00-0.02) K/uL PT 11.1 (9.0-12.0) Seconds INR 1.0 (0.9-1.1) APTT (21.0-31.0) Seconds PTT Ratio Sodium 138 (136-145) mmol/L Potassium 4.3 (3.5-5.1) mmol/L Chloride 105 (98-107) mmol/L Carbon Dioxide 28 (21-32) mmol/L Anion Gap 5 (3-11) BUN 18 (6-23) mg/dl Creatinine 0.91 (0.6-1.4) mg/dl Est Cr Clr Drug Dosing 96.6 ml/min Est GFR ( Amer) 93.9 ml/min Est GFR (Non-Af Amer) 81.0 ml/min BUN/Creatinine Ratio 19.8 (10-20) Glucose 116 H (70-99(Fasting)) mg/dl Calcium 9.5 (8.5-10.1) mg/dl Magnesium 2.0 (1.7-2.4) mg/dl Total Bilirubin 0.9 (0.2-1.0) mg/dl AST 21 (13-39) U/L ALT 13 (7-52) U/L Alkaline Phosphatase 61 (34-104) U/L Troponin I High Sens 1843.0 H* (0-20) pg/ml Total Protein 7.5 (6.0-8.3) gm/dl Albumin 4.0 (3.4-5.0) gm/dl Globulin 3.5 (2.5-4.0) gm/dl Albumin/Globulin Ratio 1.1 (0.9-2) Lipase 27 (11-82) U/L SARS-CoV-2, RNA, NAAT (NEGATIVE) 09/05/22 09/05/22 Range/Units 09:39 11:20 WBC (4.8-10.8) K/ul RBC (4.63-6.08) M/uL Hgb (14.0-18.0) g/dl Hct (40.1-51.0) % MCV (80.0-100.0) fL MCH (25.0-34.0) pg MCHC (32.0-36.0) g/dL RDW Std Deviation (36.4-46.3) fL RDW Coeff of Mariam (11.5-14.5) % Plt Count (130-400) K/uL MPV (9.4-12.4) fL Immature Gran % (Auto) % Neut % (Auto) % Lymph % (Auto) % King % (Auto) % Eos % (Auto) % Baso % (Auto) % Neut # (Auto) (1.4-6.5) K/uL Lymph # (Auto) (1.2-3.4) K/uL King # (Auto) (0.24-0.82) K/uL Eos # (Auto) (0-0.50) K/uL Baso # (Auto) (0-0.2) K/uL Immature Gran # (Auto) (0.00-0.02) K/uL PT (9.0-12.0) Seconds INR (0.9-1.1) APTT 31.9 H (21.0-31.0) Seconds PTT Ratio 1.2 Sodium (136-145) mmol/L Potassium (3.5-5.1) mmol/L Chloride (98-107) mmol/L Carbon Dioxide (21-32) mmol/L Anion Gap (3-11) BUN (6-23) mg/dl Creatinine (0.6-1.4) mg/dl Est Cr Clr Drug Dosing ml/min Est GFR ( Amer) ml/min Est GFR (Non-Af Amer) ml/min BUN/Creatinine Ratio (10-20) Glucose (70-99(Fasting)) mg/dl Calcium (8.5-10.1) mg/dl Magnesium (1.7-2.4) mg/dl Total Bilirubin (0.2-1.0) mg/dl AST (13-39) U/L ALT (7-52) U/L Alkaline Phosphatase (34-104) U/L Troponin I High Sens (0-20) pg/ml Total Protein (6.0-8.3) gm/dl Albumin (3.4-5.0) gm/dl Globulin (2.5-4.0) gm/dl Albumin/Globulin Ratio (0.9-2) Lipase (11-82) U/L SARS-CoV-2, RNA, NAAT NEGATIVE (NEGATIVE) Imaging Data Radiologist's Impression: Chest X-Ray 09/05/22 09:47 XR chest 1V portable HISTORY: 77 years-old Male chest pain acute chest pain COMPARISON: Chest radiograph 02/28/2019 TECHNIQUE: AP view of the chest FINDINGS: Cardiac silhouette is enlarged. No pneumothorax, pleural effusion, airspace consolidation or overt pulmonary edema. Unchanged right hemidiaphragmatic elevation. Mild chronic interstitial coarsening of the lung bases. IMPRESSION: No acute process. ACT 112: Negative or not required by law. The above report was generated using voice recognition software. It may contain grammatical, syntax or spelling errors. Electronically signed by: Nick Oglesby M.D. 09/05/2022 10:10 AM ECG Data Attestation: I personally reviewed and interpreted this ECG as follows: Indication: + chest pain Rate (beats per minute): 55 Rhythm: + sinus bradycardia ECG Intervals/blocks: + First degree AV block, + Right Bundle branch block and + Normal QT ECG [place]: + Normal ECG ST segments: + Nonspecific ST abnormalities MDM Narrative An order was placed for continuous cardiac monitoring. The monitor shows a rate of _60_ with _normal sinus_ rhythm. This is a 77-year-old male presents emergency department due to concern for intermittent chest pain that began yesterday. Labs drawn and sent, EKG and chest x-ray performed. Patient was afebrile and hemodynamically stable. He had no chest pain during my initial as well as subsequent evaluations while in the emergency room. Patient found to have a markedly elevated troponin. Given history of CAD with prior stenting, I discussed the case with on-call cardiology who was in agreement with plan for heparin drip and more urgent cardiology evaluation. Case discussed with hospitalist for additional management. Patient and made aware of all results, verbalized understanding. At this time I do not suspect other vascular or infectious etiology of his chest pain. Impression & Plan Chest pain, Hypertension, Obesity, Elevated troponin Discharge Plan Visit Data Chief Complaint: Chest Pain Stated Complaint: CHEST PAIN, REFERRED BY ED Provider: Mounika Farrell Discharge Problem: Chest pain, Hypertension, Obesity, Elevated troponin Discharge Instructions Interventions: ED Discharge Assessment Last Done: 09/05/22 12:44
[2022-09-05 10:07] LABS: Basophils # (auto) 0.02 K/uL (0-0.2); Basophils % (auto) 0.3 %; Eosinophils # (auto) 0.22 K/uL (0-0.50); Eosinophils % (auto) 3.7 %; Hematocrit (blood only) 44.2 % (40.1-51.0); Hemoglobin 15.1 g/dl (14.0-18.0); Immature Granulocytes # (auto) 0.02 K/uL (0.00-0.02); Immature Granulocytes % (auto) 0.3 %; Lymphocytes # (auto) 2.51 K/uL (1.2-3.4); Lymphocytes % (auto) 42.6 %; Mean Corpuscular Hemoglobin 31.4 pg (25.0-34.0); Mean Corpuscular Hgb Conc 34.2 g/dL (32.0-36.0); Mean Corpuscular Volume 91.9 fL (80.0-100.0); Mean Platelet Volume 9.5 fL (9.4-12.4); Monocytes # (auto) 0.72 K/uL (0.24-0.82); Monocytes % (auto) 12.2 %; Neutrophils % (auto) 40.9 %; Platelet Count 166 K/uL (130-400); RDW Coefficient of Variation 12.5 % (11.5-14.5); Red Blood Count 4.81 M/uL (4.63-6.08); White Blood Count 5.89 K/ul (4.8-10.8)
--- NOTE | 2022-09-05 10:12 | XRay Report ---
XR chest 1V portable HISTORY: 77 years-old Male chest pain acute chest pain COMPARISON: Chest radiograph 02/28/2019 TECHNIQUE: AP view of the chest FINDINGS: Cardiac silhouette is enlarged. No pneumothorax, pleural effusion, airspace consolidation or overt pu lmonary edema. Unchanged right hemidiaphragmatic elevation. Mild chronic interstitial coarsening of t he lung bases. IMPRESSION: No acute process. ACT 112: Negative or not required by law. The above report was generated using voice recognition software. It may contain grammatical, syntax o r spelling errors. Electronically signed by: Nick Oglesby M.D. 09/05/2022 10:10 AM
[2022-09-05 10:36] LABS: Albumin Globulin Ratio 1.1 (0.9-2); BUN Creatinine Ratio 19.8 (10-20); Bilirubin,Total 0.9 mg/dl (0.2-1.0); Calcium 9.5 mg/dl (8.5-10.1); Creatinine Clr Calc Pharmacy 96.6 ml/min; Est GFR (African American) 93.9 ml/min; Globulin 3.5 gm/dl (2.5-4.0); Potassium 4.3 mmol/L (3.5-5.1); Total Protein 7.5 gm/dl (6.0-8.3)
[2022-09-05 10:41] LABS: Prothrombin Time 11.1 Seconds (9.0-12.0)
[2022-09-05] MEDS ORDERED: Heparin IV Adult Wt-Based Low-Dose WITH Bolus Protocol STA (11:21)
--- NOTE | 2022-09-05 11:27 | History & Physical Report ---
Date of Service September 05, 2022 Assessment & Plan (1) Acute non-ST segment elevation myocardial infarction: (2) Morbid obesity: (3) Dyslipidemia: (4) Diabetes mellitus type 2 with complications: (5) BPH (benign prostatic hypertrophy): (6) Coronary artery disease: (7) Hypertension: Plan 77-year-old presenting with chest pain relieved with Nitro. Troponin level was 1843. Bedside ECHO was ordered with mildly depressed LV function EF 45-50%, mild MR, mild to moderate TR; most recent ECHO was 03/24: EF 55%. EKG reveals SB with bundle branch block and PACs. 02/19 STEMI status post PCI with 3 CHEL to the LAD and was on Brilinta x1 year. In ED, on Heparin gtt, awaiting PCI. Cards consult. Acute non-ST segment elevation myocardial infarction: CAD: Hypertension: Morbid obesity: Continues to take aspirin; no longer taking Brilinta or lipid-lowering therapy per records; Cariology re-started Bilinta Troponin level 1843 Heparin drip started low-dose with bolus N.p.o. for PCI with Dr. Jaramillo. 02/2019: Anterior STEMI with CHEL x3 Cardiology consult placed Takes Metoprolol; continue. Await further direction from cardiology Diabetes mellitus type 2: diet mods; last A1C: 6.6 Was on Metformin; appears it was discontinued; This needs to be followed up on for clarification Dyslipidemia: Continues to take aspirin; no longer taking Brilinta or lipid-lowering therapy per records diet mods BPH: Takes tamsulosin; continue Disposition: PCP: Dr. Christie CODE STATUS: Full code VTE Prophylaxis: Heparin gtt I personally was able to review all current laboratory work and diagnostic images obtained in the ED. Additionally, I was able to review the patients past medication reconciliation and history with direct visualization in the patients chart. I was able to see this patient and collaborate with Dr. Terrell. Please see his addendum for further details. History of Present Illness Chief Complaint: Chest pain Primary Care Provider: Joseph Christie MD Mr. Elias Salmon is a 77-year-old male who presented to the [facility] ED today with ongoing chest pain that started intermittently last evening. He reports that last evening every 20 minutes he started to have left anterior chest pain without radiation to jaw, back, arm. Patient stated that he took 2 sublingual nitro with relief in the evening and 1 this morning. In the ED, troponin level was 1843. Bedside ECHO was ordered with mildly depressed LV function; most recent ECHO was 03/24: EF 55%. Patient denies headache, dizziness, shortness of breath, heart palpitations, swelling, MARTIN, orthopnea, nausea, vomiting, diarrhea, recent trauma. CXR in the ED was negative. EKG reveals SB with bundle branch block and PACs. In February 2019 patient had STEMI status post PCI with 3 CHEL to the LAD and was on Brilinta x1 year. Additional past medical history includes DM2, OA, BPH, hypertension, hyperlipidemia, obesity. Patient denies tobacco, alcohol, or recreational drug use. 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 In the ED, patient was started on a Heparin drip was started low-dose with bolus and he was made n.p.o. cardiology evaluated the patient at bedside and based on his risk factors, PMH, elevated troponin the decision was made to proceed with catheterization. Hospitalist service will admit for further management and monitoring. Please see A/P for further details. Allergies Allergy/AdvReac Type Severity Reaction Status Date / Time levofloxacin Allergy Intermediate HIVES Verified 05/02/20 08:19 Home Medications Medication Instructions Recorded Confirmed Type tamsulosin 0.4 mg capsule 0.4 mg PO DAILY 02/27/19 09/05/22 History aspirin 81 mg chewable tablet 81 mg PO DAILY #30 tabs 03/02/19 09/05/22 Rx metoprolol tartrate 25 mg tablet 25 mg PO BID #60 tabs 03/02/19 09/05/22 Rx nitroglycerin 0.4 mg sublingual 0.4 mg sublingual Q5M PRN chest 03/02/19 09/05/22 Rx tablet (Nitrostat) pain #25 tabs lisinopril 5 mg tablet (Zestril) 5 mg PO QAM 30 days #30 tabs 09/06/22 Rx rosuvastatin 20 mg tablet (Crestor) 20 mg PO QAM 30 days #30 tabs 09/06/22 Rx ticagrelor 90 mg tablet (Brilinta) 90 mg PO BID 30 days #60 tabs 09/06/22 Rx Past Med/Surg History Medical History Bilateral primary osteoarthritis of knee BPH (benign prostatic hypertrophy) Coronary artery disease STEMI 02/27/19, s/p PCI LAD w 3 drug-eluting stents Diabetes mellitus type 2 with complications Dyslipidemia Hypertension Obesity Status post insertion of drug-eluting stent into left anterior descending (LAD) artery 3 drug-eluting stents LAD 02/27/19 Surgical History H/O cataract removal with insertion of prosthetic lens History of total left hip arthroplasty "2012; Dr. Hines" Family History Other Heart disease Social History Smoking Status: Never smoker Hx Alcohol Use: No Hx Substance Use: No Preferred Language: Moldovan Communication Ability: Effective Corporate Relations Manager Required: No Beliefs That Will Affect Care: None Current Living Situation: Spouse Feels Safe at Home: Yes Assistive Devices: None Review of Systems Review of Systems: Neuro: (-) Falls, trauma, slurred speech HEENT: (-) MCDUFFIE, dizziness, dysphagia, visual or auditory changes CV: (+) CP, palpitations, (-) swelling Resp: (-) SOB GI: (-) appetite changes, N/V/D, bowel changes : (-) urinary changes Skin: (-) rashes Psych: (-) anxiety, depression Physical Exam Physical Exam: Neuro: AAOx4, PERRLA, no aphagia, memory changes, CNII-XII grossly intact HEENT: head normocephalic, moist mucus membranes CV: S1/S2, (-) M/G/R, (-) edema, cap refill < 3 seconds Resp: Lungs CTA in all hurt. On RA GI: Abdomen S/NT/ND, Ax4 bowel sounds, (-) CVA tenderness Musculoskeletal: 5/5 B/L UE strength, 5/5 B/L LE strength. No gait disturbance Skin: (-) rashes , (-) erythema. Psych: euthymic mood Results & Data Results & Data ([facility]) Vital Signs (Past 12 Hours) Vital Signs Temp Pulse Resp BP Pulse Ox O2 Del Method 09/05/22 11:20 54 L 25 H 132/74 98 09/05/22 09:50 Room Air 09/05/22 09:28 36.6 C 55 L 18 154/82 H 99 Room Air Laboratory Results Short CBC 09/05/22 Range/Units 09:39 WBC 5.89 (4.8-10.8) K/ul Hgb 15.1 (14.0-18.0) g/dl Hct 44.2 (40.1-51.0) % Plt Count 166 (130-400) K/uL BMP 09/05/22 09:39 Sodium 138 Potassium 4.3 Chloride 105 Carbon Dioxide 28 BUN 18 Creatinine 0.91 Glucose 116 H Calcium 9.5 Liver Function 09/05/22 Range/Units 09:39 Total Bilirubin 0.9 (0.2-1.0) mg/dl AST 21 (13-39) U/L ALT 13 (7-52) U/L Alkaline Phosphatase 61 (34-104) U/L Albumin 4.0 (3.4-5.0) gm/dl Diagnostic Findings Chest X-Ray 09/05/22 09:47 XR chest 1V portable HISTORY: 77 years-old Male chest pain acute chest pain COMPARISON: Chest radiograph 02/28/2019 TECHNIQUE: AP view of the chest FINDINGS: Cardiac silhouette is enlarged. No pneumothorax, pleural effusion, airspace consolidation or overt pulmonary edema. Unchanged right hemidiaphragmatic elevation. Mild chronic interstitial coarsening of the lung bases. IMPRESSION: No acute process. ACT 112: Negative or not required by law. The above report was generated using voice recognition software. It may contain grammatical, syntax or spelling errors. Electronically signed by: Nick Oglesby M.D. 09/05/2022 10:10 AM ECG Additional Comments: SB HR 55 Some T wave inversion SHY 204 ms QRS 134 ms QTc 453 Code Status & VTE Plan Code Status Full code in the event of cardiac or respiratory arrest VTE Prophylaxis Plan VTE Prophylaxis will be ordered: Yes Supervising Physician Co-Signing Physician Notes Pt was seen and examined for chest pain. Agreed with Vannesa RAMÍREZ exam, assessment and plan. Present on admission with chest pain. Troponin elevated. ER provider discussed case with cardiology Dr. Ferrer that recommended to start on IV heparin drip. ECHO performed in the ER mpderate concentric LVH. dyssynergic contraction of the septum consistent with conduction abnormality and severe hypokinesis of the apex and mid and apical septal brennan with LV 45-50. Case discussed with cardiology. Continue aspirin, metoprolol and heparin drip. Will keep patient NPO to take to cardiac cath. Will monitor closely in telemetry. MD Nidhi
[2022-09-05] MEDS ORDERED: HEPARIN SOD (PORCINE) 1000 UNIT/ML IV ONE (11:37)
[2022-09-05] MEDS ORDERED: HEPARIN SODIUM/DEXTROSE 25,000 UNITS/500 ML BAG IV SCH (11:45)
--- NOTE | 2022-09-05 12:13 | Electrocardiogram Report ---
Test Reason : Blood Pressure : / mmHG Vent. Rate : 055 BPM Atrial Rate : 055 BPM P-R Int : 204 ms QRS Dur : 134 ms QT Int : 474 ms P-R-T Axes : 044 -24 041 degrees QTc Int : 453 ms Sinus bradycardia Right bundle branch block Abnormal ECG When compared with ECG of 01-MAR-2019 06:33, T wave inversion no longer evident in Anterolateral leads QT has shortened Confirmed by Reinier Moses ([id number]) on 09/05/2022 12:13:01 PM Referred By: Matthew Mon Confirmed By:Emery Moses
[2022-09-05 12:34] LABS: Partial Thromboplastin Ratio 1.2; Partial Thromboplastin Time 31.9 Seconds (21.0-31.0)
--- NOTE | 2022-09-05 13:05 | Cardiology Consultation ---
Date of Consultation September 05, 2022 Assessment & Plan (1) Acute non-ST segment elevation myocardial infarction: (2) Status post insertion of drug-eluting stent into left anterior descending (LAD) artery: (3) Hypertension: (4) Morbid obesity: (5) Dyslipidemia: Plan Patient is a 77-year-old male with known coronary artery disease presents with symptoms and pattern of stuttering angina pectoris at rest. Elevated troponin consistent with non-ST segment elevation myocardial infarction. Echocardiogram reflects past wall motion abnormalities anteroseptum apex more pronounced on current study. Recommendations: Patient referred for coronary angiography acutely IV heparin initiated. Further recommendations pending results of testing. Patient will need hypertension, hyperlipidemia addressed with indications for statin SHAHZAD inhibitor present History of Present Illness Attending Physician: Manuel Ferrer MD History of Present Illness Patient is a 77-year-old male with ongoing cardiac issues which include 1. Acute ST elevation myocardial infarction treated with drug-eluting stent times 03 February 2019, left radial access 2. Repeat coronary angiography July 2020 for frequent ventricular ectopy and nonsustained ventricular tachycardia without progression in disease 3. Morbid obesity 4. Hyperlipidemia 5. Type 2 diabetes mellitus 6. Right bundle branch block/IVCD The patient presents to the emergency room today noting stuttering chest pain beginning last evening. Symptoms were relieved by nitroglycerin only to return. Patient contacted cardiology office and was urged to seek ER evaluation. On presentation patient symptoms had resolved. Initial laboratory studies demonstrate however elevation in high-sensitivity troponin to 1843 reflects chronic right bundle branch block. EKG reviewed Urgent echocardiogram demonstrates more pronounced septal and apical wall motion abnormality with mildly depressed LV function. Patient denies any sense of tachypalpitations syncope or near syncope. No fevers chills or unexplained infections. Symptoms are relatively new in onset and notes having felt well recently. No bleeding difficulties. No melena or hematochezia. No hematuria or dysuria. He does urinate frequently at night. Weight has been stable though elevated chronically. No difficulties with appetite or sleep. 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 Allergies Allergy/AdvReac Type Severity Reaction Status Date / Time levofloxacin Allergy Intermediate HIVES Verified 05/02/20 08:19 Home Medications Medication Instructions Recorded Confirmed Type tamsulosin 0.4 mg capsule 0.4 mg PO DAILY 02/27/19 09/05/22 History aspirin 81 mg chewable tablet 81 mg PO DAILY #30 tabs 03/02/19 09/05/22 Rx metoprolol tartrate 25 mg tablet 25 mg PO BID #60 tabs 03/02/19 09/05/22 Rx nitroglycerin 0.4 mg sublingual 0.4 mg sublingual Q5M PRN chest 03/02/19 09/05/22 Rx tablet (Nitrostat) pain #25 tabs Patient History Medical History Bilateral primary osteoarthritis of knee BPH (benign prostatic hypertrophy) Coronary artery disease STEMI 02/27/19, s/p PCI LAD w 3 drug-eluting stents Diabetes mellitus type 2 with complications Dyslipidemia Hypertension Obesity Status post insertion of drug-eluting stent into left anterior descending (LAD) artery 3 drug-eluting stents LAD 02/27/19 Surgical History H/O cataract removal with insertion of prosthetic lens History of total left hip arthroplasty "2013; Dr. Hines" Family History Other Heart disease Social History Smoking Status: Never smoker Hx Alcohol Use: No Hx Substance Use: No Preferred Language: Trinidadian Communication Ability: Effective Metaphysician Required: No Beliefs That Will Affect Care: None Current Living Situation: Spouse Other Information That Helps Us Care for You: No Feels Safe at Home: Yes Safety Concerns: Feels Safe At This Time Assistive Devices: Glasses Review of Systems Review of Systems: All systems reviewed & are unremarkable except as noted in HPI & below Physical Exam Constitutional: + morbidly obese; no acute distress Eyes: PERRL, conjunctivae normal, anicteric sclerae ENMT: external ear and nose normal, oropharynx normal Neck: trachea midline, no thyromegaly Respiratory: normal respiratory effort, lungs clear to auscultation Cardiovascular: Rate/Rhythm: regular rate and regular rhythm Heart Sounds: no murmur Vessels: no JVD Extremities: + edema (1+) Gastrointestinal (Abdomen): normal bowel sounds, soft, nontender, no hepatosplenomegaly Musculoskeletal: no cyanosis or clubbing, extremities motor strength 5/5 Psychiatric: A+Ox3, euthymic affect Results & Data ([facility]) Vital Signs (Past 12 Hours) Vital Signs Temp Pulse Resp BP Pulse Ox O2 Del Method 09/05/22 12:21 53 L 20 150/80 H 09/05/22 12:44 53 L 20 150/80 H 09/05/22 11:20 54 L 25 H 132/74 98 09/05/22 09:50 Room Air 09/05/22 09:28 36.6 C 55 L 18 154/82 H 99 Room Air Laboratory Results Laboratory Results - last 24 hr 09/05/22 09/05/22 09/05/22 09:39 09:39 09:39 WBC 5.89 RBC 4.81 Hgb 15.1 Hct 44.2 MCV 91.9 MCH 31.4 MCHC 34.2 RDW Std Deviation 42.0 RDW Coeff of Mariam 12.5 Plt Count 166 MPV 9.5 Immature Gran % (Auto) 0.3 Neut % (Auto) 40.9 Lymph % (Auto) 42.6 [place] % (Auto) 12.2 Eos % (Auto) 3.7 Baso % (Auto) 0.3 Neut # (Auto) 2.40 Lymph # (Auto) 2.51 [place] # (Auto) 0.72 Eos # (Auto) 0.22 Baso # (Auto) 0.02 Immature Gran # (Auto) 0.02 PT 11.1 INR 1.0 APTT PTT Ratio Sodium 138 Potassium 4.3 Chloride 105 Carbon Dioxide 28 Anion Gap 5 BUN 18 Creatinine 0.91 Est Cr Clr Drug Dosing 96.6 Est GFR ( Amer) 93.9 Est GFR (Non-Af Amer) 81.0 BUN/Creatinine Ratio 19.8 Glucose 116 H Calcium 9.5 Magnesium 2.0 Total Bilirubin 0.9 AST 21 ALT 13 Alkaline Phosphatase 61 Troponin I High Sens 1843.0 H* Total Protein 7.5 Albumin 4.0 Globulin 3.5 Albumin/Globulin Ratio 1.1 Lipase 27 SARS-CoV-2, RNA, NAAT 09/05/22 09/05/22 09:39 11:20 WBC RBC Hgb Hct MCV MCH MCHC RDW Std Deviation RDW Coeff of Mariam Plt Count MPV Immature Gran % (Auto) Neut % (Auto) Lymph % (Auto) [place] % (Auto) Eos % (Auto) Baso % (Auto) Neut # (Auto) Lymph # (Auto) [place] # (Auto) Eos # (Auto) Baso # (Auto) Immature Gran # (Auto) PT INR APTT 31.9 H PTT Ratio 1.2 Sodium Potassium Chloride Carbon Dioxide Anion Gap BUN Creatinine Est Cr Clr Drug Dosing Est GFR ( Amer) Est GFR (Non-Af Amer) BUN/Creatinine Ratio Glucose Calcium Magnesium Total Bilirubin AST ALT Alkaline Phosphatase Troponin I High Sens Total Protein Albumin Globulin Albumin/Globulin Ratio Lipase SARS-CoV-2, RNA, NAAT NEGATIVE
[2022-09-05] MEDS ORDERED: MIDAZOLAM HCL 1 MG/ML 2ML VIAL ONE (13:10)
[2022-09-05] MEDS ORDERED: fentaNYL citrate 100 MCG/2 ML VIAL ONE ×2 (13:10→14:51)
[2022-09-05] MEDS ORDERED: HEPARIN (PORCINE) 1000 UNIT/ML 10 ML (CATH LAB USE ONLY) ONE (13:10)
[2022-09-05] MEDS ORDERED: niCARdipine HCL INJ 2.5 MG/ML 10 ML AMP ONE (13:10)
[2022-09-05] MEDS ORDERED: NITROGLYCERIN/D5W 100MCG/ML 20ML SYR ONE (13:11)
[2022-09-05] MEDS ORDERED: TICAGRELOR 90 MG TAB ONE (13:55)
[2022-09-05] MEDS ORDERED: NITROGLYCERIN SL 0.4 MG/TAB TAB SL PRN (14:16)
[2022-09-05] MEDS ORDERED: ACETAMINOPHEN 325 MG TAB ONE (14:33)
--- NOTE | 2022-09-05 15:13 | Pre Anesthesia Assessment ---
Date of Service September 05, 2022 Pre Sedation Assessment Vital Signs Temp Pulse Pulse Resp BP BP Pulse Ox 09/05/22 14:40 56 L 16 158/86 H 96 09/05/22 14:25 54 L 16 149/77 H 96 09/05/22 14:10 52 L 16 152/81 H 96 09/05/22 12:21 53 L 20 150/80 H 09/05/22 12:44 53 L 20 150/80 H 09/05/22 11:20 54 L 25 H 132/74 98 09/05/22 09:50 09/05/22 09:28 36.6 C 55 L 18 154/82 H 99 O2 Del Method 09/05/22 14:40 Room Air 09/05/22 14:25 Room Air 09/05/22 14:10 Room Air 09/05/22 12:21 09/05/22 12:44 09/05/22 11:20 09/05/22 09:50 Room Air 09/05/22 09:28 Room Air Cardiovascular RRR, no murmur, no edema Respiratory normal respiratory effort, lungs clear to auscultation Pre-Sedation Airway Assessment Smoking Status: Never smoker Hx Sleep Apnea: No Short, Thick Neck: No Thyromental Distance: > or= 3.5 Finger Breadths Oral Cavity: + WNL Mallampati Class: III ASA: ASA3 NPO Status Date of Last Intake of Fluids: 09/04/22 Date of Last Intake of Solid Food: 09/04/22 Notes The planned sedation has been discussed with the patient. Informed Consent was obtained. I have identified the patient, determined the appropriateness of sedation and have assessed the patient immediately prior to the procedure. All medicine(s) and interventions are by my order.
--- NOTE | 2022-09-05 15:14 | Post Anesthesia Assessment ---
Date of Service September 05, 2022 Post Sedation Assessment Vital Signs Temp Pulse Pulse Resp BP BP Pulse Ox 09/05/22 14:40 56 L 16 158/86 H 96 09/05/22 14:25 54 L 16 149/77 H 96 09/05/22 14:10 52 L 16 152/81 H 96 09/05/22 12:21 53 L 20 150/80 H 09/05/22 12:44 53 L 20 150/80 H 09/05/22 11:20 54 L 25 H 132/74 98 09/05/22 09:50 09/05/22 09:28 36.6 C 55 L 18 154/82 H 99 O2 Del Method 09/05/22 14:40 Room Air 09/05/22 14:25 Room Air 09/05/22 14:10 Room Air 09/05/22 12:21 09/05/22 12:44 09/05/22 11:20 09/05/22 09:50 Room Air 09/05/22 09:28 Room Air Recovery Score Activity: Moves 4 extremities Respiration: Deep Breath/Cough Circulation: +/-20% PreAnes Value Consciousness: Fully Awake Oxygen Saturation: > 92% On Room Air Post Anesthesia Score: 10 Discharge Sedation Level of Care: Phase I Post Sedation Plan On clinical assessment, the patient appears to have tolerated the sedation without complications. Patient is recovering as anticipated. Patient will continue to be monitored by nursing and may be discharged when sedation discharge criteria are met per below protocol. Upon Completions of procedure up to 15 minutes continue every 5 minute vital signs and the P.A.R. score; then discharge to a Phase I or Fast Track to Phase II per the following guidelines: * Discharge Patient to appropriate Phase II area if PAR is 8 or greater or return to pre- procedure baseline. The post - procedure orders will be as directed. * If PAR score is less than 8 or not return to pre-procedure baseline then patient will follow Phase I monitoring till PAR is reached for Phase II. The Phase I may be done in procedure room or may call to secure a Phase I area. * If naloxone or flumazenil are used for reversal, hold in Phase I for continued monitoring from when last reversal dose was given for a minimum of 60 minutes or longer pending the nurse and/or physician discretion of patient condition before discharge to Phase II. Please call the Sedation Physician to re-evaluate and complete post-note for discharge to Phase II area. Do NOT discharge from procedure sedation or Phase 1 until post- sedation evaluation note is complete by procedure /sedation MD Sedation Discharge Instructions to be given to the patient at discharge to home. [facility] [place] Procedure Codes (Charges) Indication for Procedure Indication for procedure: NSTEMI Sedation/Anesthesia Procedure 1: Sedation/Anesthesia: 07895 Mod Sedation by the same physician;Init15 Min Child Age 5 & Up Total Sedation Time (minutes): 15 Procedure 2: Sedation/Anesthesia: 16606 Mod Sedation by the same physician; Ea [id number] Minutes Total Sedation Time (minutes): 40
--- NOTE | 2022-09-05 18:15 | CT Scan Report ---
CT abd pelvis wo con CLINICAL HISTORY: low back/flank pain s/p cath. Exclude RPB. TECHNIQUE: Helical axial images of the abdomen and pelvis were obtained. Automated dose lowering tech niques and/or adjustment according to patient size were utilized for this exam. This exam was perfor med without intravenous contrast. CT DOSE: 2142.39 mGy.cm COMPARISON: None available at the time of this dictation. FINDINGS: Lower chest: Bibasilar atelectasis versus scarring is seen. Liver: Unremarkable. No focal lesions are seen. Gallbladder and biliary tree: No calcified gallstones. Normal caliber wall. No intra- or extrahepatic biliary ductal dilation. Pancreas: Unremarkable, no focal lesions. Spleen: Unremarkable. Adrenals: Unremarkable. Kidneys and ureters: Perinephric stranding is noted bilaterally. Urinary system is opacified with con trast. Bladder: Unremarkable. Reproductive organs: Prostatic calcifications are seen which may represent prior hemorrhage or granul omatous disease. Bowel: Diverticulosis is seen without evidence of diverticulitis. The appendix is normal. A small hia cora hernia is seen. Lymph nodes Retroperitoneal: Unremarkable. Pelvic: Unremarkable. Mesenteric: Subcentimeter lymph nodes are noted. Peritoneum: Mild mid peritoneal stranding is seen. Vessels: Atherosclerotic calcifications are seen. Abdominal wall: Bilateral fat-containing inguinal hernias are seen. Bones: Patient is status post left total hip arthroplasty. Degenerative changes are seen in the spine . IMPRESSION: No acute abnormalities are seen. Incidental findings are as above. ACT 112: Negative or not required by law. Electronically signed by: Rajan Carreon M.D. 09/05/2022 6:14 PM
[2022-09-05 18:33] LABS: Chol HDL Ratio 4.4 (0-5)
[2022-09-05 18:35] LABS: Partial Thromboplastin Ratio 2.6
[2022-09-05 18:37] LABS: Partial Thromboplastin Time 72.3 Seconds (21.0-31.0)
[2022-09-05 18:40] LABS: Troponin I High Sensitivity 1810.6 pg/ml (0-20)
[2022-09-05] MEDS: METOPROLOL TARTRATE 25 MG TAB PO SCH (20:07)
[2022-09-05] MEDS: TICAGRELOR 90 MG TAB PO SCH (20:08)
[2022-09-06 07:41] LABS: Basophils # (auto) 0.03 K/uL (0-0.2); Basophils % (auto) 0.5 %; Eosinophils # (auto) 0.14 K/uL (0-0.50); Eosinophils % (auto) 2.1 %; Hematocrit (blood only) 42.4 % (40.1-51.0); Hemoglobin 14.9 g/dl (14.0-18.0); Immature Granulocytes # (auto) 0.04 K/uL (0.00-0.02); Immature Granulocytes % (auto) 0.6 %; Lymphocytes # (auto) 1.52 K/uL (1.2-3.4); Lymphocytes % (auto) 23.2 %; Mean Corpuscular Hemoglobin 31.1 pg (25.0-34.0); Mean Corpuscular Hgb Conc 35.1 g/dL (32.0-36.0); Mean Corpuscular Volume 88.5 fL (80.0-100.0); Mean Platelet Volume 9.3 fL (9.4-12.4); Monocytes # (auto) 0.63 K/uL (0.24-0.82); Monocytes % (auto) 9.6 %; Neutrophils # (auto) 4.19 K/uL (1.4-6.5); Platelet Count 154 K/uL (130-400); RDW Coefficient of Variation 12.5 % (11.5-14.5); RDW Standard Deviation 40.9 fL (36.4-46.3); Red Blood Count 4.79 M/uL (4.63-6.08); White Blood Count 6.55 K/ul (4.8-10.8)
[2022-09-06 07:53] LABS: Estimated Average Glucose 137 mg/dl; Hemoglobin A1C 6.4 % (4.5-5.6)
[2022-09-06 08:00] LABS: BUN Creatinine Ratio 17.8 (10-20); Creatinine Clr Calc Pharmacy 96.8 ml/min; Est GFR (African American) 95.1 ml/min; Est GFR (Non-African American) 82.1 ml/min; Phosphorus 2.6 mg/dl (2.5-4.9); Potassium 3.9 mmol/L (3.5-5.1)
[2022-09-06] MEDS: METOPROLOL TARTRATE 25 MG TAB PO SCH (08:24)
[2022-09-06] MEDS: TICAGRELOR 90 MG TAB PO SCH (08:24)
[2022-09-06] MEDS ORDERED: TAMSULOSIN HCL 0.4 MG CAP PO SCH (09:00)
[2022-09-06] MEDS ORDERED: ASPIRIN 81 MG ECTAB PO SCH (09:00)
[2022-09-06] MEDS ORDERED: ASPIRIN 81 MG CHEW PO SCH (09:00)
[2022-09-06] MEDS ORDERED: ENOXAPARIN INJ 40 MG/0.4 ML SYR SQ SCH (09:00)
--- NOTE | 2022-09-06 10:40 | Cardiology Progress Note ---
Date of Service September 06, 2022 Assessment & Plan (1) Acute non-ST segment elevation myocardial infarction: (2) Status post insertion of drug-eluting stent into left anterior descending (LAD) artery: (3) Hypertension: (4) Morbid obesity: (5) Dyslipidemia: Plan Patient is a 77-year-old male with known coronary artery disease presents with symptoms and pattern of stuttering angina pectoris at rest. Elevated troponin consistent with non-ST segment elevation myocardial infarction. Echocardiogram reflects past wall motion abnormalities anteroseptum apex more pronounced on current study. 09/06/2022. Patient underwent urgent coronary angiography which demonstrated high-grade stenosis of the large ramus intermedius status post successful drug- eluting stent. Recommendations: Guideline directed optimal medical regimen. Continue metoprolol at current dosing. Add lisinopril 5 mg p.o. daily add rosuvastatin 20 mg p.o. daily dual antiplatelet therapy as ordered aspirin and Brilinta Cardiac rehab with lifestyle modification Keep PCP appointment scheduled 09/11/2022 Cardiology appointment 1 month Admission and Anticipated Discharge Date Admission Date: September 05, 2022 Subjective Patient seen and examined, chart, medications, telemetry reviewed. No chest pains or discomfort overnight. Other than mild tenderness chest wall at site of echo probe imaging. Femoral artery access healing well. No arrhythmias on telemetry. Review of Systems Review of Systems: All systems reviewed & are unremarkable except as noted in Subjective Physical Exam Constitutional: + morbidly obese; no acute distress Eyes: PERRL, conjunctivae normal, anicteric sclerae ENMT: external ear and nose normal, oropharynx normal Neck: trachea midline, no thyromegaly Respiratory: normal respiratory effort, lungs clear to auscultation Cardiovascular: Rate/Rhythm: regular rate and regular rhythm Heart Sounds: no murmur Vessels: no JVD Extremities: + edema (1+) Gastrointestinal (Abdomen): normal bowel sounds, soft, nontender, no hepatosplenomegaly Musculoskeletal: no cyanosis or clubbing, extremities motor strength 5/5 Psychiatric: A+Ox3, euthymic affect Results & Data ([facility]) Vital Signs (Past 12 Hours) Vital Signs Temp Pulse Pulse Resp BP Pulse Ox O2 Del Method 09/06/22 08:00 60 09/06/22 07:51 36.3 C L 57 L 18 129/70 96 Room Air 09/06/22 03:25 36.3 C L 59 L 16 112/69 97 Room Air 09/05/22 22:50 36.6 C 57 L 18 127/72 94 Room Air Laboratory Results Laboratory Results - last 24 hr 09/05/22 09/05/22 09/05/22 09:39 09:39 09:39 WBC RBC Hgb Hct MCV MCH MCHC RDW Std Deviation RDW Coeff of Mariam Plt Count MPV Immature Gran % (Auto) Neut % (Auto) Lymph % (Auto) [place] % (Auto) Eos % (Auto) Baso % (Auto) Neut # (Auto) Lymph # (Auto) [place] # (Auto) Eos # (Auto) Baso # (Auto) Immature Gran # (Auto) ESR PT 11.1 INR 1.0 APTT 31.9 H PTT Ratio 1.2 Activ Coag Time Kaolin Sodium Potassium Chloride Carbon Dioxide Anion Gap BUN Creatinine Est Cr Clr Drug Dosing Est GFR ( Amer) Est GFR (Non-Af Amer) BUN/Creatinine Ratio Glucose Estimat Average Glucose Hemoglobin A1c Calcium Phosphorus Magnesium Troponin I High Sens 1843.0 H* Triglycerides Cholesterol LDL Cholesterol, Calc VLDL Cholesterol, Calc HDL Cholesterol Cholesterol/HDL Ratio Hepatitis C Ab (EIA) Hep C Ab Signal/Cutoff SARS-CoV-2, RNA, NAAT 09/05/22 09/05/22 09/05/22 11:20 14:03 17:54 WBC RBC Hgb Hct MCV MCH MCHC RDW Std Deviation RDW Coeff of Mariam Plt Count MPV Immature Gran % (Auto) Neut % (Auto) Lymph % (Auto) [place] % (Auto) Eos % (Auto) Baso % (Auto) Neut # (Auto) Lymph # (Auto) [place] # (Auto) Eos # (Auto) Baso # (Auto) Immature Gran # (Auto) ESR PT INR APTT 72.3 H* PTT Ratio 2.6 Activ Coag Time Kaolin 265 H Sodium Potassium Chloride Carbon Dioxide Anion Gap BUN Creatinine Est Cr Clr Drug Dosing Est GFR ( Amer) Est GFR (Non-Af Amer) BUN/Creatinine Ratio Glucose Estimat Average Glucose Hemoglobin A1c Calcium Phosphorus Magnesium Troponin I High Sens Triglycerides Cholesterol LDL Cholesterol, Calc VLDL Cholesterol, Calc HDL Cholesterol Cholesterol/HDL Ratio Hepatitis C Ab (EIA) Hep C Ab Signal/Cutoff SARS-CoV-2, RNA, NAAT NEGATIVE 09/05/22 09/06/22 09/06/22 17:54 00:07 07:24 WBC RBC Hgb Hct MCV MCH MCHC RDW Std Deviation RDW Coeff of Mariam Plt Count MPV Immature Gran % (Auto) Neut % (Auto) Lymph % (Auto) [place] % (Auto) Eos % (Auto) Baso % (Auto) Neut # (Auto) Lymph # (Auto) [place] # (Auto) Eos # (Auto) Baso # (Auto) Immature Gran # (Auto) ESR PT INR APTT PTT Ratio Activ Coag Time Kaolin Sodium Potassium Chloride Carbon Dioxide Anion Gap BUN Creatinine Est Cr Clr Drug Dosing Est GFR ( Amer) Est GFR (Non-Af Amer) BUN/Creatinine Ratio Glucose Estimat Average Glucose Hemoglobin A1c Calcium Phosphorus Magnesium Troponin I High Sens 1810.6 H* 1358.0 H* D Triglycerides 167 H Cholesterol 208 H LDL Cholesterol, Calc 128 VLDL Cholesterol, Calc 33 H HDL Cholesterol 47 Cholesterol/HDL Ratio 4.4 Hepatitis C Ab (EIA) Pending Hep C Ab Signal/Cutoff Pending SARS-CoV-2, RNA, NAAT 09/06/22 09/06/22 09/06/22 07:24 07:24 07:24 WBC 6.55 RBC 4.79 Hgb 14.9 Hct 42.4 MCV 88.5 MCH 31.1 MCHC 35.1 RDW Std Deviation 40.9 RDW Coeff of Mariam 12.5 Plt Count 154 MPV 9.3 L Immature Gran % (Auto) 0.6 Neut % (Auto) 64.0 Lymph % (Auto) 23.2 [place] % (Auto) 9.6 Eos % (Auto) 2.1 Baso % (Auto) 0.5 Neut # (Auto) 4.19 Lymph # (Auto) 1.52 [place] # (Auto) 0.63 Eos # (Auto) 0.14 Baso # (Auto) 0.03 Immature Gran # (Auto) 0.04 H ESR 14 PT INR APTT PTT Ratio Activ Coag Time Kaolin Sodium Potassium Chloride Carbon Dioxide Anion Gap BUN Creatinine Est Cr Clr Drug Dosing Est GFR ( Amer) Est GFR (Non-Af Amer) BUN/Creatinine Ratio Glucose Estimat Average Glucose 137 Hemoglobin A1c 6.4 H Calcium Phosphorus Magnesium Troponin I High Sens Triglycerides Cholesterol LDL Cholesterol, Calc VLDL Cholesterol, Calc HDL Cholesterol Cholesterol/HDL Ratio Hepatitis C Ab (EIA) Hep C Ab Signal/Cutoff SARS-CoV-2, RNA, NAAT 09/06/22 07:24 WBC RBC Hgb Hct MCV MCH MCHC RDW Std Deviation RDW Coeff of Mariam Plt Count MPV Immature Gran % (Auto) Neut % (Auto) Lymph % (Auto) [place] % (Auto) Eos % (Auto) Baso % (Auto) Neut # (Auto) Lymph # (Auto) [place] # (Auto) Eos # (Auto) Baso # (Auto) Immature Gran # (Auto) ESR PT INR APTT PTT Ratio Activ Coag Time Kaolin Sodium 137 Potassium 3.9 Chloride 105 Carbon Dioxide 25 Anion Gap 7 BUN 16 Creatinine 0.90 Est Cr Clr Drug Dosing 96.8 Est GFR ( Amer) 95.1 Est GFR (Non-Af Amer) 82.1 BUN/Creatinine Ratio 17.8 Glucose 132 H Estimat Average Glucose Hemoglobin A1c Calcium 9.0 Phosphorus 2.6 Magnesium 2.0 Troponin I High Sens Triglycerides Cholesterol LDL Cholesterol, Calc VLDL Cholesterol, Calc HDL Cholesterol Cholesterol/HDL Ratio Hepatitis C Ab (EIA) Hep C Ab Signal/Cutoff SARS-CoV-2, RNA, NAAT
[2022-09-06] MEDS ORDERED: ROSUVASTATIN CALCIUM 20 MG TAB PO SCH (10:45)
--- NOTE | 2022-09-06 12:01 | Cardiac Catheterization ---
ACC Data: Surgical Services Manager Cardiac Status Clinical evaluation leading to the procedure CAD Presenation: Non STEMI Anginal Classification: CCS IV Heart Failure: No Cardiogenic Shock within 24 Hours: No Cardiac Arrest within 24 Hours: No Coronary Anatomy Dominant: Left Left Main (% Stenosis): Normal LAD (% Stenosis): Proximal (Stents widely patent) and Mid (Stents widely patent) D1 (% Stenosis): Normal Circumflex (% Stenosis): Normal L PL1 (% Stenosis): Normal L PDA (% Stenosis): Mid (50%) RCA (% Stenosis): Normal Ramus (% Stenosis): Mid (99%, MARITZA I flow) Diagnostic Physicians Name: Ruy Jaramillo MD, PhD Closure Device Percutaneous Entry Location: Femoral Closure Device: Angio-Seal Recommendations: Medical Therapy and/or Counseling and PCI without planned CABG PCI Indication: PCI for high risk Non-VERONIQUE Lesion Segment Name: Mid ramus Culprit Artery: Yes Stenosis Prior to Rx (%): 99% Chronic Total Occlusion: No Pre-Procedure MARITZA Flow: 1 Previously Treated Lesion: No Lesion Complexity: Non-High/Non-C Lesion Length (mm): 6 mm Thrombus Present: No Bifurcation Lesion: No Guidewire Across Lesion: Yes Intraprocedure Events Significant Disection: No Perforation: No Cardiac Cath Procedure Full Procedure Date September 06, 2022 Pre-Procedure Diagnosis Pre-Procedure Diagnosis: Non STEMI AUC Score AUC Score: 07 Post-Procedure Diagnosis Post-Procedure Diagnosis: Severe CAD Procedure(s) Performed Procedure(s) Performed: Coronary Angiography, Drug Eluting Stent and Ultrasound Guided Vascular Access Slab Tripper Ruy Jaramillo MD, PhD Estimated Blood Loss Estimated Blood Loss: Less than 15 mL Medication(s) Medication(s): Fentanyl, Heparin, Lidocaine 1% and Versed Summary of Findings Brief description: Patient was brought to the cardiac catheterization suite where he was shaved and prepped in a sterile fashion. Sedated using IV Versed and fentanyl. Soft tissues of the right groin were anesthetized using 10 mL of 1% Xylocaine. Using the ultrasound for guidance (image saved), the right femoral artery was accessed and a 5 Azerbaijani femoral artery sheath was placed. All catheters were advanced and exchanged over a 0.035 J-tip wire. Left coronary angiography was performed in orthogonal views with a 5 Azerbaijani JL 4 diagnostic catheter. Right coronary angiography was performed in orthogonal views with a 5 Azerbaijani JR4 diagnostic catheter. We next proceeded with PCI. ACT was checked and patient was provided additional heparin IV as needed to maintain therapeutic ACT. A 5 Azerbaijani EBU 3.5 guide catheter was used to engage the left main coronary artery. Through this, a BMW reversal guidewire was advanced and with some difficulty was eventually positioned distally in the ramus branch. Ramus lesion was then predilated using a 2.0 x 6 mm PTCA balloon. PCI was performed using a 2.25 x 12 mm drug-eluting stent deployed at 9 daniel. Stent balloon was removed and angiography was performed. The guidewire was then removed and final angiographic evaluation was performed. Guide catheter was removed over the J-wire. Limited right femoral artery angiography was performed to evaluate for closure. Findings were favorable, therefore, the femoral artery sheath was exchanged for a 6 Azerbaijani Angio-Seal closure device. This was deployed in the recommended fashion. We obtained immediate hemostasis and the patient remained hemody namically stable. He was returned to the recovery area. This ended the case. Coronary angiography and PCI findings: LMT: Large-caliber vessel which trifurcates into LAD, ramus, and circumflex. Angiographically no significant disease. LAD: Large caliber and transapical. Provides a large diagonal branch. There is a stent train from the proximal through the mid segment. This is widely patent. There is no more than mild luminal irregularities in the remainder of the LAD and its branches. Ramus: Medium to large caliber vessel which bifurcates distally with the branches being of varied diameter and reaching towards the apex. The mid segment has a 99% stenosis with MARITZA I flow distally. This is the culprit lesion. LCx: Large caliber and dominant vessel. Travels in the AV groove where it gives an OM1 followed by a large posterolateral branch, and distally terminates with a large PDA. The PDA has a mid 50% stenosis. The remainder of the circumflex and its branches have no more than mild luminal irregularities. RCA: Medium caliber and nondominant. PCI of ramus: 0% residual stenosis post PCI (small stepup and stepdown) MARITZA-3 flow post PCI No evidence of dissection or perforation post PCI Summary: Widely patent prior stents. Severe focal disease in the ramus, this is the culprit lesion. Successful PCI to the ramus branch with a single small caliber drug-eluting stent. Dual antiplatelet therapy for at least 1 but preferably up to 2 years. Guideline directed medical therapy for secondary prevention of coronary disease to include; low-dose aspirin, high intensity statin therapy, beta-jackie, plus or minus SHAHZAD inhibitor/ARB. Hemodynamics Rest Ao:: 112/69 mmHg, mean 102 mmHg Final Ao: 141/74 mmHg, mean 96 mmHg LV: Not performed Recommendations Recommendations: Medical Therapy and/or Counseling and PCI without planned CABG Radiation Exposure (mGy) 2564 mGy, 11.8 minutes fluoroscopy time Contrast (mls) 160 mL Anesthesia 2 mg IV Versed, 50 mcg IV fentanyl Procedural Complication(s) None Disposition Recovery Room\PACU I attest to the content of the Intraoperative Record and any orders documented therein. Any exceptions are noted below. [email or web address] Card Cath Procedure Codes Cardiac Catheterization Procedure 1: Cardiovascular Cath Procedures: 11840 Coronaries Therapeutic Services & Ancillary Procedure 1: Cardiovascular Tx and Anc Procedures: 67152 Ultrasonic Guidance Vascular Access Moderate Sedation Procedure 1: Sedation/Anesthesia: 88465 Mod Sedation by the same physician;Init15 Min Child Age 5 & Up (15 minutes) Procedure 2: Sedation/Anesthesia: 09328 Mod Sedation by the same physician; Ea [id number] Minutes (15 minutes additional time. Total sedation time 30 minutes) Stenting Procedure 1: Cardiovascular Stent Procedures: 52407 Perc transcatheter placement of intracoronary stent(s), with ang (Ramus) PG Care Time/CCT Total # of Minutes Spent Total Time Spent with Patient: Total time spent is greater than 50% in coordination of care (as documented) at patient's floor/unit and/or counseling patient:
--- NOTE | 2022-09-06 13:54 | Discharge Summary ---
Date of Service September 06, 2022 Admission HPI Per Admitting Provider Mr. Elias Salmon is a 77-year-old male who presented to the [facility] ED today with ongoing chest pain that started intermittently last evening. He reports that last evening every 20 minutes he started to have left anterior chest pain without radiation to jaw, back, arm. Patient stated that he took 2 sublingual nitro with relief in the evening and 1 this morning. In the ED, troponin level was 1843. Bedside ECHO was ordered with mildly depressed LV function; most recent ECHO was 03/24: EF 55%. Patient denies headache, dizziness, shortness of breath, heart palpitations, swelling, MARTIN, orthopnea, nausea, vomiting, diarrhea, recent trauma. CXR in the ED was negative. EKG reveals SB with bundle branch block and PACs. In February 2019 patient had STEMI status post PCI with 3 CHEL to the LAD and was on Brilinta x1 year. Additional past medical history includes DM2, OA, BPH, hypertension, hyperlipidemia, obesity. Patient denies tobacco, alcohol, or recreational drug use. 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 In the ED, patient was started on a Heparin drip was started low-dose with bolus and he was made n.p.o. cardiology evaluated the patient at bedside and based on his risk factors, PMH, elevated troponin the decision was made to proceed with catheterization. Hospitalist service will admit for further management and monitoring. Please see A/P for further details. Admission Exam Per Admitting Provider Neuro: AAOx4, PERRLA, no aphagia, memory changes, CNII-XII grossly intact HEENT: head normocephalic, moist mucus membranes CV: S1/S2, (-) M/G/R, (-) edema, cap refill < 3 seconds Resp: Lungs CTA in all hurt. On RA GI: Abdomen S/NT/ND, Ax4 bowel sounds, (-) CVA tenderness Musculoskeletal: 5/5 B/L UE strength, 5/5 B/L LE strength. No gait disturbance Skin: (-) rashes , (-) erythema. Psych: euthymic mood Principal Diagnosis (1) Acute non-ST segment elevation myocardial infarction: (2) Status post insertion of drug-eluting stent into left anterior descending (LAD) artery: (3) Hypertension: (4) Morbid obesity: (5) Dyslipidemia: Discharge Exam General- No acute distress Head- atraumatic Eyes- PERRL, EOMI, ENT- oropharynx clear Neck- supple, no JVD Lungs- clear to auscultation Heart- regular rhythm; no murmur Abdomen- normal bowel sounds, soft, nontender Extremities- no calf tenderness, No hematoma noted in right groin area, trace edema Neuro- alert, oriented x 3; PERRL, EOMI; no facial palsy; no dysarthria Skin- warm & dry Discharge Data Allergies Allergy/AdvReac Type Severity Reaction Status Date / Time levofloxacin Allergy Intermediate HIVES Verified 05/02/20 08:19 Consultations 09/05/22 11:24 ED Decision to Admit Stat 09/06/22 10:41 Consult Cardiac Rehabilitation Routine Procedures Performed Operation Date: 09/05/22 14:00 Actual Procedures p Cath, Coronaries ONLY (no LV) - Ruy Jaramillo MD, PhD s Ultrasound Vascular Access - Ruy Jaramillo MD, PhD s Drug Eluting Stent SGl Vessel - Ruy Jaramillo MD, PhD s Placement Art Occlusive Device - Ruy Jaramillo MD, PhD Ordered Studies 09/05/22 13:00 CL Cath Imgs for PACS use only Stat 09/05/22 15:07 CT Abd and Pelvis [CT abd pelvis wo con] Stat Laboratory Results WBC 6.55 K/ul (4.8-10.8) 09/06/22 07:24 RBC 4.79 M/uL (4.63-6.08) 09/06/22 07:24 Hgb 14.9 g/dl (14.0-18.0) 09/06/22 07:24 Hct 42.4 % (40.1-51.0) 09/06/22 07:24 MCV 88.5 fL (80.0-100.0) 09/06/22 07:24 MCH 31.1 pg (25.0-34.0) 09/06/22 07:24 MCHC 35.1 g/dL (32.0-36.0) 09/06/22 07:24 RDW Std Deviation 40.9 fL (36.4-46.3) 09/06/22 07:24 RDW Coeff of Mariam 12.5 % (11.5-14.5) 09/06/22 07:24 Plt Count 154 K/uL (130-400) 09/06/22 07:24 MPV 9.3 fL (9.4-12.4) L 09/06/22 07:24 Immature Gran % (Auto) 0.6 % 09/06/22 07:24 Neut % (Auto) 64.0 % 09/06/22 07:24 Lymph % (Auto) 23.2 % 09/06/22 07:24 [place] % (Auto) 9.6 % 09/06/22 07:24 Eos % (Auto) 2.1 % 09/06/22 07:24 Baso % (Auto) 0.5 % 09/06/22 07:24 Neut # (Auto) 4.19 K/uL (1.4-6.5) 09/06/22 07:24 Lymph # (Auto) 1.52 K/uL (1.2-3.4) 09/06/22 07:24 [place] # (Auto) 0.63 K/uL (0.24-0.82) 09/06/22 07:24 Eos # (Auto) 0.14 K/uL (0-0.50) 09/06/22 07:24 Baso # (Auto) 0.03 K/uL (0-0.2) 09/06/22 07:24 Immature Gran # (Auto) 0.04 K/uL (0.00-0.02) H 09/06/22 07:24 ESR 14 mm/hr (0-20) 09/06/22 07:24 PT 11.1 Seconds (9.0-12.0) 09/05/22 09:39 INR 1.0 (0.9-1.1) 09/05/22 09:39 APTT 72.3 Seconds (21.0-31.0) H* 09/05/22 17:54 PTT Ratio 2.6 09/05/22 17:54 Activ Coag Time Kaolin 265 SECONDS (94-140) H 09/05/22 14:03 Sodium 137 mmol/L (136-145) 09/06/22 07:24 Potassium 3.9 mmol/L (3.5-5.1) 09/06/22 07:24 Chloride 105 mmol/L (98-107) 09/06/22 07:24 Carbon Dioxide 25 mmol/L (21-32) 09/06/22 07:24 Anion Gap 7 (3-11) 09/06/22 07:24 BUN 16 mg/dl (6-23) 09/06/22 07:24 Creatinine 0.90 mg/dl (0.6-1.4) 09/06/22 07:24 Est Cr Clr Drug Dosing 96.8 ml/min 09/06/22 07:24 Est GFR ( Amer) 95.1 ml/min 09/06/22 07:24 Est GFR (Non-Af Amer) 82.1 ml/min 09/06/22 07:24 BUN/Creatinine Ratio 17.8 (10-20) 09/06/22 07:24 Glucose 132 mg/dl (70-99(Fasting)) H 09/06/22 07:24 Estimat Average Glucose 137 mg/dl 09/06/22 07:24 Hemoglobin A1c 6.4 % (4.5-5.6) H 09/06/22 07:24 Calcium 9.0 mg/dl (8.5-10.1) 09/06/22 07:24 Phosphorus 2.6 mg/dl (2.5-4.9) 09/06/22 07:24 Magnesium 2.0 mg/dl (1.7-2.4) 09/06/22 07:24 Total Bilirubin 0.9 mg/dl (0.2-1.0) 09/05/22 09:39 AST 21 U/L (13-39) 09/05/22 09:39 ALT 13 U/L (7-52) 09/05/22 09:39 Alkaline Phosphatase 61 U/L (34-104) 09/05/22 09:39 Troponin I High Sens 1358.0 pg/ml (0-20) H* D 09/06/22 00:07 Total Protein 7.5 gm/dl (6.0-8.3) 09/05/22 09:39 Albumin 4.0 gm/dl (3.4-5.0) 09/05/22 09:39 Globulin 3.5 gm/dl (2.5-4.0) 09/05/22 09:39 Albumin/Globulin Ratio 1.1 (0.9-2) 09/05/22 09:39 Triglycerides 167 mg/dl (0-150) H 09/05/22 17:54 Cholesterol 208 mg/dl (0-200) H 09/05/22 17:54 LDL Cholesterol, Calc 128 mg/dl 09/05/22 17:54 VLDL Cholesterol, Calc 33 mg/dl (0-30) H 09/05/22 17:54 HDL Cholesterol 47 mg/dl 09/05/22 17:54 Cholesterol/HDL Ratio 4.4 (0-5) 09/05/22 17:54 Lipase 27 U/L (11-82) 09/05/22 09:39 SARS-CoV-2, RNA, NAAT NEGATIVE (NEGATIVE) 09/05/22 11:20 Impressions Chest X-Ray 09/05/22 09:47 XR chest 1V portable HISTORY: 77 years-old Male chest pain acute chest pain COMPARISON: Chest radiograph 02/28/2019 TECHNIQUE: AP view of the chest FINDINGS: Cardiac silhouette is enlarged. No pneumothorax, pleural effusion, airspace consolidation or overt pulmonary edema. Unchanged right hemidiaphragmatic elevation. Mild chronic interstitial coarsening of the lung bases. IMPRESSION: No acute process. ACT 112: Negative or not required by law. The above report was generated using voice recognition software. It may contain grammatical, syntax or spelling errors. Electronically signed by: Nick Oglesby M.D. 09/05/2022 10:10 AM Abdomen/Pelvis CT 09/05/22 15:07 CT abd pelvis wo con CLINICAL HISTORY: low back/flank pain s/p cath. Exclude RPB. TECHNIQUE: Helical axial images of the abdomen and pelvis were obtained. Automated dose lowering techniques and/or adjustment according to patient size were utilized for this exam. This exam was performed without intravenous contrast. CT DOSE: 2142.39 mGy.cm COMPARISON: None available at the time of this dictation. FINDINGS: Lower chest: Bibasilar atelectasis versus scarring is seen. Liver: Unremarkable. No focal lesions are seen. Gallbladder and biliary tree: No calcified gallstones. Normal caliber wall. No intra- or extrahepatic biliary ductal dilation. Pancreas: Unremarkable, no focal lesions. Spleen: Unremarkable. Adrenals: Unremarkable. Kidneys and ureters: Perinephric stranding is noted bilaterally. Urinary system is opacified with contrast. Bladder: Unremarkable. Reproductive organs: Prostatic calcifications are seen which may represent prior hemorrhage or granulomatous disease. Bowel: Diverticulosis is seen without evidence of diverticulitis. The appendix is normal. A small hiatal hernia is seen. Lymph nodes Retroperitoneal: Unremarkable. Pelvic: Unremarkable. Mesenteric: Subcentimeter lymph nodes are noted. Peritoneum: Mild mid peritoneal stranding is seen. Vessels: Atherosclerotic calcifications are seen. Abdominal wall: Bilateral fat-containing inguinal hernias are seen. Bones: Patient is status post left total hip arthroplasty. Degenerative changes are seen in the spine. IMPRESSION: No acute abnormalities are seen. Incidental findings are as above. ACT 112: Negative or not required by law. Electronically signed by: Rajan Carreon M.D. 09/05/2022 6:14 PM Hospital Course (1) Acute non-ST segment elevation myocardial infarction: (2) Morbid obesity: (3) Dyslipidemia: (4) Diabetes mellitus type 2 with complications: (5) BPH (benign prostatic hypertrophy): (6) Coronary artery disease: (7) Hypertension: Plan 77-year-old presenting with chest pain relieved with Nitro. Troponin level was 1843. Bedside ECHO was ordered with mildly depressed LV function EF 45-50%, mild MR, mild to moderate TR; most recent ECHO was 03/24: EF 55%. EKG reveals SB with bundle branch block and PACs. 02/19 STEMI status post PCI with 3 CHEL to the LAD and was on Brilinta x1 year. In ED, on Heparin gtt, awaiting PCI. Cards consult. Acute non-ST segment elevation myocardial infarction: Present on admission with chest pain Troponin 1843 on admission, then 1810, now 1358 S/P cardiac cath with Successful PCI to the ramus branch with a single small caliber drug-eluting stent. ECHO showed discrete severe hypokinesis of the apex and mid and apical septal brennan with EF 45-60% Continue Dual antiplatelet therapy for at least 1 but preferably up to 2 years. Continue metoprolol, Rosuvastatin and lisinopril case discussed with cardiology Will need outpatient cardiac rehab Clinically stable OK from cardiology standpoint to discharge home Hypertension: BP stable will discharge on Lisinopril 5mg and metoprolol Continue monitor BP Morbid obesity: BMI 39.6 Counseling on weight loss Diabetes mellitus type 2: Most recent Hba1c 6.4 Metformin discontinued few months ago by patient Continue lifestyle modification Dyslipidemia: LDL 128, cholesterol 208, Trig 167 and HDL 47 Will discharge on Rosuvastatin 20mg daily BPH: Continue tamsulosin Disposition: Discharge home today CODE STATUS: Full code By CMS guidelines, a determination that the admission or continued stay is not medically necessary has been made by a member of the UR committee and yeni saunders for this hospital stay, therefore a Code 44 will be completed and the Inpatient admission will be changed to outpatient. Total Time Total Time Spent Total Time Spent (In Minutes): 35 minutes Discharge Plan Discharge Items Patient Disposition: Home - Self-Care Reason For Visit: CHEST PAIN Discharge Diagnosis: (1) Acute non-ST segment elevation myocardial infarction: (2) Status post insertion of drug-eluting stent into left anterior descending (LAD) artery: (3) Hypertension: (4) Morbid obesity: (5) Dyslipidemia: Activity: Resume your previous activity Non-emergency contact: Primary Care Provider and [facility] Call non-emergency contact if: you have any medication questions Follow-up/Referrals: Joseph Christie MD [Primary Care Provider] - (Date & Time 09/11/2022 3:20 PM Provider Jamie Jarrell MD Department [facility] ) Matthew Mon DO [Carburizer] - (The cardiology office will call you with a follow up appointment. ) Diet: Carb Consistent or DM2 and Heart Healthy Addtl Attending Provider Instructions: Follow up with primary care 09/11/2022 @ 3:20 PM Provider Jamie Jarrell MD Department [facility] Follow up with cardiology Dr. Mon in 1 month ( office will call you for the appointment) Your cardiology or primary care provider will arrange for cardiac rehab with lifestyle modification Continue dual antiplatelet therapy for aspirin and Brillinta Avoid any other NSAID ( such as motrin, aleve, naproxen, ibuprofen, advil, ...) while taking Brillinta and aspirin due to increase risk of bleeding Keep the area for the cardiac cath clean and dry to avoid any infection Do not use creams, lotions or ointment on the wound site Do not take a bath, tub soak, go in a Jacuzzi, or swim in a pool or govea for one week after the procedure. Do not participate in strenuous activities for 3 days after the procedure. Gradually increase your activities until you reach your normal activity level within two days after the procedure. Pending Studies at Discharge: No Stand-Alone Forms: My [facility], Smoking Cessation Medications and DC Order Prescriptions: New lisinopril [Zestril] 5 mg Tablet 5 mg PO QAM 30 Days Qty: 30 0RF rosuvastatin [Crestor] 20 mg Tablet 20 mg PO QAM 30 Days Qty: 30 0RF Brilinta 90 mg Tablet 90 mg PO BID 30 Days Qty: 60 0RF Continued tamsulosin 0.4 mg capsule 0.4 mg PO DAILY metoprolol tartrate 25 mg Tablet 25 mg PO BID Qty: 60 5RF aspirin 81 mg tablet,chewable 81 mg PO DAILY Qty: 30 12RF nitroglycerin [Nitrostat] 0.4 mg tablet, sublingual 0.4 mg Sublingual Q5M PRN (Reason: chest pain) Qty: 25 1RF Rx Instructions: As needed for chest pain or pressure. May repeat in 5 min. Call 911 if no relief. Discharge Orders: Discharge Order (Routine); Ordered 09/06/22 Ordered By: Pierre Hoff/Other Patient Handouts: High Blood Sugar (Hyperglycemia), Hypoglycemia (Low Blood Sugar), Managing Type 2 Diabetes Admission Data Admit Date/Time: 09/05/22 11:38 Attending Provider: Pierre Terrell Admit Provider: Pierre Terrell Primary Care Provider: Joseph Christie Other Providers: Manuel Ferrer ; Pierre Terrell Other Interventions: Discharge Summary Assessment (RN) Last Done: 09/06/22 13:22
--- NOTE | 2022-09-06 14:00 | Communication Note ---
Date of Service: September 06, 2022 By CMS guidelines, a determination that the admission or continued stay is not medically necessary has been made by a member of the Utilization Review co mmittee and a physician for this hospital stay. Therefore, a Code 44 will be completed and the inpatient admission will be changed to outpatient. DO KEVIN Kern Physician
[2022-09-07] MEDS ORDERED: lisinopril 5 MG TAB PO SCH (09:00)
== END 2022-09-06 15:23 | disposition home or self-care (01) ==
LOC: ED 09:23 → INTOOBSV 11:38 → 2S 12:44 → CC 12:45 → 2S 12:46
PROC: CLB.CCO (2022-09-05 14:00)

== ENCOUNTER 2025-09-04 16:51 | Observation (INO) ==
--- NOTE | 2025-09-04 17:13 | Emergency Department Note ---
Impression & Plan Chest pain, History of CAD (coronary artery disease) ED Provider Note NAME: MONO WASHINGTON AGE: 80 SEX: M : 1945 ARRIVES VIA: Ambulance INFORMANT: Patient, ED PROVIDER(S): Maxi Dallas MD CHIEF COMPLAINT: Chest pain MEDICAL DECISION MAKING: Patient presents due to concern for chest pain. Chest pain-free currently. IV was established and blood work was obtained along with an EKG. Initial EKG does not show evidence of obvious STEMI. Prior history of CAD status post stents. Has received full dose aspirin as well as for nitrates today. Patient's blood work shows a normal white count hemoglobin of 13.8 with a normal platelet count. Kidney function is unremarkable. BSG 119 troponin negative. Patient does also complain about the possibility of swelling to the left testicle. No evidence of obvious concerning findings at this time. No pain and no overt swelling or masses noted. Given the patient's chest pain and known history of CAD I did speak with the on-call hospitalist service Ebenezer Medel PA-C and the patient was admitted by Dr. Ruiz. Discussion w/ other healthcare providers: Elizabeth Medel PA-C and Dr. Ruiz Prior /Outside records reviewed: none Differential diagnosis: Cardiac ischemia, aortic dissection, pulmonary embolism, pneumothorax, pneumonia, pericarditis, myocarditis, GERD, cholecystitis, pancreatitis, musculoskeletal, as well as other pathologies were considered. Diagnostics, as interpreted by me: ECG: Sinus bradycardia with sinus arrhythmia and first-degree AV block, rate of 58 prolonged NC and QRS, right bundle branch block pattern, T wave versions anteriorly. No obvious STEMI. Cardiac monitoring: An order was placed for continuous cardiac monitoring. The monitor shows a rate of 62 with sinus rhythm. Patient was placed on pulse oximetry Medical decision rules: Heart score Imaging studies: I informally interpreted the patient's chest x-ray does not show obvious pneumonia or pneumothorax with formal report to follow. HPI: Patient presents as referral due to concern for chest pain. The patient states that he began having chest pain around 7:00 this morning. States that this lasted maybe several hours. He reports that he took 4 nitro as well as full dose aspirin and states that he is now chest pain-free. Patient states that the chest pain was left-sided. He denies any nausea vomiting or diaphoresis no radiation of pain. The patient did go to [facility] walk-in clinic and was referred here. Patient denies any falls or trauma. He reports that he is compliant with his medications he states that he did take the nitro but that it was in July. He does follow with Dr. Ferrer as he has had 2 prior stents placed. PAST MEDICAL HISTORY: See Below PAST SURGICAL HISTORY: See Below SOCIAL HISTORY: See Below HOME MEDICATIONS: See Below ALLERGIES: See Below VITALS: See Below PHYSICAL EXAMINATION: GENERAL: NAD, non-toxic. EYE EXAM: Normal conjunctiva. PERRL, no anisocoria and EOM's grossly intact w/o pain. OROPHARYNX: Moist mucus membranes, grossly normal dentition. NECK: Trachea midline, no stridor. LUNGS: Clear to auscultation. Normal chest wall mechanics. HEART: NSR, no MRG. ABDOMEN: Abdomen soft, non-tender, no masses, no rebound or guarding. BACK: No CVA TTP. SKIN: No rashes and no bruising. UPPER EXTREMITIES: Upper extremities are grossly normal. LOWER EXTREMITIES: Grossly normal, no edema. NEURO EXAM: Awake and alert, follows commands, no obvious facial asymmetry, normal speech, moves all 4 extremities. Past Med/Surg History Problem List (Updated 09/04/25 @ 23:29 by Maxi Dallas MD) History of CAD (coronary artery disease) (Acute) Chest pain (Acute) Bilateral primary osteoarthritis of knee Right knee DJD Obesity (Chronic) H/O cataract removal with insertion of prosthetic lens (Chronic) History of total left hip arthroplasty (Chronic) "2012; Dr. Hines" Vertigo (Acute) Medical History Elevated troponin Obesity Hypertension Chest pain Morbid obesity Acute non-ST segment elevation myocardial infarction Diabetes mellitus type 2 with complications Status post insertion of drug-eluting stent into left anterior descending (LAD) artery 3 drug-eluting stents LAD 02/27/19 Coronary artery disease STEMI 02/27/19, s/p PCI LAD w 3 drug-eluting stents Dyslipidemia BPH (benign prostatic hypertrophy) Hypertension Family History Other Heart disease Social History Smoking Status: Never smoker Second Hand Exposure: No; Do You Dip or Chew Tobacco: No; Tobacco Cessation Education Requested by Patient: No Hx Alcohol Use: No Hx Substance Use: No Preferred Language: Kazakh Communication Ability: Effective Sledger Required: No Beliefs That Will Affect Care: None Current Living Situation: Spouse 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 Other Information That Helps Us Care for You: No Feels Safe at Home: Yes Safety Concerns: Feels Safe At This Time Assistive Devices: Glasses Allergies Allergies Allergy/AdvReac Type Severity Reaction Status Date / Time levofloxacin Allergy Intermediate HIVES Verified 09/04/25 18:04 Home Meds Home Medications Medication Instructions Recorded Confirmed tamsulosin 0.4 mg capsule 0.4 mg PO DAILY 02/27/19 09/04/25 donepezil 5 mg tablet 5 mg PO DAILY 09/04/25 09/04/25 finasteride 5 mg tablet 5 mg PO DAILY 09/04/25 09/04/25 lisinopril 5 mg tablet 5 mg PO DAILY 09/04/25 09/04/25 metoprolol tartrate 25 mg tablet 25 mg PO BID 09/04/25 09/04/25 rosuvastatin 20 mg tablet 20 mg PO DAILY 09/04/25 09/04/25 Previous Rx's Medication Instructions Recorded nitroglycerin 0.4 mg sublingual 0.4 mg sublingual Q5M PRN chest 03/02/19 tablet (Nitrostat) pain #25 tabs Results & Data (ED) Vital Signs Vital Signs - 24 hr 09/04/25 16:58 09/04/25 17:07 09/04/25 17:28 Temperature 36.5 C Temperature Source Oral Pulse Rate 63 63 Pulse Rate [Apical] Respiratory Rate 23 Respiratory Effort / Characteristics Non-Labored Spontaneous Respiratory Depth Normal Blood Pressure 172/90 H Blood Pressure [Right Arm] Blood Pressure Mean 117 Blood Pressure Mean [Right Arm] Pulse Oximetry 100 100 Oxygen Delivery Method Room Air Room Air Sepsis Recent Fever Within 48 Hours No Sepsis New/Unexplained Change in Mental Status No Sepsis Action Taken by Nursing No Action Required 09/04/25 18:30 09/04/25 18:30 Temperature Temperature Source Pulse Rate Pulse Rate [Apical] 60 Respiratory Rate 12 Respiratory Effort / Characteristics Non-Labored Spontaneous Respiratory Depth Normal Blood Pressure Blood Pressure [Right Arm] 143/72 H Blood Pressure Mean Blood Pressure Mean [Right Arm] 95 Pulse Oximetry 100 100 Oxygen Delivery Method Room Air Room Air Sepsis Recent Fever Within 48 Hours Sepsis New/Unexplained Change in Mental Status Sepsis Action Taken by Group Home Medications Current Medication List: was personally reviewed by me Laboratory Data Attestation: I reviewed the patient's lab results. 09/04/25 17:14 09/04/25 17:14 Lab Results 09/04/25 Range/Units 17:14 WBC 6.43 (4.8-10.8) K/ul RBC 4.54 L (4.70-6.10) M/uL Hgb 13.8 L (14.0-18.0) g/dl Hct 40.3 L (42.0-52.0) % MCV 88.8 (80.0-100.0) fL MCH 30.4 (25.0-34.0) pg MCHC 34.2 (32.0-36.0) g/dL RDW Std Deviation 40.3 (36.4-46.3) fL RDW Coeff of Mariam 12.5 (11.5-14.5) % Plt Count 168 (130-400) K/uL MPV 9.4 (9.4-12.4) fL Immature Gran % (Auto) 0.2 % Neut % (Auto) 50.9 % Lymph % (Auto) 38.6 % [place] % (Auto) 7.5 % Eos % (Auto) 2.2 % Baso % (Auto) 0.6 % Neut # (Auto) 3.28 (1.40-6.50) K/uL Lymph # (Auto) 2.48 (1.20-3.40) K/uL [place] # (Auto) 0.48 (0.11-0.59) K/uL Eos # (Auto) 0.14 (0.00-0.50) K/uL Baso # (Auto) 0.04 (0.00-0.20) K/uL Immature Gran # (Auto) 0.01 (0.01-0.20) K/uL PT 11.2 (9.0-12.0) Seconds INR 1.1 (0.9-1.1) APTT 29 (21-31) Seconds PTT Ratio 1.1 Sodium 139 (136-145) mmol/L Potassium 4.0 (3.5-5.1) mmol/L Chloride 107 (98-107) mmol/L Carbon Dioxide 21 (21-32) mmol/L Anion Gap 11 (3-11) BUN 19 (6-23) mg/dl Creatinine 0.86 (0.6-1.4) mg/dl Est Cr Clr Drug Dosing 96.0 ml/min eGFR 87.53 BUN/Creatinine Ratio 22.1 H (10-20) Glucose 119 H (70-99(Fasting)) mg/dl Calcium 9.8 (8.6-10.3) mg/dl Total Bilirubin 0.8 (0.2-1.0) mg/dl AST 20 (13-39) U/L ALT 17 (7-52) U/L Alkaline Phosphatase 57 (34-104) U/L Troponin I High Sens 4.2 (0-20) pg/ml Total Protein 7.8 (6.0-8.3) gm/dl Albumin 4.3 (3.4-5.0) gm/dl Globulin 3.5 (2.5-4.0) gm/dl Albumin/Globulin Ratio 1.2 (0.9-2) Lipase 31 (11-82) U/L Administered Medications Insulin Aspart (Insulin Aspart Per Unit Charge) 0 units SC ACHS [facility] Stop: 10/04/25 20:59 Last Admin: 09/04/25 21:14 Dose: Not Given Documented By: AUGUSTIEN Metoprolol Tartrate (Metoprolol Tartrate 25 Mg Tab) 25 mg PO BID [facility] Stop: 10/04/25 20:59 Last Admin: 09/04/25 21:57 Dose: 25 mg Documented By: AUGUSTINE Imaging Data Radiologist's Impression: Chest X-Ray 09/04/25 17:07 EXAM: Portable AP chest radiograph TECHNIQUE: AP portable radiograph of the chest was obtained. INDICATION: Chest pain Comparison: Chest radiograph September 05, 2022 FINDINGS: LINES and TUBES: None CARDIOVASCULAR: Cardiac silhouette is stably and mildly enlarged in size. Atherosclerosis of the thoracic aorta. LUNGS/PLEURA: Mild pulmonary vascular congestion and chronic interstitial lung changes appear similar to the prior. No focal consolidation identified. No significant pleural fluid. No discernible pneumothorax. OSSEOUS/OTHER: No displaced acute osseous process identified. IMPRESSION: Similar mild congestive changes of the cardiovascular system compared to the previous radiograph from 2021. Electronically signed by Sujit Shen 09-04-2025 6:35 PM Discharge Plan Visit Data Chief Complaint: Chest Pain ED Provider: Maxi Dallas Discharge Problem: Chest pain, History of CAD (coronary artery disease) Patient Disposition: Admitted As Inpatient Condition: Good Discharge Instructions Interventions: ED Discharge Assessment Last Done: 09/04/25 21:14 Discharge Problem: Chest pain Qualifiers: Chest pain type: unspecified Qualified Code(s): R07.9 - Chest pain, unspecified
[2025-09-04 17:27] LABS: Hematocrit (blood only) 40.3 % (42.0-52.0); Hemoglobin 13.8 g/dl (14.0-18.0); Immature Granulocytes # (auto) 0.01 K/uL (0.01-0.20); Immature Granulocytes % (auto) 0.2 %; Mean Corpuscular Hemoglobin 30.4 pg (25.0-34.0); Mean Corpuscular Volume 88.8 fL (80.0-100.0); Platelet Count 168 K/uL (130-400); RDW Standard Deviation 40.3 fL (36.4-46.3); Red Blood Count 4.54 M/uL (4.70-6.10); White Blood Count 6.43 K/ul (4.8-10.8)
[2025-09-04 17:44] LABS: Alanine Aminotransferase 17.0 U/L (7-52); Albumin Globulin Ratio 1.2 (0.9-2); Albumin Level 4.3 gm/dl (3.4-5.0); Alkaline Phosphatase 57.0 U/L (34-104); Anion Gap 11.0 (3-11); Bilirubin,Total 0.8 mg/dl (0.2-1.0); Blood Urea Nitrogen 19.0 mg/dl (6-23); Calcium 9.8 mg/dl (8.6-10.3); Carbon Dioxide 21.0 mmol/L (21-32); Chloride 107.0 mmol/L (98-107); Creatinine Clr Calc Pharmacy 96.0 ml/min; Globulin 3.5 gm/dl (2.5-4.0); Glucose 119.0 mg/dl (70-99(Fasting)); Lipase 31.0 U/L (11-82); Potassium 4.0 mmol/L (3.5-5.1); Sodium 139.0 mmol/L (136-145); Total Protein 7.8 gm/dl (6.0-8.3)
[2025-09-04 18:10] LABS: INR 1.1 (0.9-1.1); Partial Thromboplastin Time 29 Seconds (21-31); Prothrombin Time 11.2 Seconds (9.0-12.0)
--- NOTE | 2025-09-04 18:36 | XRay Report ---
EXAM: Portable AP chest radiograph TECHNIQUE: AP portable radiograph of the chest was obtained. INDICATION: Chest pain Comparison: Chest radiograph September 05, 2022 FINDINGS: LINES and TUBES: None CARDIOVASCULAR: Cardiac silhouette is stably and mildly enlarged in size. Atherosclerosis of the thoracic aorta. LUNGS/PLEURA: Mild pulmonary vascular congestion and chronic interstitial lung changes appear similar to the prior. No focal consolidation identified. No significant pleural fluid. No discernible pneumothorax. OSSEOUS/OTHER: No displaced acute osseous process identified. IMPRESSION: Similar mild congestive changes of the cardiovascular system compared to the previous radiograph from 2021. Electronically signed by Sujit Shen 09-04-2025 6:35 PM
--- NOTE | 2025-09-04 18:43 | History & Physical Report ---
<Statement entered by Manuelito Ruiz DO - 09/04/25 20:32> Seen And Examined See Above For Details Date of Service September 04, 2025 Assessment & Plan (1) Chest pain: (2) Coronary artery disease: (3) Status post insertion of drug-eluting stent into left anterior descending (LAD) artery: (4) Hypertension: (5) Dyslipidemia: (6) Diabetes mellitus type 2 with complications: (7) BPH (benign prostatic hypertrophy): Plan - Admit to tele for observation for r/o - Hx of Prior STEMI in 2018 with cath and CHEL x 3 to LAD, NSTEMI with cath in 09/2022 with PCI and CHEL x 1 to ramus intermedius - Trend cardiac biomarkers, initial set was negative at 4.2 - EKG reviewed as above - Check 2 D echo - Personally reviewed last stress echo from 12/27/22 showed EF of 55-59%, mild aortic valve sclerosis, mild mitral regurg, mild tricuspid regurg, no evidence of pulmonary hypertension. - If negative enzymes can consider a stress test tomorrow morning. - Consider cardiology consult - PT/OT consulted - Continue baby aspirin daily ( will need to encourage this prior to discharge), lisinopril 5 mg every morning, metoprolol tartrate 25 twice daily, rosuvastatin 20 mg every morning BPH -Continue tamsulosin 0.4 every morning Memory loss Dementia - Continue donepezil 5 mg, noted to increase this to 10 mg on 09/16 per neurology Hx CVA - MRI brain done on 08/19/25 showed bilateral frontal opacification and there was recommendation for CT of the sinuses to be done at that time. Also showing left thalamus and left pontine tiny remote lacunar infarcts. Also showed patchy nonspecific cerebral white matter T2/FLAIR hyperintense nonenhancing foci, compatible with moderate microvascular ischemic changes DVT ppx: teds, scds Lines: PIV x 1 FEN/GI:HH/DM diet CODE: Full code Dispo: From home, likely to remain in the hospital x 1-2 days I spent a total of 75 minutes with greater than 50% of that time face to face with the patient, personally reviewing all current laboratories, imaging studies, past medication reconciliation, outpatient chart review, and discussion with specialists to collaborate care for the patient excluding time spent in the performance of separately billed services or time spent by another provider/QHP. Please see attending documentation for corrections and/or additions. History of Present Illness Chief Complaint: Chest pain Primary Care Provider: Joseph Christie MD This is an 80-year-old male with PMHx of CAD, prior STEMI in 2018, CHEL x 3 to LAD, history of NSTEMI with cath in September 2022 with PCI and CHEL x 1 to ramus intermedius, HTN, HLD, DM type II, morbid obesity. He presents to the hospital today after being seen in a [facility] walk in our clinic earlier this afternoon for complaints of chest pain which started around 9 AM. Of note he was lifting a dehumidifier tank to water garcia in his home and noticed his heart pounding/palpitations during this activity earlier today. Initially rated as 10 out of 10, left sided, nonradiating, at home took 4 nitro tablets which seem to improve his pain. He did take full dose aspirin while here in the ER. Currently he has chest pain-free since being here in the hospital. Pt has not been taking baby aspirin at home because he thought that it would irritate his stomach. He is compliant with all other medications. His and son are present at bedside and supports the history. 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 Allergies Allergy/AdvReac Type Severity Reaction Status Date / Time levofloxacin Allergy Intermediate HIVES Verified 09/04/25 18:04 Home Medications Medication Instructions Recorded Confirmed Type tamsulosin 0.4 mg capsule 0.4 mg PO DAILY 02/27/19 09/04/25 History nitroglycerin 0.4 mg sublingual 0.4 mg sublingual Q5M PRN chest 03/02/19 09/04/25 Rx tablet (Nitrostat) pain #25 tabs finasteride 5 mg tablet 5 mg PO DAILY 09/04/25 09/04/25 History lisinopril 5 mg tablet 5 mg PO DAILY 09/04/25 09/04/25 History rosuvastatin 20 mg tablet 20 mg PO DAILY 09/04/25 09/04/25 History Past Med/Surg History Problem List Bilateral primary osteoarthritis of knee Right knee DJD Obesity (Chronic) H/O cataract removal with insertion of prosthetic lens (Chronic) History of total left hip arthroplasty (Chronic) "2012; Dr. Hines" Vertigo (Acute) Medical History Elevated troponin Obesity Hypertension Chest pain Morbid obesity Acute non-ST segment elevation myocardial infarction Diabetes mellitus type 2 with complications Status post insertion of drug-eluting stent into left anterior descending (LAD) artery 3 drug-eluting stents LAD 02/27/19 Coronary artery disease STEMI 02/27/19, s/p PCI LAD w 3 drug-eluting stents Dyslipidemia BPH (benign prostatic hypertrophy) Hypertension Family History Other Heart disease Social History Smoking Status: Never smoker Hx Alcohol Use: No Hx Substance Use: No Preferred Language: Bengali Communication Ability: Effective Car Cooper Required: No Beliefs That Will Affect Care: None Current Living Situation: Spouse 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 Feels Safe at Home: Yes Assistive Devices: None Review of Systems 2 Review of Systems: Constitutional: No fever, sweats or chills Eyes: No diplopia, no worsening or blurred vision ENT: normal hearing, no trouble swallowing Respiratory: No cough, sputum, dyspnea at rest or on exertion Cardiovascular: As per HPI, no current chest pain, tightness or palpitations Abdomen: No pain, nausea, vomiting, diarrhea or constipation : testicular edema R side Musculoskeletal: No joint pain, calf pain, + occasional lower extremity swelling Neurologic: No weakness, numbness/tingling, or balance problems, no recent falls Psychiatric: No anxiety or depression Skin: Reports groin rash which has gone away with use of hydrogen peroxide recently, no itch Physical Exam Physical Exam: General: awake, alert, no apparent distress, elderly white male, slow speaking Head: Normocephalic, atraumatic ENT: PERRL, EOMI, no pharyngeal exudate, mucous membranes moist Chest: Clear to auscultation, on room air, no adventitious breath sounds Cardiac: Regular rate and rhythm, Soft systolic murmur, no JVD, normal peripheral pulses, good capillary refill, + trace edema bilateral ankles Abdominal: NABS x 4 quadrants, soft, nondistended, nontender to palpation, no rebound or guarding : no testicular edema, erythema or obvious erythematous rash in skin folds Extremities: Normal inspection, + chronic venous stasis changes in bilateral lower extremities, calfs nontender to palpation Psych: Normal mood and affect Neuro: AAO x 2, not to year, strength intact bilaterally and rated 5/5, no motor deficits, speech is clear but very slow, no peripheral sensory deficits Results & Data Results & Data Vital Signs (Past 12 Hours) Vital Signs Temp Pulse Resp BP Pulse Ox O2 Del Method 09/04/25 17:28 63 09/04/25 17:07 100 Room Air 09/04/25 16:58 36.5 C 63 23 172/90 H 100 Room Air Laboratory Results 09/04/25 17:14 WBC 6.43 RBC 4.54 L Hgb 13.8 L Hct 40.3 L MCV 88.8 MCH 30.4 MCHC 34.2 RDW Std Deviation 40.3 RDW Coeff of Mariam 12.5 Plt Count 168 MPV 9.4 Immature Gran % (Auto) 0.2 Neut % (Auto) 50.9 Lymph % (Auto) 38.6 [place] % (Auto) 7.5 Eos % (Auto) 2.2 Baso % (Auto) 0.6 Neut # (Auto) 3.28 Lymph # (Auto) 2.48 [place] # (Auto) 0.48 Eos # (Auto) 0.14 Baso # (Auto) 0.04 Immature Gran # (Auto) 0.01 PT 11.2 INR 1.1 APTT 29 PTT Ratio 1.1 Sodium 139 Potassium 4.0 Chloride 107 Carbon Dioxide 21 Anion Gap 11 BUN 19 Creatinine 0.86 Est Cr Clr Drug Dosing 96.0 eGFR 87.53 BUN/Creatinine Ratio 22.1 H Glucose 119 H Calcium 9.8 Total Bilirubin 0.8 AST 20 ALT 17 Alkaline Phosphatase 57 Troponin I High Sens 4.2 Total Protein 7.8 Albumin 4.3 Globulin 3.5 Albumin/Globulin Ratio 1.2 Lipase 31 ECG Additional Comments: Sinus bradycardia, RBBB
[2025-09-04] MEDS ORDERED: GLUCOSE 40% GEL 15 GM TUBE PO PRN (21:00)
[2025-09-04] MEDS ORDERED: GLUCAGON FOR INJ 1 MG VIAL SQ PRN (21:00)
[2025-09-04] MEDS ORDERED: DEXTROSE 50% 50 ML SYRINGE IV PRN (21:00)
[2025-09-04] MEDS ORDERED: ACETAMINOPHEN 325 MG TAB PO PRN (21:00)
[2025-09-04] MEDS ORDERED: GLUCOSE 10 TAB/TUBE PO PRN (21:00)
[2025-09-04] MEDS ORDERED: CARBOHYDRATES FOR HYPOGLYCEMIA PO PRN (21:00)
[2025-09-04] MEDS ORDERED: ONDANSETRON INJ 2 MG/ML 2 ML VIAL IV PRN (21:00)
[2025-09-04] MEDS: INSULIN ASPART PER UNIT CHARGE SC SCH (21:14)
[2025-09-04 21:24] VITALS: RESP 18
[2025-09-04] MEDS ORDERED: INFLUENZA VACC TS2025-26(65y+)/PF (IIV3) 0.5mL Syr IM ONE (21:24)
[2025-09-04] MEDS: METOPROLOL TARTRATE 25 MG TAB PO SCH (21:57)
[2025-09-05 06:55] LABS: Hematocrit (blood only) 37.5 % (42.0-52.0); Hemoglobin 13.3 g/dl (14.0-18.0); Immature Granulocytes # (auto) 0.01 K/uL (0.01-0.20); Immature Granulocytes % (auto) 0.2 %; Mean Corpuscular Hemoglobin 31.3 pg (25.0-34.0); Mean Corpuscular Volume 88.2 fL (80.0-100.0); Platelet Count 156 K/uL (130-400); RDW Standard Deviation 39.6 fL (36.4-46.3); Red Blood Count 4.25 M/uL (4.70-6.10); White Blood Count 5.79 K/ul (4.8-10.8)
[2025-09-05 07:15] LABS: Anion Gap 7.0 (3-11); Blood Urea Nitrogen 20.0 mg/dl (6-23); Calcium 9.0 mg/dl (8.6-10.3); Carbon Dioxide 23.0 mmol/L (21-32); Chloride 109.0 mmol/L (98-107); Cholesterol 122.0 mg/dl (0-200); Creatinine Clr Calc Pharmacy 89.6 ml/min; Glucose 119.0 mg/dl (70-99(Fasting)); HDL Cholesterol 44.0 mg/dl; Potassium 4.1 mmol/L (3.5-5.1); Sodium 139.0 mmol/L (136-145); Triglycerides 92.0 mg/dl (0-150)
[2025-09-05] MEDS: FINASTERIDE 5 MG TAB PO SCH (08:04)
[2025-09-05] MEDS: TAMSULOSIN HCL 0.4 MG CAP PO SCH (08:04)
[2025-09-05] MEDS: ROSUVASTATIN CALCIUM 20 MG TAB PO SCH (08:04)
[2025-09-05] MEDS: DONEPEZIL HCL 5 MG TAB PO SCH (08:05)
[2025-09-05 08:35] LABS: Hemoglobin A1C 6.3 % (4.5-5.6)
--- NOTE | 2025-09-05 11:54 | Electrocardiogram Report ---
Test Reason : Blood Pressure : */* mmHG Vent. Rate : 58 BPM Atrial Rate : 58 BPM P-R Int : 214 ms QRS Dur : 132 ms QT Int : 480 ms P-R-T Axes : 92 -16 18 degrees QTcB Int : 471 ms Sinus bradycardia with sinus arrhythmia with 1st degree A-V block Right bundle branch block Cannot rule out Anteroseptal infarct (cited on or before 27-Feb-2019) Abnormal ECG When compared with ECG of 05-Sep-2022 09:30, Questionable change in initial forces of Septal leads Confirmed by Bret Ford ([id number]) on 09/05/2025 11:53:35 AM Referred By: Confirmed By: Bret Ford
--- NOTE | 2025-09-05 11:54 | XCELERA ---
[id number]
--- NOTE | 2025-09-05 11:54 | Electrocardiogram Report ---
Test Reason : Blood Pressure : */* mmHG Vent. Rate : 60 BPM Atrial Rate : 60 BPM P-R Int : 208 ms QRS Dur : 136 ms QT Int : 478 ms P-R-T Axes : -4 -30 12 degrees QTcB Int : 478 ms Sinus rhythm with occasional Premature ventricular complexes Left axis deviation Right bundle branch block Septal infarct (cited on or before 27-Feb-2019) Abnormal ECG When compared with ECG of 04-Sep-2025 17:00, (unconfirmed) Premature ventricular complexes are now Present Confirmed by Bret Ford ([id number]) on 09/05/2025 11:53:57 AM Referred By: REFERRED SELF Confirmed By: Bret Ford
--- NOTE | 2025-09-05 11:59 | Electrocardiogram Report ---
Test Reason : Blood Pressure : */* mmHG Vent. Rate : 61 BPM Atrial Rate : 61 BPM P-R Int : 216 ms QRS Dur : 130 ms QT Int : 470 ms P-R-T Axes : 51 -13 27 degrees QTcB Int : 473 ms Sinus rhythm with 1st degree A-V block Right bundle branch block Septal infarct (cited on or before 27-Feb-2019) Abnormal ECG When compared with ECG of 04-Sep-2025 20:58, (unconfirmed) Premature ventricular complexes are no longer Present Confirmed by Bret Ford ([id number]) on 09/05/2025 11:59:18 AM Referred By: REFERRED SELF Confirmed By: Bret Ford
--- NOTE | 2025-09-05 12:05 | Hospitalist Progress Note ---
Date of Service September 05, 2025 Assessment & Plan (1) Chest pain: (2) Coronary artery disease: (3) Status post insertion of drug-eluting stent into left anterior descending (LAD) artery: (4) Hypertension: (5) Dyslipidemia: (6) Diabetes mellitus type 2 with complications: (7) BPH (benign prostatic hypertrophy): Plan - Admitted with chest pain at rest and with exertion relieved by sublingual nitro - Hx of Prior STEMI in 2018 with cath and CHEL x 3 to LAD, NSTEMI with cath in 09/2022 with PCI and CHEL x 1 to ramus intermedius - Remains free from any chest pain since admission - EKG and serial troponins are unremarkable for any ACS - Check 2 D echo- showed mild concentric LVH, dyssynergic contraction of the septum consistent with conduction abnormality, LVEF is borderline reduced at 50 to 55% and aortic valve sclerosis mild without significant stenosis - Awaiting cardiology input and recommendation - PT/OT consulted- did very well with PT - Continue baby aspirin daily ( will need to encourage this prior to discharge), lisinopril 5 mg every morning, metoprolol tartrate 25 twice daily, rosuvastatin 20 mg every morning Further recommendations/discharge following cardiology evaluation BPH -Continue tamsulosin 0.4 every morning Memory loss Dementia - Continue donepezil 5 mg, noted to increase this to 10 mg on 09/16 per neurology Hx CVA - MRI brain done on 08/19/25 showed bilateral frontal opacification and there was recommendation for CT of the sinuses to be done at that time. Also showing left thalamus and left pontine tiny remote lacunar infarcts. Also showed patchy nonspecific cerebral white matter T2/FLAIR hyperintense nonenhancing foci, compatible with moderate microvascular ischemic changes DVT ppx: teds, scds Lines: PIV x 1 FEN/GI:HH/DM diet CODE: Full code Dispo: From home, likely to remain in the hospital x 1-2 days Admission and Anticipated Discharge Date Admission Date: September 04, 2025 Subjective 09/05/2025 Patient was seen and examined in telemetry unit He has significant CAD with multiple stent placement in the past and was admitted with chest pain at rest and also with exertion relieved with sublingual nitro at home Patient no more chest pain since admission. Denies any significant symptoms Has had physical therapy and did well Review of Systems Review of Systems: All systems reviewed and are unremarkable except as noted below Physical Exam Physical Exam: Sitting at the edge of the bed without any acute distress Constitutional: well developed, well nourished, + ill appearing and + obese Eyes: PERRL, conjunctivae normal, anicteric sclerae ENMT: external ear and nose normal, oropharynx normal Respiratory: no respiratory distress Auscultation: lungs clear to auscultation bilaterally Cardiovascular: Rate/Rhythm: regular rate and regular rhythm; not tachycardic Heart Sounds: normal S1 and normal S2; no murmur Extremities: + edema ( trace edema bilaterally) Gastrointestinal (Abdomen): Inspection/Auscultation: normal bowel sounds; abdomen not distended Percussion/Palpation: abdomen soft; abdomen nontender Musculoskeletal: No acute arthritis involving any of the joint Neurologic: normal touch/pain/proprioception and moves all extremities; no focal motor deficits Results & Data Results & Data Vital Signs (Past 12 Hours) Vital Signs Temp Pulse Pulse Resp BP Pulse Ox O2 Del Method 09/05/25 11:15 36.7 C 60 18 134/77 99 Room Air 09/05/25 08:00 61 09/05/25 07:09 36.8 C 56 L 18 144/71 H 98 Room Air 09/05/25 06:00 59 L 09/05/25 04:00 36.5 C 56 L 18 150/78 H 96 Room Air 09/04/25 23:59 36.5 C 61 18 97/56 L 96 Room Air Laboratory Results Short CBC 09/04/25 09/05/25 Range/Units 17:14 05:58 WBC 6.43 5.79 (4.8-10.8) K/ul Hgb 13.8 L 13.3 L (14.0-18.0) g/dl Hct 40.3 L 37.5 L (42.0-52.0) % Plt Count 168 156 (130-400) K/uL BMP 09/04/25 09/05/25 17:14 05:58 Sodium 139 139 Potassium 4.0 4.1 Chloride 107 109 H Carbon Dioxide 21 23 BUN 19 20 Creatinine 0.86 0.86 Glucose 119 H 119 H Calcium 9.8 9.0 Liver Function 09/04/25 Range/Units 17:14 Total Bilirubin 0.8 (0.2-1.0) mg/dl AST 20 (13-39) U/L ALT 17 (7-52) U/L Alkaline Phosphatase 57 (34-104) U/L Albumin 4.3 (3.4-5.0) gm/dl Medications Administered Current Inpatient Medications Acetaminophen (Acetaminophen 325 Mg Tab) 650 mg PO Q4H PRN PRN Reason: Moderate Pain (Scale 4, 5, 6) Stop: 10/04/25 20:59 Dextrose (Dextrose 50% 50 Ml Syringe) 25 - 50 ml IV UD PRN; Protocol PRN Reason: Hypoglycemia Protocol Stop: 10/04/25 20:59 Donepezil HCl (Donepezil Hcl 5 Mg Tab) 5 mg PO DAILY DENICE Stop: 10/05/25 08:59 Last Admin: 09/05/25 08:05 Dose: 5 mg Finasteride (Finasteride 5 Mg Tab) 5 mg PO DAILY DENICE Stop: 10/05/25 08:59 Last Admin: 09/05/25 08:04 Dose: 5 mg Glucagon (Glucagon For Inj 1 Mg Vial) 1 mg SQ UD PRN; Protocol PRN Reason: Hypoglycemia Protocol Stop: 10/04/25 20:59 Glucose (Glucose 40% Gel 15 Gm Tube) 15 - 30 gm PO UD PRN; Protocol PRN Reason: Hypoglycemia Protocol Stop: 10/04/25 20:59 Glucose (Glucose 10 Tab/Tube) 4 - 8 tab PO UD PRN; Protocol PRN Reason: Hypoglycemia Protocol Stop: 10/04/25 20:59 Insulin Aspart (Insulin Aspart Per Unit Charge) 0 units SC ACHS DENICE Stop: 10/04/25 20:59 Last Admin: 09/05/25 08:33 Dose: 6 units Lisinopril (Lisinopril 5 Mg Tab) 5 mg PO DAILY DENICE Stop: 10/05/25 08:59 Last Admin: 09/05/25 08:04 Dose: 5 mg Metoprolol Tartrate (Metoprolol Tartrate 25 Mg Tab) 25 mg PO BID DENICE Stop: 10/04/25 20:59 Last Admin: 09/05/25 08:04 Dose: 25 mg Miscellaneous (Carbohydrates For Hypoglycemia ) 15 - 30 gm PO UD PRN PRN Reason: Hypoglycemia Protocol Stop: 10/04/25 20:59 Ondansetron HCl (Ondansetron Inj 2 Mg/Ml 2 Ml Vial) 4 mg IV Q4H PRN PRN Reason: Nausea And Vomiting Stop: 10/04/25 20:59 Rosuvastatin Calcium (Rosuvastatin Calcium 20 Mg Tab) 20 mg PO DAILY [facility] Stop: 10/05/25 08:59 Last Admin: 09/05/25 08:04 Dose: 20 mg Tamsulosin HCl (Tamsulosin Hcl 0.4 Mg Cap) 0.4 mg PO DAILY [facility] Stop: 10/05/25 08:59 Last Admin: 09/05/25 08:04 Dose: 0.4 mg
--- NOTE | 2025-09-05 13:53 | Cardiology Consultation ---
Date of Consultation September 05, 2025 Assessment & Plan (1) Chest pain: (2) History of CAD (coronary artery disease): (3) Hypertension: Plan Assessment: 80 year old male with known CAD (prior stenting to LAD x3 in 2019 and ramus x1 in 2021) presents with sharp stabbing chest pain to the left anterior chest wall at rest. EKG with no acute changes. Troponin negative x2. Notably hypertensive on admission. Cardiology consulted for further evaluation and recommendations. Plan: -Patient with known CAD and prior PCI with CHEL to the LAD x3 in 2019 and repeat cath in 2021 with PCI and CHEL to Ramus intermediate x1 presents with acute onset chest pain. -Patient had a total of 4 SL NTG prior to time of arrival with resolution of chest pain. he was seen in Urgent care while having discomfort EKG with no acute ST-T wave changes. Repeat EKG in ER with no acute changes. -High sensitivity troponin negative x2 -Echocardiogram shows preserved LVEF and improved wall motion when compared to prior study dated in 2021 pre-cath. -History of recent negative nuclear stress test 04/28/2025 showing prior infarct, but no new ischemia. -continue Metoprolol tartrate, Rosuvastatin, Lisinopril and ASA 81mg daily. Stressed the importance of using antiplatelet therapy in the setting of coronary disease with multiple stents. -given prior history, current testing and elevated blood pressures recommend tighter blood pressure control. -Recommend starting low dose Isosorbide mononitrate 30mg PO QD -OP cardiology follow up in 4-6 weeks. Case has been discussed with Dr. Piedra. Further recommendations regarding plan of care as per his assessment. I spent a total of 50 minutes on the date of service in preparation, delivery, documentation of the care provided to the patient excluding any time spent in the performance of separately billed services. DARRELL Khalil [facility] Cardiology [facility] Supervising Physician Co-Signing Physician Notes Attending attestation: Case reviewed with the advanced practitioner. I have personally performed a history and physical examination on the patient. I have reviewed the advanced practitioner's documentation on the date of service referenced in note, and I agree with, and take responsibility for the plan of care. Subjective: Patient accompanied by his spouse, Cassia, during my assessment. He was feeling well without any additional chest discomfort. Initial blood pressure on arrival today 172/92, most recent down to 116/68. Telemetry reveals sinus rhythm in the 60s with occasional PVCs. Exam: Cardiovascular: Regular rhythm, no murmur, no edema Pulmonary: Lungs clear to auscultation bilaterally Data: EKG performed today revealed sinus rhythm with chronic right bundle branch block, no acute ischemic changes Impression/ Plan: Chest discomfort in the setting of known CAD Hypertension - Workup thus far reassuring with high sensitive troponin negative x 2. Blood pressure was elevated but improved at present. - Echocardiogram findings of the septal wall motion abnormality consistent with the scar noted on the nuclear stress test performed in April,. - Add isosorbide mononitrate 30 mg to his current medication regimen -- add back aspirin enteric-coated 81 mg daily. The outpatient progress note from his most recent visit in June 2025 specifically states that he is to be on aspirin 81 mg daily. He had previously been on dual antiplatelet therapy with aspirin and Brilinta after his non-ST segment elevation myocardial infarction that took place in September 2022. At that time drug-eluting stent to the ramus intermedius was performed. Brilinta was discontinued in August 2023 having completed a year of dual antiplatelet therapy. -Aspirin was discontinued from his outpatient medication list in August with patient stating he was not taking it. If he has documented GI upset, could consider adding a proton pump inhibitor or Pepcid. Otherwise, aspirin is not a negotiable medication with him having had 3 drug-eluting stents to the LAD in 2018 and an additional drug-eluting stent in 2021 -No additional ischemic workup felt to be indicated at present If patient does well on aspirin plus isosorbide mononitrate anticipate possible discharge tomorrow. Ruy Piedra DO History of Present Illness Reason for Consultation: Chest pain Requesting Physician: [facility] hospitalist Attending Physician: Dustin Olivia MD History of Present Illness HPI: patient is a 80 year old male with PMHx as documented below that presents with acute concerns of chest pain. Patient had been seen earlier on the date of admission at a [facility] walk-in clinic for complaints of persistent chest pain all day. He described the pain as a sharp jabbing sensation under the left side of his anterior chest. Denies any other associated symptoms. Pain did not get worse with exertion. He reports that he took a total of 4 SL NTG spaced over the course 5 minutes each. He presented to urgent care who obtained an EKG showing SB with Right bundle branch block and prompted him to come to the ER. patient has been chest pain free since arrival to the ER and remains chest pain free at this time. He was not taking his ASA 81mg at home out of fear it would irritate his stomach. Cardiac Problems: 1. Coronary artery disease a. Prior STEMI (2018) with CATH and CHEL x3 to LAD b. History of NSTEMI with CATH (09/2022) with PCI and CHEL x1 to ramus intermedius 2. HLD 3. Type 2 diabetes mellitus (Last HbA1c 6.8%) 4. Morbid obesity 5. Right BBB 6. Cognitive impairment last seen in our OP office by DARRELL Jean 06/21/2025 stable from a cardiac perspective. Of note, patient had a recent nuclear stress test (04/28/25) showed [id number] sized fixed anteroseptal perfusion defect without superimposed ischemia suggestive of myocardial scar from prior infarct. EKG on admission Sinus bradycardia with Right BBB and 1st degree AV block Rate 58bpm. QTC 471ms. High sensitivity troponin negative x 2 Review of Blood pressure trend shows that patient was hypertensive with systolic readings in the 170's upon arrival. Trending down. REview of telemetry shows SB/SR rates 50's to 70's. No acute events overnight. no ectopy or arrhythmia noted. Allergies Allergy/AdvReac Type Severity Reaction Status Date / Time levofloxacin Allergy Intermediate HIVES Verified 09/04/25 18:04 Home Medications Medication Instructions Recorded Confirmed Type tamsulosin 0.4 mg capsule 0.4 mg PO DAILY 02/27/19 09/04/25 History nitroglycerin 0.4 mg sublingual 0.4 mg sublingual Q5M PRN chest 03/02/19 09/04/25 Rx tablet (Nitrostat) pain #25 tabs donepezil 5 mg tablet 5 mg PO DAILY 09/04/25 09/04/25 History finasteride 5 mg tablet 5 mg PO DAILY 09/04/25 09/04/25 History lisinopril 5 mg tablet 5 mg PO DAILY 09/04/25 09/04/25 History metoprolol tartrate 25 mg tablet 25 mg PO BID 09/04/25 09/04/25 History rosuvastatin 20 mg tablet 20 mg PO DAILY 09/04/25 09/04/25 History Patient History Medical History Elevated troponin Obesity Hypertension Chest pain Morbid obesity Acute non-ST segment elevation myocardial infarction Diabetes mellitus type 2 with complications Status post insertion of drug-eluting stent into left anterior descending (LAD) artery 3 drug-eluting stents LAD 02/27/19 Coronary artery disease STEMI 02/27/19, s/p PCI LAD w 3 drug-eluting stents Dyslipidemia BPH (benign prostatic hypertrophy) Hypertension Family History Other Heart disease Social History Smoking Status: Never smoker Second Hand Exposure: No; Do You Dip or Chew Tobacco: No; Tobacco Cessation Education Requested by Patient: No Hx Alcohol Use: No Hx Substance Use: No Preferred Language: Slovenian Communication Ability: Effective Business Partner Required: No Beliefs That Will Affect Care: None Current Living Situation: Spouse 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 Other Information That Helps Us Care for You: No Feels Safe at Home: Yes Safety Concerns: Feels Safe At This Time Assistive Devices: Glasses Review of Systems Review of Systems: All systems reviewed & are unremarkable except as noted in HPI & below Physical Exam Constitutional: well developed and well nourished; no acute distress and not ill appearing Neck: normal visual inspection and trachea midline Respiratory: normal respiratory effort, lungs clear to auscultation Cardiovascular: Rate/Rhythm: regular rate and regular rhythm Heart Sounds: normal S1 and normal S2; no murmur Vessels: dorsalis pedis pulses present; no JVD Extremities: no edema Skin: no rashes, warm and dry Psychiatric: A+Ox3, euthymic affect Results & Data Vital Signs (Past 12 Hours) Vital Signs Temp Pulse Pulse Resp BP Pulse Ox O2 Del Method 09/05/25 11:15 36.7 C 60 18 134/77 99 Room Air 09/05/25 08:00 61 09/05/25 07:09 36.8 C 56 L 18 144/71 H 98 Room Air 09/05/25 06:00 59 L 09/05/25 04:00 36.5 C 56 L 18 150/78 H 96 Room Air Laboratory Results Cardiac Enzymes 09/04/25 09/04/25 Range/Units 17:14 19:08 AST 20 (13-39) U/L Troponin I High Sens 4.2 4.4 (0-20) pg/ml Coagulation 09/04/25 Range/Units 17:14 PT 11.2 (9.0-12.0) Seconds APTT 29 (21-31) Seconds Lipids 09/05/25 Range/Units 05:58 Triglycerides 92 (0-150) mg/dl Cholesterol 122 (0-200) mg/dl HDL Cholesterol 44 mg/dl Cholesterol/HDL Ratio 2.8 (0-5) CBC 09/04/25 09/05/25 Range/Units 17:14 05:58 WBC 6.43 5.79 (4.8-10.8) K/ul RBC 4.54 L 4.25 L (4.70-6.10) M/uL Hgb 13.8 L 13.3 L (14.0-18.0) g/dl Hct 40.3 L 37.5 L (42.0-52.0) % Plt Count 168 156 (130-400) K/uL Neut # (Auto) 3.28 2.90 (1.40-6.50) K/uL Lymph # (Auto) 2.48 2.11 (1.20-3.40) K/uL White # (Auto) 0.48 0.60 H (0.11-0.59) K/uL Eos # (Auto) 0.14 0.14 (0.00-0.50) K/uL Baso # (Auto) 0.04 0.03 (0.00-0.20) K/uL Comprehensive Metabolic Panel 09/04/25 09/05/25 Range/Units 17:14 05:58 Sodium 139 139 (136-145) mmol/L Potassium 4.0 4.1 (3.5-5.1) mmol/L Chloride 107 109 H (98-107) mmol/L Carbon Dioxide 21 23 (21-32) mmol/L BUN 19 20 (6-23) mg/dl Creatinine 0.86 0.86 (0.6-1.4) mg/dl Glucose 119 H 119 H (70-99(Fasting)) mg/dl Calcium 9.8 9.0 (8.6-10.3) mg/dl AST 20 (13-39) U/L ALT 17 (7-52) U/L Alkaline Phosphatase 57 (34-104) U/L Total Protein 7.8 (6.0-8.3) gm/dl Albumin 4.3 (3.4-5.0) gm/dl Intake and Output 09/04/25 09/05/25 09/05/25 22:59 06:59 14:59 Intake Total 360 / 360 Output Total 475 / 475 250 / 250 Balance -455 / -455 110 / 110 Intake: Oral 360 / 360 Output: Urine 475 / 475 250 / 250 Other: Weight 114.8 kg Weight Measurement Method Built in [facility] Diagnostic Findings Echocardiogram 09/05/2025: Mild concentric LVH LVEF 50-55% Dyssynergic contraction of the septum consistent with conduction abnormality Mild aortic valve sclerosis without stenosis Compared to prior images dated 09/05/2022, the focal apical and apical septal wall motion abnormality noted at that time has resolved with improvement in LVEF. Septal wall motion abnormality persist. Nuclear Stress Test 04/28/25 The pharmacologic myocardial perfusion imaging study reveals a [id number] sized fixed anteroseptal perfusion defect suggestive of scar in this territory without superimposed ischemia. Gated SPECT imaging reveals normal myocardial thickening and wall motion. The left ventricular ejection fraction was calculated to be 53% EKG 10/15/24 Sinus bradycardia RBBB 56 bpm Qtc 428 Stress (Exercise) ECHO 12/24/22 Exercise stress echo is positive for inducible ischemia involving the apical anterospetum and apex. The stress test was terminated due to dyspnea. Exercise capacity is below average . There was accelerated heart rate response to exercise. Blood pressure response to exercise was hypertensive. Resting Study: The qualitative LV ejection fraction is 55-59% (normal). Mild aortic valve sclerosis is present. Mild mitral regurgitation is present. Mild tricuspid regurgitation is present. There is no evidence of pulmonary hypertension. The aortic root is mildly enlarged, 4.1 cm. This study has what is deemed to be a "significant abnormality" consistent with ACT 112. See additional documentation regarding notification of patient and ordering provider. Cardiac CATH 09/05/22 Summary: Widely patent prior stents. Severe focal disease in the ramus, this is the culprit lesion. Successful PCI to the ramus branch with a single small caliber drug-eluting stent. Dual antiplatelet therapy for at least 1 but preferably up to 2 years. Guideline directed medical therapy for secondary prevention of coronary disease to include; low-dose aspirin, high intensity statin therapy, beta-jackie, plus or minus SHAHZAD inhibitor/ARB. Hemodynamics Rest Ao:: 112/69 mmHg, mean 102 mmHg Final Ao: 141/74 mmHg, mean 96 mmHg Cardiac CATH 08/01/20 Summary: The patient has widely patent coronary anatomy including the previous stented sites within the LAD. Normal LV function. PG Care Time/CCT Total # of Minutes Spent Total Time Spent with Patient: Total time spent is greater than 50% in coordination of care (as documented) at patient's floor/unit and/or counseling patient: Coding Level of Care Code 20298 IN/OBS CONSULT LVL 5,80M Diagnoses Chest pain R07.9 Chest pain type: unspecified History of CAD (coronary artery disease) Z86.79 Hypertension I10 Time Spent (min) 50 (1) Chest pain Chest pain type: unspecified Qualified Code(s): R07.9 - Chest pain, unspecified
[2025-09-05] MEDS: ISOSORBIDE MONO EXTENDED REL 30 MG TABCR PO SCH (16:04)
[2025-09-05] MEDS ORDERED: MELATONIN 3 MG TAB PO PRN (17:26)
[2025-09-05] MEDS: ASPIRIN 81 MG ECTAB PO SCH (18:34)
[2025-09-06 08:02] VITALS: PULSE 60; TEMP 97.5; O2SAT 96
[2025-09-06 08:42] LABS: Anion Gap 6.0 (3-11); Blood Urea Nitrogen 25.0 mg/dl (6-23); Calcium 9.3 mg/dl (8.6-10.3); Carbon Dioxide 25.0 mmol/L (21-32); Chloride 107.0 mmol/L (98-107); Creatinine Clr Calc Pharmacy 77.8 ml/min; Glucose 151.0 mg/dl (70-99(Fasting)); Potassium 4.4 mmol/L (3.5-5.1); Sodium 138.0 mmol/L (136-145)
--- NOTE | 2025-09-06 10:42 | Cardiology Progress Note ---
Date of Service September 06, 2025 Assessment & Plan (1) Chest pain: (2) History of CAD (coronary artery disease): Plan Assessment: 80 year old male with known CAD (prior stenting to LAD x3 in 2019 and ramus x1 in 2021) presents with sharp stabbing chest pain to the left anterior chest wall at rest. EKG with no acute changes. Troponin negative x2. Notably hypertensive on admission. Cardiology consulted for further evaluation and recommendations. Plan: -Patient with known CAD and prior PCI with CHEL to the LAD x3 in 2019 and repeat cath in 2021 with PCI and CHEL to Ramus intermediate x1 presents with acute onset chest pain. -Patient had a total of 4 SL NTG prior to time of arrival with resolution of chest pain. he was seen in Urgent care while having discomfort EKG with no acute ST-T wave changes. Repeat EKG in ER with no acute changes. -High sensitivity troponin negative x2 -Echocardiogram shows preserved LVEF and improved wall motion when compared to prior study dated in 2021 pre-cath. -History of recent negative nuclear stress test 04/28/2025 showing prior infarct, but no new ischemia. -continue Metoprolol tartrate, Rosuvastatin, Lisinopril and ASA 81mg daily. Patient was restarted on Aspirin therapy and stressed the importance of remaining on anti-platelet therapy in the setting of known coronary disease with prior stents. If patient is having GI upset, would recommend he be started on a PPI. -given prior history, current testing and elevated blood pressures recommend tighter blood pressure control. He was started on Imdur and tolerating well. Remains chest pain free. Continue upon discharge. -OP cardiology follow up in 4-6 weeks. office will contact patient to arrange. Case has been discussed with Dr. Ferrer. Further recommendations regarding plan of care as per his assessment. I spent a total of 30 minutes on the date of service in preparation, delivery, documentation of the care provided to the patient excluding any time spent in the performance of separately billed services. DARRELL Khalil [facility] Cardiology [facility] Admission and Anticipated Discharge Date Admission Date: September 04, 2025 Subjective 09/06/2025: Patient seen and examined in follow up today. Feeling well from a cardiac perspective. Offers no acute cardiac concerns. Remains chest pain free, has been up and ambulating around the room without concern. Labs, vitals, diagnostics, telemetry and documentation reviewed. Telemetry reviewed showing Sinus bradycardia/sinus Rhythm rate 50-60's. No acute events overnight Review of Systems Review of Systems: All systems reviewed & are unremarkable except as noted in HPI & below Physical Exam Constitutional: well developed and well nourished; no acute distress and not ill appearing Neck: normal visual inspection and trachea midline Respiratory: normal respiratory effort, lungs clear to auscultation Cardiovascular: Rate/Rhythm: regular rate and regular rhythm Heart Sounds: normal S1 and normal S2; no murmur Vessels: dorsalis pedis pulses present; no JVD Extremities: no edema Skin: no rashes, warm and dry Psychiatric: A+Ox3, euthymic affect Results & Data Vital Signs (Past 12 Hours) Vital Signs Temp Pulse Pulse Resp BP Pulse Ox O2 Del Method 09/06/25 07:28 36.4 C L 60 18 107/61 96 Room Air 09/06/25 07:00 52 L 09/06/25 06:09 65 09/06/25 04:02 36.6 C 52 L 18 104/57 L 94 Room Air 09/06/25 00:01 36.4 C L 60 18 99/53 L 90 Room Air Laboratory Results Comprehensive Metabolic Panel 09/06/25 Range/Units 08:08 Sodium 138 (136-145) mmol/L Potassium 4.4 (3.5-5.1) mmol/L Chloride 107 (98-107) mmol/L Carbon Dioxide 25 (21-32) mmol/L BUN 25 H (6-23) mg/dl Creatinine 0.99 (0.6-1.4) mg/dl Glucose 151 H (70-99(Fasting)) mg/dl Calcium 9.3 (8.6-10.3) mg/dl Intake and Output 09/05/25 09/06/25 09/06/25 22:59 06:59 14:59 Other: # Unmeasured Voids 2 PG Care Time/CCT Total # of Minutes Spent Total Time Spent with Patient: Total time spent is greater than 50% in coordination of care (as documented) at patient's floor/unit and/or counseling patient: Prolonged Care Time Patient seen and chart reviewed. Assessment and plan as outlined by advanced provider above. Discussed and personally endorsed. Patient without focal complaint and tolerating current medical changes would continue medical therapies Coding Level of Care Code 43760 SUB INP/OBS CARE 3/50MIN Diagnoses Chest pain R07.9 Chest pain type: unspecified History of CAD (coronary artery disease) Z86.79 (1) Chest pain Chest pain type: unspecified Qualified Code(s): R07.9 - Chest pain, unspecified
--- NOTE | 2025-09-06 11:57 | Hospitalist Progress Note ---
Date of Service September 06, 2025 Assessment & Plan (1) Chest pain: (2) Coronary artery disease: (3) Status post insertion of drug-eluting stent into left anterior descending (LAD) artery: (4) Hypertension: (5) Dyslipidemia: (6) Diabetes mellitus type 2 with complications: (7) BPH (benign prostatic hypertrophy): Plan - Admitted with chest pain at rest and with exertion relieved by sublingual nitro - Hx of Prior STEMI in 2018 with cath and CHEL x 3 to LAD, NSTEMI with cath in 09/2022 with PCI and CHEL x 1 to ramus intermedius - Remains free from any chest pain since admission - EKG and serial troponins are unremarkable for any ACS - Check 2 D echo- showed mild concentric LVH, dyssynergic contraction of the septum consistent with conduction abnormality, LVEF is borderline reduced at 50 to 55% and aortic valve sclerosis mild without significant stenosis - Awaiting cardiology input and recommendation - PT/OT consulted- did very well with PT - Continue baby aspirin daily ( will need to encourage this prior to discharge), lisinopril 5 mg every morning, metoprolol tartrate 25 twice daily, rosuvastatin 20 mg every morning Further recommendations/discharge following cardiology evaluation Appreciate cardiology input and recommendation He has been started with low-dose aspirin and also small dose of Imdur daily Remains otherwise stable and denies any cardiac symptoms even with ambulation Will be discharged home this afternoon BPH -Continue tamsulosin 0.4 every morning Memory loss Dementia - Continue donepezil 5 mg, noted to increase this to 10 mg on 09/16 per neurology Hx CVA - MRI brain done on 08/19/25 showed bilateral frontal opacification and there was recommendation for CT of the sinuses to be done at that time. Also showing left thalamus and left pontine tiny remote lacunar infarcts. Also showed patchy nonspecific cerebral white matter T2/FLAIR hyperintense nonenhancing foci, compatible with moderate microvascular ischemic changes DVT ppx: teds, scds Lines: PIV x 1 FEN/GI:HH/DM diet CODE: Full code Dispo: From home, likely to remain in the hospital x 1-2 days Admission and Anticipated Discharge Date Admission Date: September 04, 2025 Subjective 09/05/2025 Patient was seen and examined in telemetry unit He has significant CAD with multiple stent placement in the past and was admitted with chest pain at rest and also with exertion relieved with sublingual nitro at home Patient no more chest pain since admission. Denies any significant symptoms Has had physical therapy and did well 09/07/2025 The patient was seen and examined in telemetry unit He has been stable without any chest pain and/or palpitation Has been ambulating in the room without any difficulties He will be discharged home this afternoon Review of Systems Review of Systems: All systems reviewed and are unremarkable except as noted below Physical Exam Physical Exam: Sitting at the edge of the bed without any acute distress Constitutional: well developed, well nourished, + ill appearing and + obese Eyes: PERRL, conjunctivae normal, anicteric sclerae ENMT: external ear and nose normal, oropharynx normal Respiratory: no respiratory distress Auscultation: lungs clear to auscultation bilaterally Cardiovascular: Rate/Rhythm: regular rate and regular rhythm; not tachycardic Heart Sounds: normal S1 and normal S2; no murmur Extremities: + edema ( trace edema bilaterally) Gastrointestinal (Abdomen): Inspection/Auscultation: normal bowel sounds; abdomen not distended Percussion/Palpation: abdomen soft; abdomen nontender Neurologic: normal touch/pain/proprioception and moves all extremities; no focal motor deficits Lymphatic: no cervical or axillary lymphadenopathy Results & Data Results & Data Vital Signs (Past 12 Hours) Vital Signs Temp Pulse Pulse Resp BP Pulse Ox O2 Del Method 09/06/25 07:28 36.4 C L 60 18 107/61 96 Room Air 09/06/25 07:00 52 L 09/06/25 06:09 65 09/06/25 04:02 36.6 C 52 L 18 104/57 L 94 Room Air 09/06/25 00:01 36.4 C L 60 18 99/53 L 90 Room Air Laboratory Results [facility] 09/06/25 08:08 Sodium 138 Potassium 4.4 Chloride 107 Carbon Dioxide 25 BUN 25 H Creatinine 0.99 Glucose 151 H Calcium 9.3 Medications Administered Current Inpatient Medications Acetaminophen (Acetaminophen 325 Mg Tab) 650 mg PO Q4H PRN PRN Reason: Moderate Pain (Scale 4, 5, 6) Stop: 10/04/25 20:59 Aspirin (Aspirin 81 Mg Ectab) [facility] [place]: 10/05/25 16:59 Last Admin: 09/06/25 08:32 Dose: 81 mg Dextrose (Dextrose 50% 50 Ml Syringe) 25 - 50 ml IV UD PRN; Protocol PRN Reason: Hypoglycemia Protocol Stop: 10/04/25 20:59 Donepezil HCl (Donepezil Hcl 5 Mg Tab) 5 mg PO DAILY DENICE Stop: 10/05/25 08:59 Last Admin: 09/06/25 08:33 Dose: Not Given Finasteride (Finasteride 5 Mg Tab) 5 mg PO DAILY DENICE Stop: 10/05/25 08:59 Last Admin: 09/06/25 08:32 Dose: 5 mg Glucagon (Glucagon For Inj 1 Mg Vial) 1 mg SQ UD PRN; Protocol PRN Reason: Hypoglycemia Protocol Stop: 10/04/25 20:59 Glucose (Glucose 40% Gel 15 Gm Tube) 15 - 30 gm PO UD PRN; Protocol PRN Reason: Hypoglycemia Protocol Stop: 10/04/25 20:59 Glucose (Glucose 10 Tab/Tube) 4 - 8 tab PO UD PRN; Protocol PRN Reason: Hypoglycemia Protocol Stop: 10/04/25 20:59 Insulin Aspart (Insulin Aspart Per Unit Charge) 0 units SC ACHS DENICE Stop: 10/04/25 20:59 Last Admin: 09/06/25 08:30 Dose: 5 units Isosorbide Mononitrate (Isosorbide Camp Extended Rel 30 Mg Tabcr) 30 mg PO QAM DENICE Stop: 10/05/25 15:14 Last Admin: 09/06/25 08:32 Dose: 30 mg Lisinopril (Lisinopril 5 Mg Tab) 5 mg PO DAILY DENICE Stop: 10/05/25 08:59 Last Admin: 09/06/25 08:32 Dose: 5 mg Melatonin (Melatonin 3 Mg Tab) 3 mg PO HS PRN PRN Reason: Sleep Stop: 10/05/25 17:25 Metoprolol Tartrate (Metoprolol Tartrate 25 Mg Tab) 25 mg PO BID DENICE Stop: 10/04/25 20:59 Last Admin: 09/06/25 08:32 Dose: 25 mg Miscellaneous (Carbohydrates For Hypoglycemia ) 15 - 30 gm PO UD PRN PRN Reason: Hypoglycemia Protocol Stop: 10/04/25 20:59 Ondansetron HCl (Ondansetron Inj 2 Mg/Ml 2 Ml Vial) 4 mg IV Q4H PRN PRN Reason: Nausea And Vomiting Stop: 10/04/25 20:59 Rosuvastatin Calcium (Rosuvastatin Calcium 20 Mg Tab) 20 mg PO DAILY DENICE Stop: 10/05/25 08:59 Last Admin: 09/06/25 08:32 Dose: 20 mg Tamsulosin HCl (Tamsulosin Hcl 0.4 Mg Cap) 0.4 mg PO DAILY DENICE Stop: 10/05/25 08:59 Last Admin: 09/06/25 08:32 Dose: 0.4 mg
[2025-09-06 12:06] VITALS: BP 105/57
--- NOTE | 2025-09-07 08:28 | Discharge Summary ---
Date of Service September 07, 2025 Admission HPI Per Admitting Provider This is an 80-year-old male with PMHx of CAD, prior STEMI in 2019, CHEL x 3 to LAD, history of NSTEMI with cath in September 2022 with PCI and CHEL x 1 to ramus intermedius, HTN, HLD, DM type II, morbid obesity. He presents to the hospital today after being seen in a [facility] walk in our clinic earlier this afternoon for complaints of chest pain which started around 9 AM. Of note he was lifting a dehumidifier tank to water garcia in his home and noticed his heart pounding/palpitations during this activity earlier today. Initially rated as 10 out of 10, left sided, nonradiating, at home took 4 nitro tablets which seem to improve his pain. He did take full dose aspirin while here in the ER. Currently he has chest pain-free since being here in the hospital. Pt has not been taking baby aspirin at home because he thought that it would irritate his stomach. He is compliant with all other medications. His and son are present at bedside and supports the history. 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 Admission Exam Per Admitting Provider Physical Exam: General: awake, alert, no apparent distress, elderly white male, slow speaking Head: Normocephalic, atraumatic ENT: PERRL, EOMI, no pharyngeal exudate, mucous membranes moist Chest: Clear to auscultation, on room air, no adventitious breath sounds Cardiac: Regular rate and rhythm, Soft systolic murmur, no JVD, normal peripheral pulses, good capillary refill, + trace edema bilateral ankles Abdominal: NABS x 4 quadrants, soft, nondistended, nontender to palpation, no rebound or guarding : no testicular edema, erythema or obvious erythematous rash in skin folds Extremities: Normal inspection, + chronic venous stasis changes in bilateral lower extremities, calfs nontender to palpation Psych: Normal mood and affect Neuro: AAO x 2, not to year, strength intact bilaterally and rated 5/5, no motor deficits, speech is clear but very slow, no peripheral sensory deficits Principal Diagnosis Chest painno ACS, CAD status post drug-eluting stents placement in the past Discharge Exam Sitting at the edge of the bed without any acute distress Constitutional well developed, well nourished, + ill appearing and + obese Eyes PERRL, conjunctivae normal, anicteric sclerae ENMT external ear and nose normal, oropharynx normal Respiratory no respiratory distress Auscultation: lungs clear to auscultation bilaterally Cardiovascular Rate/Rhythm: regular rate and regular rhythm; not tachycardic Heart Sounds: normal S1 and normal S2; no murmur Extremities: + edema ( trace edema bilaterally) Gastrointestinal (Abdomen) Inspection/Auscultation: normal bowel sounds; abdomen not distended Percussion/Palpation: abdomen soft; abdomen nontender Neurologic normal touch/pain/proprioception and moves all extremities; no focal motor deficits Lymphatic no cervical or axillary lymphadenopathy Discharge Data Allergies Allergy/AdvReac Type Severity Reaction Status Date / Time levofloxacin Allergy Intermediate HIVES Verified 09/04/25 18:04 Consultations 09/04/25 18:16 ED Decision to Admit Stat 09/05/25 13:13 Consult Cardiology Routine Hospital Course (1) Chest pain: (2) Coronary artery disease: (3) Status post insertion of drug-eluting stent into left anterior descending (LAD) artery: (4) Hypertension: (5) Dyslipidemia: (6) Diabetes mellitus type 2 with complications: (7) BPH (benign prostatic hypertrophy): Plan - Admitted with chest pain at rest and with exertion relieved by sublingual nitro - Hx of Prior STEMI in 2018 with cath and CHEL x 3 to LAD, NSTEMI with cath in 09/2022 with PCI and CHEL x 1 to ramus intermedius - Remains free from any chest pain since admission - EKG and serial troponins are unremarkable for any ACS - Check 2 D echo- showed mild concentric LVH, dyssynergic contraction of the septum consistent with conduction abnormality, LVEF is borderline reduced at 50 to 55% and aortic valve sclerosis mild without significant stenosis - Awaiting cardiology input and recommendation - PT/OT consulted- did very well with PT - Continue baby aspirin daily ( will need to encourage this prior to discharge), lisinopril 5 mg every morning, metoprolol tartrate 25 twice daily, rosuvastatin 20 mg every morning Further recommendations/discharge following cardiology evaluation Appreciate cardiology input and recommendation He has been started with low-dose aspirin and also small dose of Imdur daily Remains otherwise stable and denies any cardiac symptoms even with ambulation Will be discharged home this afternoon BPH -Continue tamsulosin 0.4 every morning Memory loss Dementia - Continue donepezil 5 mg, noted to increase this to 10 mg on 09/16 per neurology Hx CVA - MRI brain done on 08/19/25 showed bilateral frontal opacification and there was recommendation for CT of the sinuses to be done at that time. Also showing left thalamus and left pontine tiny remote lacunar infarcts. Also showed patchy nonspecific cerebral white matter T2/FLAIR hyperintense nonenhancing foci, compatible with moderate microvascular ischemic changes DVT ppx: teds, scds Lines: PIV x 1 FEN/GI:HH/DM diet CODE: Full code Dispo: From home, likely to remain in the hospital x 1-2 days Total Time Total Time Spent Total Time Spent (In Minutes): 35 Minutes Discharge Plan Discharge Items Patient Disposition: Home - Self-Care Reason For Visit: CHEST PAIN Discharge Diagnosis: Chest painno ACS, CAD status post drug-eluting stents placement in the past Condition on Discharge: Good Activity: Resume your previous activity Non-emergency contact: Primary Care Provider Call non-emergency contact if: you have any medication questions and your symptoms worsen Follow-up/Referrals: Joseph Christie MD [Primary Care Provider] - 09/12/25 9:00 am (Date & Time 09/12/2025 9:00 AM Provider: Joseph Christie MD [facility] ) Diet: Heart Healthy Addtl Attending Provider Instructions: Please take precautions to avoid falls Take your medications as advised Your new medications will be aspirin 81 mg daily and isosorbide mononitrate 30 mg daily Please keep appointments with your healthcare providers Pending Studies at Discharge: No Stand-Alone Forms: My [facility] [employer], Smoking Cessation Medications and DC Order Prescriptions: New isosorbide mononitrate 30 mg Tablet Extended Release 24 Hr 30 mg PO QAM Qty: 30 0RF aspirin 81 mg Tablet,Delayed Release (Dr/Ec) 81 mg PO QAM Qty: 30 0RF Continued tamsulosin 0.4 mg capsule 0.4 mg PO DAILY nitroglycerin [Nitrostat] 0.4 mg tablet, sublingual 0.4 mg Sublingual Q5M PRN (Reason: chest pain) Qty: 25 1RF Rx Instructions: As needed for chest pain or pressure. May repeat in 5 min. Call 911 if no relief. lisinopril 5 mg tablet 5 mg PO DAILY finasteride 5 mg tablet 5 mg PO DAILY rosuvastatin 20 mg tablet 20 mg PO DAILY donepezil 5 mg tablet 5 mg PO DAILY metoprolol tartrate 25 mg tablet 25 mg PO BID Discharge Orders: Discharge Order (Routine); Ordered 09/06/25 Ordered By: Dustin Hoff/Other Patient Handouts: Prediabetes, 5 Steps for Eating Healthier Admission Data Admit Date/Time: 09/04/25 18:45 Attending Provider: Dustin Olivia Admit Provider: Manuelito Ruiz Primary Care Provider: Joseph Christie Other Providers: Manuelito Ruiz; Ruy Piedra Other Interventions: Discharge Summary Assessment (RN) Last Done: 09/06/25 12:15
== END 2025-09-06 13:15 | disposition home or self-care (01) ==
LOC: ED 16:51 → 2S 16:51 → SUATTDRO 18:45 → 2S 21:14